=== PATIENT | female | born 1935 | race Caucasian/White ===

== ENCOUNTER → 2016-09-15 | Outpatient (CLI) | payer MEDICARE, MEDICAID ==
[~2016-09-15] MED LIST: ANAS1TAB7 PO; ATOR10TA66 PO; ATRV10T; B2/V1TAB PO; BENZ-13 PO; BENZ200C25; BETA1BEA; BISA5TAB8 PO; BSC10SU; CALC1TAB53 TP; CINA30TA2 PO; DOXY-227 PO; FAMO-119 PO; FAMO20TA3 PO; FENO145T2; GLYB6TAB; HYDR-3816 PO; ICAPS; IRON50VI; LISI20TA; METO-272 PO; METO25TA2; MNTL10T; MTL5T; NF-GLIP2.5 PO; NUT.237L54; ONDA4TAB8 PO; PANT40TA2 PO; POLY119P5 PO; QUET25TA PO; SENSIPAR; SEVE800T7 PO; TR5C15; TRIM100T7 PO; VALS1TAB4; WARF-48 PO; WARF1TAB6 PO; [UNRECOGNIZED DRUG - OTHER]; lipitor PO
--- OUTSIDE RECORDS SUMMARY | 2016-09-15 13:35 | XMS REPORT | Continuity of Care Document ---
Author Author [facility] Organization [facility] Address Unknown Phone Unavailable Care Team Providers Care Bailing Machine Operator Name Role Phone Self, Roque PCP [phone] Source Comments Some departments are not documenting in the electronic medical record. If you do not see the information that you expected, contact Release of Information in the Health Information Management department at [phone] for further assistance in locating additional records.[facility] Active Allergies and Adverse Reactions Allergen Noted Date Severity Reactions Comments Actos 03/01/2012 UNKNOWN Ambien 03/01/2012 UNKNOWN Benzonatate 03/01/2012 UNKNOWN Bextra 03/01/2012 UNKNOWN Codeine 03/01/2012 UNKNOWN Detrol 03/01/2012 UNKNOWN Hiprex 03/01/2012 UNKNOWN Levaquin 03/01/2012 UNKNOWN Macrobid 03/01/2012 UNKNOWN Macrodantin 03/01/2012 UNKNOWN Metolazone 03/01/2012 UNKNOWN Naprosyn 03/01/2012 UNKNOWN Neurontin 03/01/2012 UNKNOWN Pcn 03/01/2012 UNKNOWN Phenergan 03/01/2012 UNKNOWN Prednisone 03/01/2012 UNKNOWN Prevacid 03/01/2012 UNKNOWN Sulfamethoxazole-Trimetho 03/01/2012 UNKNOWN prim Tylenol 03/01/2012 UNKNOWN Current Medications Prescription Sig. Disp. Refills Start End Date Status Date FENOFIBRATE PO Take by mouth. Active VALSARTAN (DIOVAN PO) Take by mouth. Active QUETIAPINE FUMARATE Take by mouth. Active (SEROQUEL PO) ROSUVASTATIN CALCIUM Take by mouth. Active (CRESTOR PO) BETA-CAROTENE(A) W-C & Take by mouth. Active E/MIN (ICAPS PO) SEVELAMER CARBONATE Take by mouth. Active (RENVELA PO) WARFARIN SODIUM (WARFARIN Take by mouth. Active PO) GLIPIZIDE PO Take by mouth. Active CINACALCET HCL (SENSIPAR Take by mouth. Active PO) Active Problems Problem Noted Date Entropion 04/25/2013 Exudative age-related macular degeneration of left eye 08/09/2012 Overview: Had Eylea x 1-2 doses in summer Lucentis last two doses, appears to be responding now L ast Assessment & Plan: OCT shows no re-accumulation of fluid Recommend Lucentis OS today and extend interval to 5 wks R/b/a discussed. Informed consent obtained. No complications. RTC 5 wks Mild nonproliferative diabetic retinopathy OU 04/24/2012 Last Assessment & Plan: Doesn't know HgbA1c Reports AM FSBS ~104-106 typically center involving [facility] OU - Diabetic macular edema 04/24/2012 PC IOL OU - Lens replaced by other means 04/24/2012 Last Assessment & Plan: Stable. Continue to monitor. Social History Tobacco Use Types Packs/Day Years Used Date Former Smoker Cigarettes 0.5 Quit: 10/23/1967 Comments: Quit 1967 Alcohol Use Drinks/Week oz/Week Comments Yes rare alcohol consumption Last Filed Vital Signs Vital Sign Reading Time Taken Blood Pressure 107/46 08/13/2013 1:57 PM LINSEED OIL ORDER FILLER Pulse 76 08/13/2013 1:57 PM [employer] ORDER FILLER Temperature 36.6 C (97.9 F) 04/10/2013 1:15 PM CDT Respiratory Rate - - Height 1.524 m (5') 06/06/2013 12:50 PM CDT Weight 90.357 kg (199 lb 3.2 oz) 08/13/2013 1:57 PM [employer] ORDER FILLER Body Mass Index 38.9 08/13/2013 1:57 PM LINSE[employer] O[employer] ORDER FILLER Oxygen Saturation 98% 04/10/2013 1:15 PM CDT Plan of Care Health Maintenance Due Date Last Done Comments Physical (Comprehensive) 1944 Exam Pertussis Vaccine 1948 Tetanus Vaccine 1954 Foot Exam 1955 Hba1c 1955 Microalbumin 1955 Shingles Vaccine 1997 Osteoporosis Screening 2002 Prevnar/Pneumovax (#1) 2002 Dilated Eye Exam 05/02/2014 05/02/2013, 04/02/2013, 02/28/2013 Additional history exists Influenza Vaccine 04/14/2015 Results from Last 3 Months Not on file
--- NOTE | 2016-09-15 15:10 | Diagnostic Imaging Report ---
PROCEDURE: MRI left upper extremity without contrast. TECHNIQUE: Multiplanar, multisequence non contrast-enhanced MRI of the left upper extremity was accomplished. INDICATION: Left shoulder pain. FINDINGS: There is no os acromiale or Hill-Sachs deformity. There is acromioclavicular osteoarthritis with inferior osteophytes more prominent at the clavicular side of the joint. This is associated with mild impression upon the underlying supraspinatus myotendinous junction. The supraspinatus and infraspinatus tendons demonstrate thickening with increased signal compatible with tendinosis. There is a focal bursal-side tear along the tendon insertion site in the supraspinatus. No full-thickness or retracted tear. The subscapularis tendon is associated with distal intrasubstance partial tear. The long head of biceps tendon is within its groove. There is a small glenohumeral joint effusion. There is increased signal through the superior segment of the labrum may relate to a SLAP tear. This can be better evaluated with an MR arthrogram, however. There is slight atrophy of the subscapularis and deltoid muscles. The bone marrow signal demonstrates tiny cystic changes deep to the bicipital groove and along the insertion site of the supraspinatus and infraspinatus tendons. IMPRESSION: 1. 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 2. Rotator cuff tendinosis with bursal side partial tear at the tendon insertion of the supraspinatus. 3. Intrasubstance partial tear of the subscapularis tendon. 4. Suggestion of a SLAP tear. This can be better evaluated with MR arthrogram if needed. Dictated by: Dictated on workstation # [id number]
== END ==
LOC: RAD 13:30
PROVIDERS: ATTEND Orthopaedic Surgery
DX: M25.512 Pain in left shoulder (principal)
CPT/HCPCS: 73221

== ENCOUNTER 2016-10-24 13:45 | Emergency (ER) | payer MEDICARE, MEDICAID ==
[~2016-10-24] VITALS: Ht 165.1 cm; Wt 77.6 kg
[~2016-10-24 13:45] MED LIST changes: -ANAS1TAB7 PO; -ATOR10TA66 PO; -B2/V1TAB PO; -BENZ-13 PO; -BISA5TAB8 PO; -DOXY-227 PO; -FAMO-119 PO; -FAMO20TA3 PO; -HYDR-3816 PO; -METO-272 PO; -ONDA4TAB8 PO; -POLY119P5 PO; -WARF-48 PO
--- OUTSIDE RECORDS SUMMARY | 2016-10-24 13:50 | XMS REPORT | Continuity of Care Document ---
Author Author [facility] Organization [facility] Address Unknown Phone Unavailable Care Team Providers Care Consumer Recruiter Name Role Phone Self, Roque PCP [phone] Source Comments Some departments are not documenting in the electronic medical record. If you do not see the information that you expected, contact Release of Information in the Health Information Management department at [phone] for further assistance in locating additional records.[facility] Active Allergies and Adverse Reactions Allergen [...] Taken Blood Pressure 107/46 08/13/2013 1:57 PM FILM READER Pulse 76 08/13/2013 1:57 PM FILM READER Temperature 36.6 C (97.9 F) 04/10/2013 1:15 PM CDT Respiratory Rate - - Height 1.524 m (5') 06/06/2013 12:50 PM CDT Weight 90.357 kg (199 lb 3.2 oz) 08/13/2013 1:57 PM FILM READER Body Mass Index 38.9 08/13/2013 1:57 PM FILM READER Oxygen Saturation 98% 04/10/2013 1:15 PM CDT [...]
--- NOTE | 2016-10-24 14:02 | Diagnostic Imaging Report ---
EXAM: CT head. TECHNIQUE: Noncontrast axial images of the brain were obtained. INDICATION: Syncope. The left side facial droop and left arm weakness. FINDINGS: There is no intracranial hemorrhage, edema or mass effect. The brain parenchyma demonstrate the mild periventricular and deep white hypodensities compatible with chronic microvascular ischemic changes. No hydrocephalus. The visualized portions of the orbits and paranasal sinuses appear unremarkable. IMPRESSION: No acute process. Dictated by: Dictated on workstation # [id number]
--- NOTE | 2016-10-24 14:09 | Diagnostic Imaging Report ---
EXAMINATION: Portable upright radiograph of the chest. INDICATION: Syncope. Left-sided facial droop and left arm weakness. COMPARISON: 11/01/2015. FINDINGS: There is mild interstitial thickening which may relate to vascular congestion. There is minimal right basilar infiltrates or atelectasis. The heart size is slightly enlarged. No significant effusion or pneumothorax. The mediastinum and dee appear unremarkable. Surgical clips in the left axilla/upper left chest region seen. IMPRESSION: There is cardiomegaly with mild vascular congestion. Minimal right basilar infiltrates or atelectasis also present. Dictated by: Dictated on workstation # [id number]
--- NOTE | 2016-10-24 14:31 | ED Neurological Problem ---
General Chief Complaint: Neuro-Stroke Like Symptoms Stated Complaint: POSS STROKE Nursing Triage Note: Was receiving dialysis and had syncopal episode. Was reported to be unresponsive but improved. EMS reported left sided drooping. On arrival- no drooping, lethargic but responsive confused to place. Movement noted to arms and legs, able to squeeze arms and pull with feet. Refuses to hold arms or legs up. States she was been very weak for several days Nursing Sepsis Screen: No Definite Risk Source: patient, EMS, RN notes reviewed, caregiver Exam Limitations: clinical condition History of Present Illness Time seen by provider: 13:46 Initial Comments As above and below. Patient believes incident is related to her neck problem. Apparently going to have surgery on neck by Dr. Hand once she is cleared by Cardiology c/ who she is scheduled to see 11/19/16, which is the soonest Dr. Glover could get her in. Denies any chest pain. Associated Symptoms: confusion loss of consciousness weakness Allergies and Home Medications Allergies Coded Allergies: Nitrofurantoin Macrocrystal (Unverified Allergy, Unknown, 10/24/16) benzonatate (Unverified Allergy, Unknown, 10/24/16) gabapentin (Unverified Allergy, Unknown, 10/24/16) lansoprazole (Unverified Allergy, Unknown, 10/24/16) methenamine (Unverified Allergy, Unknown, 10/24/16) naproxen (Unverified Allergy, Unknown, 10/24/16) nitrofurantoin (Unverified Allergy, Unknown, 10/24/16) pioglitazone HCl (Unverified Allergy, Unknown, 10/24/16) prednisone (Unverified Allergy, Unknown, 10/24/16) promethazine (Unverified Allergy, Unknown, 10/24/16) valdecoxib (Unverified Allergy, Unknown, 10/24/16) zolpidem tartrate (Unverified Allergy, Unknown, 10/24/16) levofloxacin (Unverified Adverse Reaction, Unknown, 10/24/16) tolterodine tartrate (Unverified Adverse Reaction, Unknown, 10/24/16) Uncoded Allergies: MELOLAZONE (Allergy, Unknown, 06/23/14) NITROFURATOIN (Allergy, Unknown, 06/23/14) SUFAMETHOXAZOLE (Allergy, Unknown, 06/23/14) APAP/CODEINE (Adverse Reaction, Unknown, 06/23/14) Home Medications 1 CAP BID (Reported) #1 5 MG PO UD (Reported) Calcium Acetate/Al Sulfate 1 Tab.eff Tablet.eff 2 TAB.EFF TP TID (Reported) Cinacalcet HCl 30 Mg Tablet 30 MG PO (Reported) Famotidine 20 Mg Tablet #30 20 MG PO HS Prescribed by: AMY DICKEY on 10/24/16 1637 Fenofibrate,Micronized 145 Mg Tablet (Reported) Glipizide 2.5 Mg Tab 2.5 MG PO (Reported) Hctz/Valsartan 1 Each Tablet (Reported) Pantoprazole Sodium 40 Mg Tablet.dr 40 MG PO DAILY (Reported) Quetiapine Fumarate 25 Mg Tablet 12.5 MG PO HS (Reported) Sevelamer Carbonate 800 Mg Tablet (Reported) Trimethoprim 100 Mg Tablet 100 MG PO DAILY (Reported) Constitutional: see HPI weakness Cardiovascular: see HPI syncope : No Musculoskeletal: neck pain Psychiatric/Neurological: See HPI Weakness All Other Systems Reviewed Negative Unless Noted: Yes Past Slsfrti-Hspmbn-Mwsgto Hx Patient Social History Alcohol Use: Denies Use Recreational Drug Use: No Smoking Status: Former Smoker 2nd Hand Smoke Exposure: No Recent Foreign Travel: No Contact w/Someone Who Travel: No Recent Infectious Disease Expo: No Recent Hopitalizations: No Immunizations Up To Date Tetanus Booster (TDap): Unknown Date of Influenza Vaccine: May 14, 2014 Seasonal Allergies Seasonal Allergies: Yes Surgeries HX Surgeries: Yes (CYSTOCELE, RECTOCELE, SPLEEN) Surgeries: Hysterectomy Respiratory Hx Respiratory Disorders: No Cardiovascular Hx Cardiac Disorders: Yes Cardiac Disorders: Atrial Fibrillation, High Cholesterol, Hypertension Neurological Hx Neurological Disorders: No 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 System 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 Genitourinary Hx Genitourinary Disorders: Yes Genitourinary Disorders: Dialysis, UTI-Chronic Gastrointestinal Hx Gastrointestinal Disorders: No Musculoskeletal Hx Musculoskeletal Disorders: No Endocrine Hx Endocrine Disorders: Yes (HYPERPARATHYROIDISM) Endocrine Disorders: Diabetes, Non-Insulin dep HEENT HX ENT Disorders: No Cancer Hx Cancer: No Psychosocial Hx Psychiatric Problems: Yes Behavioral Health Disorders: Bipolar Integumentary HX Skin/Integumentary Disorder: No Blood Transfusions Hx Blood Disorders: No Adverse Reaction to a Blood Tr: No Physical Exam Vital Signs Vital Sign - Last 12Hours 10/24/16 13:45 Temp 98.6 Pulse 78 Resp 15 B/P 153/59 Pulse Ox 97 Capillary Refill : Less Than 3 Seconds General Appearance: WD/WN no apparent distress HEENT: PERRL/EOMI normal ENT inspection Neck: supple Respiratory: no respiratory distress Cardiovascular: regular rate, rhythm Neurologic/Psychiatric: no motor/sensory deficits alert depressed affect Crainal Nerves: normal hearing normal speech PERRL Coordination/Gait: normal finger to nose Motor/Sensory: no motor deficit no sensory deficit no pronator drift Skin: warm/dry Stroke NIH Stroke Scale Assessment Level of Consciousness: 0=Alert Level of Consciousness-Questio: 0=Answers both month/age LOC Commands: 0=Performs both tasks Gaze: 0=Normal Visual Hernandez: 0=No visual loss Facial Movement (Facial Paresi: 0=Normal symmetrical mnt Motor Function-Arms Right: 3=No effort/gravity Motor Function-Arms Left: 3=No effort/gravity Motor Function-Legs Right: 3=No effort/gravity Motor Function-Legs Left: 3=No effort/gravity Limb Ataxia: 0=Absent Sensory: 1=Mild to Moderate loss Best Language: 0=No aphasia Dysarthria: 0=Normal Extinction & Inattention: 0=No abnormality Focused Exam Lactic Acid Level Laboratory Tests Test 10/24/16 14:29 10/24/16 14:37 Glucometer 125MG/DL (70-110) H Alanine Aminotransferase (ALT/SGPT) 19U/L (0-55) Albumin 3.4G/DL (3.2-4.5) Alkaline Phosphatase 76U/L (40-136) Anion Gap 13MMOL/L (5-14) Aspartate Amino Transf (AST/SGOT) 18U/L (5-34) BUN/Creatinine Ratio 6 Blood Urea Nitrogen 27MG/DL (7-18) H Calcium Level 9.9MG/DL (8.5-10.1) Carbon Dioxide Level 32MMOL/L (21-32) Chloride Level 95MMOL/L (98-107) L Creatinine 4.25MG/DL (0.60-1.30) H Estimat Glomerular Filtration Rate 10 Glucose Level 121MG/DL (70-105) H Potassium Level 3.9MMOL/L (3.6-5.0) Sodium Level 140MMOL/L (135-145) Total Bilirubin 0.3MG/DL (0.1-1.0) Total Protein 6.9G/DL (6.4-8.2) Troponin I < 0.30NG/ML (<0.30) Progress/Results/Core Measures Results/Orders Lab Results Laboratory Tests Test 10/24/16 14:29 10/24/16 14:37 Range/Units Glucometer 125 H 70-110 MG/DL Activated Partial Thromboplast Time 28 24-35 SEC Alanine Aminotransferase (ALT/SGPT) 19 0-55 U/L Albumin 3.4 3.2-4.5 G/DL Alkaline Phosphatase 76 40-136 U/L Anion Gap 13 5-14 MMOL/L Aspartate Amino Transf (AST/SGOT) 18 5-34 U/L BUN/Creatinine Ratio 6 Band Neutrophils 0 % Basophils # (Auto) 0.1 0.0-0.1 10^3/uL Basophils % (Manual) 1 % Basophils (%) (Auto) 1 0-10 % Blood Morphology Comment NORMAL Blood Urea Nitrogen 27 H 7-18 MG/DL Calcium Level 9.9 8.5-10.1 MG/DL Carbon Dioxide Level 32 21-32 MMOL/L Chloride Level 95 L 98-107 MMOL/L Creatinine 4.25 H 0.60-1.30 MG/DL D-Dimer 0.43 0.00-0.49 UG/ML Eosinophils # (Auto) 0.2 0.0-0.3 10^3/uL Eosinophils % (Manual) 2 % Eosinophils (%) (Auto) 1 0-10 % Estimat Glomerular Filtration Rate 10 Glucose Level 121 H 70-105 MG/DL Hematocrit 34 L 35-52 % Hemoglobin 11.1 L 11.5-16.0 G/DL INR Comment 1.3 0.8-1.4 Lymphocytes # (Auto) 3.3 1.0-4.0 X 10^3 Lymphocytes % (Manual) 25 % Lymphocytes (%) (Auto) 21 12-44 % Mean Corpuscular Hemoglobin 31 25-34 PG Mean Corpuscular Hemoglobin Concent 33 32-36 G/DL Mean Corpuscular Volume 93 80-99 FL Mean Platelet Volume 11.6 H 7.4-10.4 FL Monocytes # (Auto) 1.8 H 0.0-1.0 X 10^3 Monocytes % (Manual) 10 % Monocytes (%) (Auto) 11 0-12 % Neutrophils # (Auto) 10.4 H 1.8-7.8 X 10^3 Neutrophils % (Manual) 62 % Neutrophils (%) (Auto) 66 42-75 % Platelet Count 402 H 130-400 10^3/uL Potassium Level 3.9 3.6-5.0 MMOL/L Prothrombin Time 16.3 H 12.2-14.7 SEC Red Blood Count 3.60 L 4.35-5.85 10^6/uL Red Cell Distribution Width 16.0 H 10.0-14.5 % Sodium Level 140 135-145 MMOL/L Total Bilirubin 0.3 0.1-1.0 MG/DL Total Protein 6.9 6.4-8.2 G/DL Troponin I < 0.30 <0.30 NG/ML White Blood Count 15.7 H 4.3-11.0 10^3/uL My Orders Orders-AMY DICKEY DO Cbc With Automated Diff (10/24/16 13:46) Protime With Inr (10/24/16 13:46) Partial Thromboplastin Time (10/24/16 13:46) Comprehensive Metabolic Panel (10/24/16 13:46) Fibrin Degradation Products (10/24/16 13:46) Troponin I (10/24/16 13:46) Chest 1 View, Ap/Pa Only (10/24/16 13:46) Catheter(Urinary) Insert & Ass 03,15 (10/24/16 13:46) Ekg Tracing (10/24/16 13:46) Nothing By Mouth (10/24/16 Dinner) Accucheck Stat ONCE (10/24/16 13:46) Saline Lock/Iv-Start (10/24/16 13:46) Saline Lock/Iv-Start (10/24/16 13:46) Vital Signs-Stroke Q1H (10/24/16 13:46) Ct Head Wo-R/O Stroke (10/24/16 13:46) O2 (10/24/16 13:46) Intake & Output 06,14,22 (10/24/16 13:46) Monitor-Rhythm Ecg Trace Only (10/24/16 13:46) Dysphagia Screening Tool (10/24/16 13:46) Manual Differential (10/24/16 14:37) Vital Signs/I&O Vital Sign - Last 12Hours 3/13/17 13:45 Temp 98.6 Pulse 78 Resp 15 B/P 153/59 Pulse Ox 97 Blood Pressure Mean: 90 ECG Initial ECG Impression Date: Oct 24, 2016 Initial ECG Impression Time: 14:25 Initial ECG Rate: 77 Initial ECG Rhythm: Normal Sinus Comment consider anterior infarct Diagnostic Imaging Diagonstic Imaging: Xray, CT Plain Films/CT/US/NM/MRI: chest, head (nothing really acute per CT head or CXR chest per radiologist) Departure Impression Impression: Primary Impression: Syncope Additional Impression: ESRD (end stage renal disease) on dialysis Disposition: HOME, SELF-CARE Condition: Stable Departure-Patient Inst. Decision time for Depature: 16:35 Referrals: Kian AGUILAR MD Patient Instructions: Syncope (Fainting) (DC) Scripts Famotidine (Pepcid)20 Mg [id number] Mg PO HS #30 TAB Ref 0 Prov:AMY DICKEY DO 10/24/16 AMY DICKEY DO Oct 24, 2016 14:31
[2016-10-24 15:37] LABS: BASOPHILS # (AUTO) 0.1 10^3/uL (0.0-0.1); BASOPHILS % (AUTO) 1 % (0-10); EOSINOPHILS # (AUTO) 0.2 10^3/uL (0.0-0.3); EOSINOPHILS % (AUTO) 1 % (0-10); LYMPHOCYTES # (AUTO) 3.3 X 10^3 (1.0-4.0); LYMPHOCYTES % (AUTO) 21 % (12-44); MEAN CORPUSCULAR HEMOGLOBIN 31 PG (25-34); MEAN CORPUSCULAR HGB CONC 33 G/DL (32-36); MEAN CORPUSCULAR VOLUME 93 FL (80-99); MEAN PLATELET VOLUME 11.6 FL (7.4-10.4); MONOCYTES # (AUTO) 1.8 X 10^3 (0.0-1.0); MONOCYTES % (AUTO) 11 % (0-12); NEUTROPHILS # (AUTO) 10.4 X 10^3 (1.8-7.8); NEUTROPHILS % (AUTO) 66 % (42-75); PLATELET COUNT 402 10^3/uL (130-400); WHITE BLOOD COUNT 15.7 10^3/uL (4.3-11.0)
[2016-10-24 15:48] LABS: INR 1.3 (0.8-1.4); PROTHROMBIN TIME PATIENT 16.3 SEC (12.2-14.7)
[2016-10-24 15:58] LABS: ALANINE AMINOTRANSFERASE 19 U/L (0-55); ALBUMIN 3.4 G/DL (3.2-4.5); ANION GAP 13 MMOL/L (5-14); ASPARTATE AMINO TRANSFERASE 18 U/L (5-34); BILIRUBIN,TOTAL 0.3 MG/DL (0.1-1.0); BLOOD UREA NITROGEN 27 MG/DL (7-18); BUN/CREATININE RATIO 6; CALCIUM 9.9 MG/DL (8.5-10.1); CARBON DIOXIDE 32 MMOL/L (21-32); CHLORIDE 95 MMOL/L (98-107); CREATININE SERUM 4.25 MG/DL (0.60-1.30); GFR ESTIMATED 10; GLUCOSE 121 MG/DL (70-105); POTASSIUM 3.9 MMOL/L (3.6-5.0); SODIUM 140 MMOL/L (135-145); TOTAL PROTEIN 6.9 G/DL (6.4-8.2)
[2016-10-24 16:04] LABS: TROPONIN I < 0.30 NG/ML (<0.30)
[2016-10-24 16:11] LABS: BAND NEUTROPHILS 0 %; BASOPHILS % (MANUAL) 1 %; EOSINOPHILS % (MANUAL) 2 %; LYMPHOCYTES % (MANUAL) 25 %; NEUTROPHILS % (MANUAL) 62 %
[2016-10-24] MEDS ORDERED: FAMO-119 PO (16:37)
[2016-10-24 16:56] VITALS: BP 165/78
[2016-12-09] MEDS ORDERED: BISA5TAB8 PO (10:44)
[2016-12-09] MEDS ORDERED: HYDR-3816 PO (10:44)
== END 2016-10-24 16:59 | disposition home or self-care (01) ==
LOC: EDUNIT# 13:45 → ER 13:46
DX: R55 Syncope and collapse (principal); I51.7 Cardiomegaly; I12.0 Hypertensive chronic kidney disease with stage 5 chronic kidney disease or end stage renal disease; N18.6 End stage renal disease; Z99.2 Dependence on renal dialysis; E11.9 Type 2 diabetes mellitus without complications; Z79.84 Long term (current) use of oral hypoglycemic drugs; Z79.899 Other long term (current) drug therapy
CPT/HCPCS: 36415; 70450; 71010; 80053; 82962; 84484; 85007; 85027; 85379; 85610; 85730; 93005; 93041

== ENCOUNTER → 2016-10-27 | Outpatient (CLI) | payer MEDICARE, MEDICAID ==
[~2016-10-27] MED LIST changes: +ANAS1TAB7 PO; +ATOR10TA66 PO; +B2/V1TAB PO; +BENZ-13 PO; +BISA5TAB8 PO; +DOXY-227 PO; +FAMO-119 PO; +FAMO20TA3 PO; +HYDR-3816 PO; +METO-272 PO; +ONDA4TAB8 PO; +POLY119P5 PO; +WARF-48 PO
--- OUTSIDE RECORDS SUMMARY | 2016-10-27 13:19 | XMS REPORT | Continuity of Care Document ---
Author Author [facility] Organization [facility] Address Unknown Phone Unavailable Care Team Providers Care Lock Tender Chief Operator Name Role Phone Self, Roque PCP [phone] Source Comments Some departments are not documenting in the electronic medical record. If you do not see the information that you expected, contact Release of Information in the Health Information Management department at [phone] for further assistance in locating additional records.[facility] Active Allergies and Adverse Reactions Allergen [...] Taken Blood Pressure 107/46 08/13/2013 1:57 PM [employer]ICERS [employer] GU[employer] Pulse 76 08/13/2013 1:57 PM [employer] Temperature 36.6 C (97.9 F) 04/10/2013 1:15 PM CDT Respiratory Rate - - Height 1.524 m (5') 06/06/2013 12:50 PM CDT Weight 90.357 kg (199 lb 3.2 oz) 08/13/2013 1:57 PM [employer] Body Mass Index 38.9 08/13/2013 1:57 PM [employer] Oxygen Saturation 98% 04/10/2013 1:15 PM CDT [...]
--- NOTE | 2016-10-31 00:13 | ECHOCARDIOGRAPHY REPORT ---
PROCEDURE PHYSICIAN: ANDREW LOVE DATE OF PROCEDURE: 10/27/2016 TWO DIMENSIONAL ECHOCARDIOGRAM REPORT PRIMARY PHYSICIAN: OTHER PHYSICIAN: REFERRING PHYSICIAN: Dr. Ledezma ORDERING PHYSICIAN: INDICATION FOR THE PROCEDURE: Atrial fibrillation. MEASUREMENTS DERIVED VALUES LV DIAMETER (LAX) NORMALS NORMALS Diastolic 4.7 (3.6-5.2) Eject. Fract. 60% (60%+/-6%) Systolic (2.3-3.9) Diastolic Vol. % Shortening (0.22-0.42) Systolic Vol. Aortic Root IVS THICKNESS Diastolic 1 (0.6-1.1) LVPW THICKNESS Diastolic 1 (0.6-1.1) LA DIAMETER Systolic 4 (2.1-3.7) FINDINGS: 1. Technical quality is good. 2. The left ventricle is normal in size with normal contractility. Systolic function appeared to be normal. Estimated ejection fraction 60%. Diastolic dysfunction is suggested by Doppler. 3. The left atrium is in the upper normal limit in size. No clot or thrombus were seen within the left atrium. 4. The right atrium and right ventricle are normal in size. No clot or thrombus were seen within the right side. 5. Mitral valve is calcified with mild mitral regurgitation noted by color Doppler flow. No mitral valve prolapse. No mitral valve stenosis. 6. Aortic valve is calcified, trileaflet with normal opening and closing pattern. No significant aortic stenosis or regurgitation was seen. 7. Tricuspid valve is normal in morphology with mild tricuspid regurgitation noted by color Doppler flow. Doppler across tricuspid valve estimated pulmonary artery pressure of 16+ right atrial pressure. 8. Pulmonic valve is functioning normally. 9. No pericardial effusion. IN CONCLUSION: 1. Normal left ventricular size and systolic function. Estimated ejection fraction 60%. Diastolic dysfunction is suggested by Doppler. 2. Left atrium is in the upper normal limit in size. 3. Mild mitral and tricuspid regurgitation. 4. Estimated pulmonary artery pressure of 25 mmHg. 5. Aortic valve stenosis. No aortic stenosis. Job ID: [id number] Dictated Date: 10/30/2016 10:55:49 Radiology Manager Date: 10/31/2016 00:10:34 / shirley
== END ==
LOC: CARD 13:16
PROVIDERS: ATTEND Internal Medicine Cardiovascular Disease
DX: I48.91 Unspecified atrial fibrillation (principal); I10 Essential (primary) hypertension; E78.5 Hyperlipidemia, unspecified; E21.3 Hyperparathyroidism, unspecified; N39.0 Urinary tract infection, site not specified; Z72.0 Tobacco use
CPT/HCPCS: 93306

== ENCOUNTER 2016-10-31 09:54 | Emergency (ER) | payer MEDICARE, MEDICAID ==
[~2016-10-31] VITALS: Ht 165.1 cm; Wt 77.6 kg
[~2016-10-31 09:54] MED LIST changes: -ANAS1TAB7 PO; -ATOR10TA66 PO; -B2/V1TAB PO; -BENZ-13 PO; -BISA5TAB8 PO; -DOXY-227 PO; -FAMO20TA3 PO; -HYDR-3816 PO; -METO-272 PO; -ONDA4TAB8 PO; -POLY119P5 PO; -WARF-48 PO
--- OUTSIDE RECORDS SUMMARY | 2016-10-31 10:01 | XMS REPORT | Continuity of Care Document ---
Author Author [facility] Organization [facility] Address Unknown Phone Unavailable Care Team Providers Care Women'S Soccer Coach Name Role Phone Self, Roque PCP [phone] Source Comments Some departments are not documenting in the electronic medical record. If you do not see the information that you expected, contact Release of Information in the Health Information Management department at [phone] for further assistance in locating additional records.[facility] Active Allergies and Adverse Reactions Allergen [...] Taken Blood Pressure 107/46 08/13/2013 1:57 PM DIRECTOR EMPLOYMENT Pulse 76 08/13/2013 1:57 PM [employer]OR [employer]PL[employer]MENT Temperature 36.6 C (97.9 F) 04/10/2013 1:15 PM CDT Respiratory Rate - - Height 1.524 m (5') 06/06/2013 12:50 PM CDT Weight 90.357 kg (199 lb 3.2 oz) 08/13/2013 1:57 PM [employer] Body Mass Index 38.9 08/13/2013 1:57 PM [employer]OR [employer]PL[employer]MENT Oxygen Saturation 98% 04/10/2013 1:15 PM CDT [...]
--- NOTE | 2016-10-31 10:57 | Diagnostic Imaging Report ---
EXAMINATION: Two views of the right hip. INDICATION: Fall. FINDINGS: There is no fracture, dislocation, or radiopaque foreign body seen. Mild marginal osteophytes are noted. IMPRESSION: Mild right hip degenerative changes. Dictated by: Dictated on workstation # [id number]
--- NOTE | 2016-10-31 10:58 | Diagnostic Imaging Report ---
INDICATION: Status post fall with right-sided facial pain and neck pain. TECHNIQUE: A frontal chest was obtained at 1055 hours. COMPARISON: 10/24/2016. FINDINGS: There is cardiomegaly. There is mild central vascular prominence. There are chronic appearing increased interstitial markings. There is some linear atelectatic change in the right midlung. There is no pneumothorax, pleural fluid, or consolidation. There are surgical clips in the left upper chest. IMPRESSION: Cardiomegaly with chronic changes as above. No acute appearing abnormality. Dictated by: Dictated on workstation # [id number]
--- NOTE | 2016-10-31 10:59 | Diagnostic Imaging Report ---
EXAMINATION: AP view of the pelvis. INDICATION: Fall. FINDINGS: There is no fracture, dislocation, or radiopaque foreign body. There are mild degenerative changes in the hip joints and moderate degenerative sclerotic changes in the SI joints. There are also degenerative changes at the symphysis pubis and deformity along the inferior left pubic ramus, probably related to old injury. There is also posterior fusion hardware in the lower lumbar spine. IMPRESSION: No acute process. Dictated by: Dictated on workstation # [id number]
--- NOTE | 2016-10-31 11:12 | Diagnostic Imaging Report ---
PROCEDURE: CT head, face, and cervical spine without contrast. TECHNIQUE: Multiple contiguous axial images were obtained through the head, neck, and facial bones without the use of intravenous contrast. Sagittal and coronal reformations through the cervical spine and facial bones were also performed. INDICATION: Fall. FINDINGS: CT HEAD: There is no intracranial hemorrhage, edema or mass effect. The brain parenchyma demonstrate periventricular and deep white matter hypodensities compatible with chronic microvascular ischemic changes. There is no hydrocephalus. No extra-axial fluid collection or hemorrhage is seen. The calvarium appears unremarkable. MAXILLOFACIAL CT: The zygomatic arches are intact. The orbital campbell appear intact. No fracture seen. The paranasal sinuses demonstrate no hemorrhage with intact osseous campbell. Minimal mucosal thickening in the maxillary sinuses and anterior ethmoid air cells seen. The rest of the paranasal sinuses and mastoid air cells are clear. CT CERVICAL SPINE: The alignment of the posterior spinal line is satisfactory. The vertebral body heights are preserved. There is a moderate disc height loss at C7/T1 and mild disc height loss at the C3/4 level. There are posterior osteophytes prominent at C3/4 and C4/5. The predental space is not widened. There is normal alignment of the lateral masses of C1 and C2 and at the atlantooccipital joints. IMPRESSION: CT HEAD: No intracranial hemorrhage. CT MAXILLOFACIAL: No fracture seen. CT CERVICAL SPINE: Degenerative disc disease. No fracture seen. Dictated by: Dictated on workstation # [id number]
--- NOTE | 2016-10-31 11:16 | ED Fall/Injury ---
General Chief Complaint: Trauma-Non Activation Stated Complaint: FALL IN BATHTUB Nursing Triage Note: SEE TRIAGE Source: patient (DIFFICULT HISTORIAN AND VERY HOSTILE AND UNCOOPERATIVE) History of Present Illness Time seen by provider: 10:17 Initial Comments PT ARRIVES VIA POV FROM [facility] STATES SHE WAS TRYING TO GET TO THE BATHROOM AND HAD A BM ON THE FLOOR AND SLIPPED IN IT AND FELL SHE WAS TRYING TO SIT ON THE TOILET, HITTING HER FOREHEAD ON THE FLOOR C/O NECK PAIN ----PT HAS CHRONIC NECK PAIN AND IS TO HAVE SURGERY IN THE VERY NEAR FUTURE, WAS JUST CLEARED ON Monday10/27/16 BY CARDIOLOGY TO HAVE SURGERY. HAS A NECK BRACE AT HOME, BUT HAS NOT BEEN WEARING IT--STATES IS SUPPOSED TO WEAR IT AFTER SURGERY. CERVICAL COLLAR IMMEDIATELY PLACED ON ARRIVAL NO LOSS OF CONSCIOUSNESS NO PARESTHESIAS OR MOTOR DEFICITS NO FACIAL PAIN NO VISION CHANGES NO NAUSEA/VOMITING C/O RIGHT HIP PAIN Location Injury Occurred: HIP HEAD PCP: FT. OZZY BERKOWITZ Allergies and Home Medications Allergies Coded Allergies: Nitrofurantoin Macrocrystal (Unverified Allergy, Unknown, 10/24/16) benzonatate (Unverified Allergy, Unknown, 10/24/16) gabapentin (Unverified Allergy, Unknown, 10/24/16) lansoprazole (Unverified Allergy, Unknown, 10/24/16) methenamine (Unverified Allergy, Unknown, 10/24/16) naproxen (Unverified Allergy, Unknown, 10/24/16) nitrofurantoin (Unverified Allergy, Unknown, 10/24/16) pioglitazone HCl (Unverified Allergy, Unknown, 10/24/16) prednisone (Unverified Allergy, Unknown, 10/24/16) promethazine (Unverified Allergy, Unknown, 10/24/16) valdecoxib (Unverified Allergy, Unknown, 10/24/16) zolpidem tartrate (Unverified Allergy, Unknown, 10/24/16) levofloxacin (Unverified Adverse Reaction, Unknown, 10/24/16) tolterodine tartrate (Unverified Adverse Reaction, Unknown, 10/24/16) Uncoded Allergies: MELOLAZONE (Allergy, Unknown, 06/23/14) NITROFURATOIN (Allergy, Unknown, 06/23/14) SUFAMETHOXAZOLE (Allergy, Unknown, 06/23/14) APAP/CODEINE (Adverse Reaction, Unknown, 06/23/14) Home Medications Calcium Acetate/Al Sulfate 1 Tab.eff Tablet.eff, 2 TAB.EFF TP TID, (Reported) Cinacalcet HCl 30 Mg Tablet, 30 MG PO, (Reported) Famotidine 20 Mg Tablet, 20 MG PO HS, #30 Ref 0 Prescribed by: AMY DICKEY on 10/24/16 1637 Fenofibrate,Micronized 145 Mg Tablet, (Reported) Glipizide 2.5 Mg Tab, 2.5 MG PO, (Reported) Hctz/Valsartan 1 Each Tablet, (Reported) Pantoprazole Sodium 40 Mg Tablet.dr, 40 MG PO DAILY, (Reported) Quetiapine Fumarate 25 Mg Tablet, 12.5 MG PO HS, (Reported) Sevelamer Carbonate 800 Mg Tablet, (Reported) Trimethoprim 100 Mg Tablet, 100 MG PO DAILY, (Reported) [Icaps] , 1 CAP BID, (Reported) [lipitor] , 5 MG PO UD, #1 (Reported) Constitutional: no symptoms reported Eyes: No Symptoms Reported Ears, Nose, Mouth, Throat: no symptoms reported Respiratory: no symptoms reported Cardiovascular: no symptoms reported Gastrointestinal: no symptoms reported Genitourinary: no symptoms reported Musculoskeletal: see HPI Skin: no symptoms reported Psychiatric/Neurological: No Symptoms Reported, Denies Headache, Denies Numbness, Denies Paresthesia, Denies Seizure, Denies Tingling, Denies Weakness Past Mujpgvf-Kfyetu-Bvgaoq Hx Patient Social History Alcohol Use: Denies Use Recreational Drug Use: No Smoking Status: Never a Smoker 2nd Hand Smoke Exposure: No Recent Foreign Travel: No Contact w/Someone Who Travel: No Recent Infectious Disease Expo: No Recent Hopitalizations: No Immunizations Up To Date Tetanus Booster (TDap): Unknown Date of Influenza Vaccine: May 14, 2014 Seasonal Allergies Seasonal Allergies: Yes Surgeries HX Surgeries: Yes (CYSTOCELE, RECTOCELE, SPLEEN;LUMBAR SURGERY; RIGHT AV FISTUAL) Surgeries: Dialysis, Hysterectomy, Orthopedic, Vascular Surgery Respiratory Hx Respiratory Disorders: No Cardiovascular Hx Cardiac Disorders: Yes Cardiac Disorders: Atrial Fibrillation, High Cholesterol, Hypertension Neurological Hx Neurological Disorders: No 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 Genitourinary Hx Genitourinary Disorders: Yes Genitourinary Disorders: Renal Failure, Dialysis, UTI-Chronic Gastrointestinal Hx Gastrointestinal Disorders: No Musculoskeletal Hx Musculoskeletal Disorders: Yes (CHRONIC NECK PAIN ) Musculoskeletal Disorders: Chronic Back Pain Endocrine Hx Endocrine Disorders: Yes (HYPERPARATHYROIDISM) Endocrine Disorders: Parathyroid Disease, Diabetes, Non-Insulin dep HEENT HX ENT Disorders: No Cancer Hx Cancer: No Psychosocial Hx Psychiatric Problems: Yes Behavioral Health Disorders: Anxiety, Bipolar, Depression Integumentary HX Skin/Integumentary Disorder: No Blood Transfusions Hx Blood Disorders: No Adverse Reaction to a Blood Tr: No Physical Exam Vital Signs Vital Sign - Last 12Hours 10/31/16 10:15 Temp 98.5 Pulse 85 Resp 18 B/P (MAP) 207/84 Pulse Ox 100 O2 Delivery Room Air Capillary Refill : Less Than 3 Seconds General Appearance: WD/WN, no apparent distress HEENT: PERRL/EOMI, normal ENT inspection, TMs normal, pharynx normal, other ( NO EXTERNAL EVIDENCE OF TRAUMA) Neck: tender lateral, tender midline Cardiovascular: normal peripheral pulses, regular rate, rhythm, no murmur Respiratory: chest non-tender, normal breath sounds, no respiratory distress, no accessory muscle use Peripheral Pulses: 1+ Dorsalis Pedis (R), 1+ Left Dors-Pedis (L), 1+ Radial Pulses (R), 1+ Radial Pulses (L) Gastrointestinal: normal bowel sounds, non tender, soft Back: normal inspection, no CVA tenderness, no vertebral tenderness Extremities: normal range of motion, no pedal edema, no calf tenderness, normal capillary refill, other (NO TENDERNESS TO HIP, BUT C/O PAIN ON WALKING . 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 nml as tested, no motor/sensory deficits, alert, oriented x 3 Skin: normal color, warm/dry, other (NO EXTERNAL EVIDENCE OF TRAUMA ANYWHERE) Trip Coma Score Best Eye Response: (4) Open Spontaneously Best Verbal Response: (5) Oriented Best Motor Response: (6) Obeys Commands Trip Total: 15 Progress/Results/Core Measures Results/Orders My Orders Orders - ALYSA JACOBS DO Ct Head/Face/Cervical Wo (10/31/16 10:24) Chest 1 View, Ap/Pa Only (10/31/16 10:24) Pelvis (10/31/16 10:24) Hip, Right, 2 Views (10/31/16 10:24) Cervical Collar (10/31/16 10:24) Vital Signs/I&O Vital Sign - Last 12Hours 10/31/16 10/31/16 10/31/16 10:15 11:08 11:50 Temp 98.5 98.5 Pulse 85 88 88 Resp 18 18 18 B/P (MAP) 207/84 207/88 (127) Pulse Ox 100 94 94 O2 Delivery Room Air Blood Pressure Mean: [address] HEAD/MAXILLOFACIALS/CERVICAL SPINE--NO ACUTE PROCESS, CHRONIC SMALL VESSEL CHANGES, DEGENERATIVE CHANGES OF CERVICAL SPINE CXR--NO ACUTE PROCESS, CHRONIC CHANGES PELVIS/ RIGHT HIP XRAYS--NO ACUTE PROCESS, DEGENERATIVE CHANGES IN HIP ALL PER RADIOLOGIST REPORTS @ 1116 Reviewed: Reviewed by Me Departure Impression Impression: Primary Impression: Status post fall Additional Impressions: Head contusion Cervical strain EXACERBATION OF CHRONIC NECK PAIN Contusion of right hip Disposition: [address] [facility] Departure-Patient Inst. Referrals: SELF,PAO LOPEZ (PCP/Family) Primary Care Physician Patient Instructions: Chronic Neck Pain (DC), Contusion (DC), Hip Pain (DC), Hip Pain in Older People, Minor Head Injury (DC), Neck Sprain (DC), Preventing Falls in the Older Adult Add. Discharge Instructions: WEAR YOUR CERVICAL COLLAR AT ALL TIMES TAKE YOUR REGULAR MEDICATIONS PRESCRIBED ACTIVITIES TOLERATED FOLLOW UP WITH YOUR DR IN 4-5 DAYS IF NO BETTER All discharge instructions reviewed with patient and/or family. Voiced understanding. ALYSA JACOBS DO Oct 31, 2016 11:16
[2016-10-31 11:50] VITALS: BP 183/71
[2016-12-09] MEDS ORDERED: HYDR-3816 PO (10:44)
[2016-12-09] MEDS ORDERED: BISA5TAB8 PO (10:44)
== END 2016-10-31 11:50 ==
LOC: EDUNIT# 09:54 → ER 09:56
DX: S00.93XA Contusion of unspecified part of head, initial encounter (principal); S70.01XA Contusion of right hip, initial encounter; S16.1XXA Strain of muscle, fascia and tendon at neck level, initial encounter; M47.812 Spondylosis without myelopathy or radiculopathy, cervical region; M16.11 Unilateral primary osteoarthritis, right hip; I10 Essential (primary) hypertension; E11.9 Type 2 diabetes mellitus without complications; Z79.84 Long term (current) use of oral hypoglycemic drugs; Z79.899 Other long term (current) drug therapy; W18.2XXA Fall in (into) shower or empty bathtub, initial encounter; Y93.E1 Activity, personal bathing and showering; Y99.8 Other external cause status
CPT/HCPCS: 70450; 70486; 71010; 72125; 72170; 73502; 99282

== ENCOUNTER 2016-11-13 03:15 | Emergency (ER) | payer MEDICARE, MEDICAID ==
[~2016-11-13] VITALS: Ht 165.1 cm; Wt 77.3 kg
[2016-11-13] MEDS ORDERED: SEVE800T7 PO (03:25)
[2016-11-13] MEDS ORDERED: ATOR10TA66 PO (03:25)
[2016-11-13] MEDS ORDERED: METO-272 PO (03:25)
[2016-11-13] MEDS ORDERED: WARF-48 PO (03:25)
[2016-11-13] MEDS ORDERED: ANAS1TAB7 PO (03:25)
[2016-11-13 03:54] LABS: BASOPHILS # (AUTO) 0.1 10^3/uL (0.0-0.1); BASOPHILS % (AUTO) 1 % (0-10); EOSINOPHILS # (AUTO) 0.3 10^3/uL (0.0-0.3); EOSINOPHILS % (AUTO) 2 % (0-10); LYMPHOCYTES % (AUTO) 29 % (12-44); MEAN CORPUSCULAR HEMOGLOBIN 31 PG (25-34); MEAN CORPUSCULAR HGB CONC 32 G/DL (32-36); MEAN CORPUSCULAR VOLUME 95 FL (80-99); MEAN PLATELET VOLUME 11.4 FL (7.4-10.4); MONOCYTES # (AUTO) 1.6 X 10^3 (0.0-1.0); MONOCYTES % (AUTO) 12 % (0-12); NEUTROPHILS % (AUTO) 57 % (42-75); PLATELET COUNT 404 10^3/uL (130-400); RED BLOOD COUNT 3.53 10^6/uL (4.35-5.85); RED CELL DISTRIBUTION WIDTH 15.6 % (10.0-14.5)
[2016-11-13 03:56] LABS: WHITE BLOOD COUNT 13.9 10^3/uL (4.3-11.0)
[2016-11-13 04:11] LABS: ANION GAP 14 MMOL/L (5-14); BLOOD UREA NITROGEN 33 MG/DL (7-18); BUN/CREATININE RATIO 6; CALCIUM 9.6 MG/DL (8.5-10.1); CARBON DIOXIDE 34 MMOL/L (21-32); CHLORIDE 94 MMOL/L (98-107); CREATININE SERUM 5.41 MG/DL (0.60-1.30); GFR ESTIMATED 8; GLUCOSE 126 MG/DL (70-105); POTASSIUM 3.8 MMOL/L (3.6-5.0); SODIUM 142 MMOL/L (135-145)
[2016-11-13 04:19] LABS: TROPONIN I < 0.30 NG/ML (<0.30)
[2016-11-13 04:46] VITALS: BP 186/73
[2016-11-13] MEDS ORDERED: DOXYCYCLINE 100 MG (VIBRAMYCIN) TABLET PO ONE (05:15)
[2016-11-13] MEDS ORDERED: DOXY-227 PO (05:20)
--- NOTE | 2016-11-13 05:21 | ED General ---
General Chief Complaint: Respiratory Problems Stated Complaint: SOA Nursing Triage Note: C/O FEELING SOA SINCE 0100 Nursing Sepsis Screen: No Definite Risk Source of Information: Patient Exam Limitations: No Limitations History of Present Illness Time Seen by Provider: 03:16 Initial Comments This patient presents to the emergency room with complaints of dyspnea since 01: 00. Oxygen saturation was 97 percent on room air. She is noted to be hypertensive with blood pressure 202/70. She has not taken her blood pressure medications. She is a resident of [facility]. She is a dialysis patient who was last dialyzed on Monday. She denies any fever or cough. She does not appear dyspneic on assessment. She was seen last week for fall and found to have no injuries. She had chest pain yesterday early in the morning but no pain for about 24 hours. She has had some left arm swelling. Allergies and Home Medications Allergies Coded Allergies: Nitrofurantoin Macrocrystal (Unverified Allergy, Unknown, 10/24/16) benzonatate (Unverified Allergy, Unknown, 10/24/16) gabapentin (Unverified Allergy, Unknown, 10/24/16) lansoprazole (Unverified Allergy, Unknown, 10/24/16) methenamine (Unverified Allergy, Unknown, 10/24/16) naproxen (Unverified Allergy, Unknown, 10/24/16) nitrofurantoin (Unverified Allergy, Unknown, 10/24/16) pioglitazone HCl (Unverified Allergy, Unknown, 10/24/16) prednisone (Unverified Allergy, Unknown, 10/24/16) promethazine (Unverified Allergy, Unknown, 10/24/16) valdecoxib (Unverified Allergy, Unknown, 10/24/16) zolpidem tartrate (Unverified Allergy, Unknown, 10/24/16) levofloxacin (Unverified Adverse Reaction, Unknown, 10/24/16) tolterodine tartrate (Unverified Adverse Reaction, Unknown, 10/24/16) Uncoded Allergies: MELOLAZONE (Allergy, Unknown, 06/23/14) NITROFURATOIN (Allergy, Unknown, 06/23/14) SUFAMETHOXAZOLE (Allergy, Unknown, 06/23/14) APAP/CODEINE (Adverse Reaction, Unknown, 06/23/14) Home Medications Anastrozole 1 Mg Tablet, 1 TAB PO DAILY, (Reported) Benzonatate 100 Mg Capsule, 100 MG PO TID PRN for COUGH, (Reported) Cinacalcet HCl 30 Mg Tablet, 30 MG PO HS, (Reported) Doxycycline Hyclate 100 Mg Tablet.dr, 100 MG PO BID, #20 Prescribed by: BRITANY ROBERTSON on 11/13/16 0520 Famotidine 20 Mg Tablet, 20 MG PO HS, (Reported) Hctz/Valsartan 1 Each Tablet, (Reported) Hydrocodone/Acetaminophen 1 Each Tablet, 1 EACH PO Q4H PRN for PAIN, (Reported) Metoprolol Succinate 50 Mg Tab.er.24h, 50 MG PO DAILY, (Reported) Ondansetron 4 Mg Tab.rapdis, 4 MG PO Q6H PRN for NAUSEA/VOMITING, (Reported) Pantoprazole Sodium 40 Mg Tablet.dr, 40 MG PO DAILY, (Reported) Polyethylene Glycol 3350 119 Gm Powder, 17 GM PO DAILY PRN for CONSTIPATION, ( Reported) Sevelamer Carbonate 800 Mg Tablet, 3,200 MG PO TIDWM, (Reported) TAKE 3 (800MG) TABS Sevelamer Carbonate 800 Mg Tablet, 1,600 MG PO BID WITH SNACKS, (Reported) Warfarin Sodium 5 Mg Tablet, 5 MG PO DAILY@1700, (Reported) [Icaps] , 1 CAP BID, (Reported) [lipitor] , 5 MG PO HS, (Reported) Constitutional: no symptoms reported EENTM: no symptoms reported Respiratory: see HPI Cardiovascular: see HPI Gastrointestinal: no symptoms reported Genitourinary: no symptoms reported Musculoskeletal: no symptoms reported Skin: no symptoms reported Psychiatric/Neurological: No Symptoms Reported Hematologic/Lymphatic: No Symptoms Reported Past Djhysxw-Qsoset-Bkdwan Hx Patient Social History Alcohol Use: Denies Use Recreational Drug Use: No Smoking Status: Never a Smoker 2nd Hand Smoke Exposure: No Recent Foreign Travel: No Contact w/Someone Who Travel: No Recent Infectious Disease Expo: No Recent Hopitalizations: No Immunizations Up To Date Tetanus Booster (TDap): Unknown Date of Influenza Vaccine: May 14, 2014 Seasonal Allergies Seasonal Allergies: Yes Surgeries HX Surgeries: Yes (CYSTOCELE, RECTOCELE, SPLEEN;LUMBAR SURGERY; RIGHT AV FISTUAL) Surgeries: Breast (mastectomy), Dialysis, Hysterectomy, Orthopedic, Vascular Surgery Respiratory Hx Respiratory Disorders: No Cardiovascular Hx Cardiac Disorders: Yes Cardiac Disorders: Atrial Fibrillation, High Cholesterol, Hypertension Neurological Hx Neurological Disorders: No 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 System 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 Genitourinary Hx Genitourinary Disorders: Yes (DIALYSIS MWF) Genitourinary Disorders: Renal Failure, Dialysis, UTI-Chronic Gastrointestinal Hx Gastrointestinal Disorders: No Musculoskeletal Hx Musculoskeletal Disorders: Yes (CHRONIC NECK PAIN ) Musculoskeletal Disorders: Chronic Back Pain Endocrine Hx Endocrine Disorders: Yes (HYPERPARATHYROIDISM) Endocrine Disorders: Parathyroid Disease, Diabetes, Non-Insulin dep HEENT HX ENT Disorders: No Cancer Hx Cancer: No Psychosocial Hx Psychiatric Problems: Yes Behavioral Health Disorders: Anxiety, Bipolar, Depression Integumentary HX Skin/Integumentary Disorder: No Blood Transfusions Hx Blood Disorders: No Adverse Reaction to a Blood Tr: No Physical Exam Vital Signs Vital Sign - Last 12Hours 11/13/16 11/13/16 03:25 04:46 Temp 97.7 Pulse 67 Resp 18 B/P (MAP) 207/79 Pulse Ox 93 O2 Delivery Room Air O2 Flow Rate 2.00 Capillary Refill : Less Than 3 Seconds General Appearance: No Apparent Distress, WD/WN HEENT: PERRL/EOMI, Normal ENT Inspection Neck: Normal Inspection Respiratory: Lungs Clear, Normal Breath Sounds, No Accessory Muscle Use, No Respiratory Distress Cardiovascular: Regular Rate, Rhythm, No Murmur Gastrointestinal: Normal Bowel Sounds, Non Tender, Soft Extremity: Non Tender, No Calf Tenderness, Swelling Neurologic/Psychiatric: Alert, Oriented x3, No Motor/Sensory Deficits, Normal 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 Vital signs were stable. Patient remained afebrile. There is no tachycardia. Oxygen saturation remained above 90 percent on room air. A trial of antibiotics at home was felt most appropriate. Patient advised to return if symptoms worsen. Doxycycline was administered in the emergency room. ECG Initial ECG Impression Date: Nov 13, 2016 Initial ECG Impression Time: 03:37 Initial ECG Rate: 62 Initial ECG Rhythm: Normal Sinus Comment Sinus rhythm with no ST elevation or depression. Artifact present. No significant abnormal intervals or axis deviation. Diagnostic Imaging Diagonstic Imaging: Xray Plain Films/CT/US/NM/MRI: chest Comments two-view chest x-ray viewed by me. Report not yet available. There appears to be some subtle infiltrate in the right lower lung suggestive of early pneumonia. Departure Impression Impression: Primary Impression: Right lower lobe pneumonia Qualified Codes: J18.1 - Lobar pneumonia, unspecified organism Additional Impressions: Dyspnea Qualified Codes: R06.00 - Dyspnea, unspecified Chest pain Qualified Codes: R07.9 - Chest pain, unspecified End stage renal failure on dialysis Disposition: HOME, SELF-CARE Condition: Improved Departure-Patient Inst. Decision time for Depature: 05:00 Referrals: SELFPAO MD (PCP/Family) Primary Care Physician Patient Instructions: Pneumonia, Adult (DC) Add. Discharge Instructions: Complete your antibiotics as prescribed. Return to the emergency room or call your doctor if symptoms persist or worsen. Keep your dialysis schedule. Take your morning blood pressure medications when you return home. All discharge instructions reviewed with patient and/or family. Voiced understanding. Scripts Doxycycline Hyclate (Doxycycline Hyclate) 100 Mg Tablet. 100 MG PO BID, #20 TAB Prov: BRITANY BOWLES MD 11/13/16 BRITANY BOWLES MD Nov 13, 2016 05:21
[2016-11-13 05:36] VITALS: BP 189/76
--- NOTE | 2016-11-13 07:30 | Diagnostic Imaging Report ---
INDICATION: Shortness of air COMPARISON: October 31, 2016 TECHNIQUE: Two radiographs of the chest dated November 13, 2016 FINDINGS: Surgical clips are again identified overlying the left upper chest. The cardiac silhouette is within normal limits. No significant pulmonary vascular congestion. The left lung is clear of focal pulmonary opacity. Minimal right basilar opacities are present, slightly increased from the prior examination. The right upper lung appears clear. No significant pleural effusion. No pneumothorax. Multiple chronic right-sided rib fractures again noted. Postsurgical changes within the lumbar spine. Scattered osseous degenerative changes without new acute osseous abnormality. IMPRESSION: Minimal right basilar atelectasis and/or pneumonitis. Otherwise, similar examination, including postsurgical changes as above. Dictated by: Dictated on workstation # [id number]
--- OUTSIDE RECORDS SUMMARY | 2016-12-06 11:40 | XMS REPORT | Continuity of Care Document ---
Author Author [facility] Organization [facility] Address Unknown Phone Unavailable Care Team Providers Care Studio Coordinator Name Role Phone Self, Roque PCP [phone] Source Comments Some departments are not documenting in the electronic medical record. 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) 08/09/2012 Overview: Had Eylea x 1-2 doses [...] Taken Blood Pressure 107/46 08/13/2013 1:57 PM PLATING FOREM[employer] Pulse 76 08/13/2013 1:57 PM [employer]ATING [employer] Temperature 36.6 C (97.9 F) 04/10/2013 1:15 PM CDT Respiratory Rate - - Height 1.524 m (5') 06/06/2013 12:50 PM CDT Weight 90.357 kg (199 lb 3.2 oz) 08/13/2013 1:57 PM [employer]ATING [employer] Body Mass Index 38.9 08/13/2013 1:57 PM [employer]ATING [employer] Oxygen Saturation 98% 04/10/2013 1:15 PM CDT Plan of Care Health Maintenance Due Date Last Done Comments Physical (Comprehensive) 1944 Exam Pertussis Vaccine 1948 Tetanus Vaccine 1954 Foot Exam 1955 Hba1c 1955 Microalbumin 1955 Shingles Vaccine 1997 Osteoporosis Screening 2002 Prevnar/Pneumovax (#1) 2002 Dilated Eye Exam 05/02/2014 05/02/2013, 04/02/2013, 02/28/2013 Additional history exists Influenza Vaccine 04/14/2017 Results from Last 3 Months Not on file
--- OUTSIDE RECORDS SUMMARY | 2016-12-06 11:41 | XMS REPORT | Continuity of Care Document ---
Author Author [facility] Address Unknown Phone Unavailable Allergies Active Description Code Type Severity Reaction Onset Reported/Identified Relationship to Patient Clinical Status Yes APAP/CODEINE APAP/CODEINE Unknown N/A 06/23/2014 Yes MELOLAZONE MELOLAZONE Unknown N/A 06/23/2014 Yes NITROFURATOIN NITROFURATOIN Unknown N/A 06/23/2014 Yes SUFAMETHOXAZOLE SUFAMETHOXAZOLE Unknown N/A 06/23/2014 Yes benzonatate [id number] Drug Allergy Unknown N/A 10/24/2016 Yes gabapentin [id number] Drug Allergy Unknown N/A 10/24/2016 Yes lansoprazole [id number] Drug Allergy Unknown N/A 10/24/2016 Yes levofloxacin [id number] Drug Allergy Unknown N/A 10/24/2016 Yes methenamine [id number] Drug Allergy Unknown N/A 10/24/2016 Yes naproxen [id number] Drug Allergy Unknown N/A 10/24/2016 Yes nitrofurantoin [id number] Drug Allergy Unknown N/A 10/24/2016 Yes Nitrofurantoin Macrocrystal [id number] Drug Allergy Unknown N/A 10/24/2016 Yes pioglitazone HCl [id number] Drug Allergy Unknown N/A 10/24/2016 Yes prednisone [id number] Drug Allergy Unknown N/A 10/24/2016 Yes promethazine [id number] Drug Allergy Unknown N/A 10/24/2016 Yes tolterodine tartrate [id number] Drug Allergy Unknown N/A 10/24/2016 Yes valdecoxib [id number] Drug Allergy Unknown N/A 10/24/2016 Yes zolpidem tartrate [id number] Drug Allergy Unknown N/A 10/24/2016 Medications Problems Date Dx Coded Attending Type Code Diagnosis Diagnosed By 04/22/2014 YOUSUF GARCIA DO V74.1 TB SCREENING 04/22/2014 YOUSUF GARCIA DO V74.1 TB SCREENING 05/29/2014 YOUSUF GARCIA DO K 354.0 CARPAL TUNNEL SYNDROME 05/29/2014 YOUSUF GARCIA DO K 427.31 ATRIAL FIBRILLATION 05/29/2014 YOUSUF GARCIA DO K 585.9 CHRONIC KIDNEY DISEASE UNSPECIFIED 06/23/2014 ALYSA JACOBS DO Ot 562.11 DIVERTICULITIS COLON (W/O MENT OF HEMORR 06/23/2014 ALYSA JACOBS DO Ot 578.1 BLOOD IN STOOL 06/23/2014 ALYSA JACOBS DO Ot 585.6 END STAGE RENAL DISEASE 06/23/2014 ALYSA JACOBS DO Ot V45.11 RENAL DIALYSIS STATUS 11/01/2015 YUNI CARRASCO MD Ot E11.9 TYPE 2 DIABETES MELLITUS WITHOUT COMPLIC 11/01/2015 YUNI CARRASCO MD Ot E78.0 PURE HYPERCHOLESTEROLEMIA 11/01/2015 YUNI CARRASCO MD Ot I12.0 HYP CHR KIDNEY DISEASE W STAGE 5 CHR KID 11/01/2015 YUNI CARRASCO MD Ot J81.1 CHRONIC PULMONARY EDEMA 11/01/2015 YUNI CARRASCO MD Ot L03.113 CELLULITIS OF RIGHT UPPER LIMB 11/01/2015 YUNI CARRASCO MD Ot N18.6 END STAGE RENAL DISEASE 11/01/2015 YUNI CARRASCO MD Ot Z99.2 DEPENDENCE ON RENAL DIALYSIS 11/07/2015 YUNI CARRASCO MD Ot E11.9 11/07/2015 YUNI CARRASCO MD Ot E78.0 11/07/2015 YUNI CARRASCO MD Ot I12.0 11/07/2015 YUNI CARRASCO MD Ot J81.1 11/07/2015 YUNI CARRASCO MD Ot L03.113 11/07/2015 YUNI CARRASCO MD Ot N18.6 11/07/2015 YUNI CARRASCO MD Ot Z99.2 09/15/2016 ANGEL VAZQUEZ MD Ot 553.20 VENTRAL HERNIA NOS 09/15/2016 ANGEL VAZQUEZ MD Ot 562.10 DIVERTICULOSIS COLON (W/O MENT OF HEMORR 09/15/2016 ANGEL VAZQUEZ MD Ot 577.1 CHRONIC PANCREATITIS 09/15/2016 ANGEL VAZQUEZ MD Ot 592.0 CALCULUS OF KIDNEY 10/06/2016 [place] SEE Langston Ot M25.512 PAIN IN LEFT SHOULDER 10/24/2016 [place] DO SEE Langston Ot M25.512 PAIN IN LEFT SHOULDER 10/24/2016 AMY DICKEY DO Ot E11.9 TYPE 2 DIABETES MELLITUS WITHOUT COMPLIC 10/24/2016 AMY DICKEY DO Ot I12.0 HYP CHR KIDNEY DISEASE W STAGE 5 CHR KID 10/24/2016 AMY DICKEY DO Ot I51.7 CARDIOMEGALY 10/24/2016 AMY DICKEY DO Ot N18.6 END STAGE RENAL DISEASE 10/24/2016 AMY DICKEY DO Ot R55 SYNCOPE AND COLLAPSE 10/24/2016 AMY DICKEY DO, Ot Z79.84 [employer] (CURRENT) USE OF ORAL HYPOGLYC 10/24/2016 AMY DICKEY DO Ot Z79.899 OTHER [facility] (CURRENT) DRUG THERAPY 10/24/2016 AMY DICKEY DO Ot Z99.2 DEPENDENCE ON RENAL DIALYSIS 10/25/2016 AMY DICKEY DO Ot E11.9 TYPE 2 DIABETES MELLITUS WITHOUT COMPLIC 10/25/2016 AMY DICKEY DO Ot I12.0 HYP CHR KIDNEY DISEASE W STAGE 5 CHR KID 10/25/2016 AMY DICKEY DO Ot I51.7 CARDIOMEGALY 10/25/2016 AMY DICKEY DO Ot N18.6 END STAGE RENAL DISEASE 10/25/2016 AMY DICKEY DO Ot R55 SYNCOPE AND COLLAPSE 10/25/2016 AMY DICKEY DO Ot Z79.84 [employer] (CURRENT) USE OF ORAL HYPOGLYC 10/25/2016 AMY DICKEY DO Ot Z79.899 OTHER NURSING HOME (CURRENT) DRUG THERAPY 10/25/2016 AMY DICKEY DO Ot Z99.2 DEPENDENCE ON RENAL DIALYSIS 10/28/2016 KATE LOPEZ, ANDREW Robb Ot E21.3 HYPERPARATHYROIDISM, UNSPECIFIED 10/28/2016 ANDREW LOVE MD Ot E78.5 HYPERLIPIDEMIA, UNSPECIFIED 10/28/2016 ANDREW LOVE MD Ot I10 ESSENTIAL (PRIMARY) HYPERTENSION 10/28/2016 ANDREW LOVE MD Ot I48.91 UNSPECIFIED ATRIAL FIBRILLATION 10/28/2016 ANDREW LOVE MD Ot N39.0 URINARY TRACT INFECTION, SITE NOT SPECIF 10/28/2016 ANDREW LOVE MD, Ot Z72.0 TOBACCO USE 10/31/2016 ALYSA JACOBS DO Ot E11.9 TYPE 2 DIABETES MELLITUS WITHOUT COMPLIC 10/31/2016 ALYSA JACOBS DO Ot I10 ESSENTIAL (PRIMARY) HYPERTENSION 10/31/2016 ALYSA JACOBS DO Ot M16.11 UNILATERAL PRIMARY OSTEOARTHRITIS, RIGHT 10/31/2016 ALYSA JACOBS DO Ot M47.812 SPONDYLOSIS W/O MYELOPATHY OR RADICULOPA 10/31/2016 ALYSA JACOBS DO Ot S00.93XA CONTUSION OF UNSPECIFIED PART OF HEAD, I 10/31/2016 ALYSA JACOBS DO Ot S09.90XA UNSPECIFIED INJURY OF HEAD, INITIAL ENCO 10/31/2016 ALYSA JACOBS DO Ot S16.1XXA STRAIN OF MUSCLE, FASCIA AND TENDON AT N 10/31/2016 ALYSA JACOBS DO Ot S70.01XA CONTUSION OF RIGHT HIP, INITIAL ENCOUNTE 10/31/2016 ALYSA JACOBS DO Ot W18.2XXA FALL IN (INTO) SHOWER OR EMPTY BATHTUB, 10/31/2016 ALYSA JACOBS DO Ot Y93.E1 ACTIVITY, PERSONAL BATHING AND SHOWERING 10/31/2016 ALYSA JACOBS DO Ot Y99.8 OTHER EXTERNAL CAUSE STATUS 10/31/2016 ALYSA JACOBS DO Ot Z79.84 [facility] (CURRENT) USE OF ORAL HYPOGLYC 10/31/2016 ALYSA JACOBS DO Ot Z79.899 OTHER NURSING HOME (CURRENT) DRUG THERAPY 10/31/2016 ANDREW LOVE MD Ot E21.3 HYPERPARATHYROIDISM, UNSPECIFIED 10/31/2016 ANDREW LOVE MD Ot E78.5 HYPERLIPIDEMIA, UNSPECIFIED 10/31/2016 ANDREW LOVE MD Ot I10 ESSENTIAL (PRIMARY) HYPERTENSION 10/31/2016 ANDREW LOVE MD Ot I48.91 UNSPECIFIED ATRIAL FIBRILLATION 10/31/2016 ANDREW LOVE MD Ot N39.0 URINARY TRACT INFECTION, SITE NOT SPECIF 10/31/2016 ANDREW LOVE MD Ot Z72.0 TOBACCO USE 10/31/2016 ANDREW LOVE MD Ot E21.3 HYPERPARATHYROIDISM, UNSPECIFIED 10/31/2016 ANDREW LOVE MD Ot E78.5 HYPERLIPIDEMIA, UNSPECIFIED 10/31/2016 ANDREW LOVE MD Ot I10 ESSENTIAL (PRIMARY) HYPERTENSION 10/31/2016 ANDREW LOVE MD Ot I48.91 UNSPECIFIED ATRIAL FIBRILLATION 10/31/2016 ANDREW LOVE MD Ot N39.0 URINARY TRACT INFECTION, SITE NOT SPECIF 10/31/2016 ANDREW LOVE MD Ot Z72.0 TOBACCO USE 11/16/2016 SEE CHRISTINA DO Ot M48.02 SPINAL STENOSIS, CERVICAL REGION 11/16/2016 SEE CHRISTINA DO Ot Z01.818 ENCOUNTER FOR OTHER PREPROCEDURAL EXAMIN 11/16/2016 SEE CHRISTINA DO Ot Z11.2 ENCOUNTER FOR SCREENING FOR OTHER BACTER 11/16/2016 SEE CHRISTINA DO Ot Z22.322 CARRIER OR SUSPECTED CARRIER OF METHICIL 11/17/2016 ANDREW LOVE MD Ot E21.3 HYPERPARATHYROIDISM, UNSPECIFIED 11/17/2016 ANDREW LOVE MD Ot E78.5 HYPERLIPIDEMIA, UNSPECIFIED 11/17/2016 ANDREW LOVE MD Ot I10 ESSENTIAL (PRIMARY) HYPERTENSION 11/17/2016 ANDREW LOVE MD, Ot I48.91 UNSPECIFIED ATRIAL FIBRILLATION 11/17/2016 ANDREW LOVE MD Ot N39.0 URINARY TRACT INFECTION, SITE NOT SPECIF 11/17/2016 ANDREW LOVE MD Ot Z72.0 TOBACCO USE 11/23/2016 CHRIS GARCIA MD Ot E11.9 TYPE 2 DIABETES MELLITUS WITHOUT COMPLIC 11/23/2016 CHRIS GARCIA MD Ot I12.0 HYP CHR KIDNEY DISEASE W STAGE 5 CHR KID 11/23/2016 CHRIS GARCIA MD Ot I48.2 CHRONIC ATRIAL FIBRILLATION 11/23/2016 CHRIS GARCIA MD, Ot K57.30 DVRTCLOS OF LG INT W/O PERFORATION OR AB 11/23/2016 CHRIS GARCIA MD Ot N18.6 END STAGE RENAL DISEASE 11/23/2016 CHRIS GARCIA MD Ot R07.9 CHEST PAIN, UNSPECIFIED 11/23/2016 CHRIS GARCIA MD Ot Z79.01 [facility] (CURRENT) USE OF ANTICOAGULANT 11/23/2016 CHRIS GARCIA MD Ot Z79.899 OTHER NURSING HOME (CURRENT) DRUG THERAPY 11/23/2016 CHRIS GARCIA MD, Ot 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 11/23/2016 CHRIS GARCIA MD, Ot Z87.891 PERSONAL HISTORY OF NICOTINE DEPENDENCE 11/23/2016 CHRIS GARCIA MD, Ot Z90.11 ACQUIRED ABSENCE OF RIGHT BREAST AND NIP 11/23/2016 CHRIS GARCIA MD, Ot Z99.2 DEPENDENCE ON RENAL DIALYSIS Procedures Code [place] [address] TB TEST INTRADERMAL 04/22/2014 Results Test Result Range Capillary blood glucose measurement by glucometer (mass/volume) - 10/24/16 14: 29 Capillary blood glucose measurement by glucometer (mass/volume) 125 mg/dL 70-110 Complete blood count (CBC) with automated white blood cell (WBC) differential - 10/24/16 14:37 Blood leukocytes automated count (number/volume) 15.7 10*3/ uL 4.3-11.0 Blood erythrocytes automated count (number/volume) 3.60 10*6 /uL 4.35-5.85 Venous blood hemoglobin measurement (mass/volume) 11.1 g/dL 11.5-16.0 Blood hematocrit (volume fraction) 34 % 35-52 Automated erythrocyte mean corpuscular volume 93 [foz_us] 80-99 Automated erythrocyte mean corpuscular hemoglobin (mass per erythrocyte) 31 pg 25-34 Automated erythrocyte mean corpuscular hemoglobin concentration measurement ( mass/volume) 33 g/dL 32-36 Automated erythrocyte distribution width ratio 16.0 % 10.0-14.5 Automated blood platelet count (count/volume) 402 10*3/uL 130-400 Automated blood platelet mean volume measurement 11.6 [foz_ us] 7.4-10.4 Automated blood neutrophils/100 leukocytes 66 % 42-75 Automated blood lymphocytes/100 leukocytes 21 % 12-44 Blood monocytes/100 leukocytes 11 % 0-12 Automated blood eosinophils/100 leukocytes 1 % 0-10 Automated blood basophils/100 leukocytes 1 % 0-10 Blood neutrophils automated count (number/volume) 10.4 10*3 1.8-7.8 Blood lymphocytes automated count (number/volume) 3.3 10*3 1.0-4.0 Blood monocytes automated count (number/volume) 1.8 10*3 0.0-1.0 Automated eosinophil count 0.2 10*3/uL 0.0-0.3 Automated blood basophil count (count/volume) 0.1 10*3/uL 0.0-0.1 Comprehensive metabolic panel - 10/24/16 14:37 Serum or plasma sodium measurement (moles/volume) 140 mmol/ L 135-145 Serum or plasma potassium measurement (moles/volume) 3.9 mmol/L 3.6-5.0 Serum or plasma chloride measurement (moles/volume) 95 mmol/ L 98-107 Carbon dioxide 32 mmol/L 21-32 Serum or plasma anion gap determination (moles/volume) 13 mmol/L 5-14 Serum or plasma urea nitrogen measurement (mass/volume) 27 mg/dL 7-18 Serum or plasma creatinine measurement (mass/volume) 4.25 mg /dL 0.60-1.30 Serum or plasma urea nitrogen/creatinine mass ratio 6 NRG Serum or plasma creatinine measurement with calculation of estimated glomerular filtration rate 10 NRG Serum or plasma glucose measurement (mass/volume) 121 mg/dL 70-105 Serum or plasma calcium measurement (mass/volume) 9.9 mg/dL 8.5-10.1 Serum or plasma total bilirubin measurement (mass/volume) 0.3 mg/dL 0.1-1.0 Serum or plasma alkaline phosphatase measurement (enzymatic activity/volume) 76 U/L 40-136 Serum or plasma aspartate aminotransferase measurement (enzymatic activity/ volume) 18 U/L 5-34 Serum or plasma alanine aminotransferase measurement (enzymatic activity/volume ) 19 U/L 0-55 Serum or plasma protein measurement (mass/volume) 6.9 g/dL 6.4-8.2 Serum or plasma albumin measurement (mass/volume) 3.4 g/dL 3.2-4.5 PT panel in platelet poor plasma by coagulation assay - 10/24/16 14:37 Prothrombin time (PT) in platelet poor plasma by coagulation assay 16.3 s 12.2-14.7 INR in platelet poor plasma or blood by coagulation assay 1.3 0.8-1.4 Activated partial thromboplastin time (aPTT) in platelet poor plasma bycoagulation assay - 10/24/16 14:37 Activated partial thromboplastin time (aPTT) in platelet poor plasma bycoagulation assay 28 s 24-35 Fibrin D-dimer FEU measurement in platelet poor plasma (mass/volume) - 14:37 Fibrin D-dimer FEU measurement in platelet poor plasma (mass/volume) 0.43 ug/mL 0.00-0.49 Serum or plasma troponin i.cardiac measurement (mass/volume) - 10/24/16 14:37 Serum or plasma troponin i.cardiac measurement (mass/volume) < ng/mL <0.30 Blood manual differential performed detection - 10/24/16 14:37 Blood monocytes/100 leukocytes 10 % NRG Manual blood segmented neutrophils/100 leukocytes 62 % NRG Blood band neutrophils/100 leukocytes 0 % NRG Manual blood lymphocytes/100 leukocytes 25 % NRG Manual eosinophils/100 leukocytes in nose 2 % NRG Manual blood basophils/100 leukocytes 1 % NRG Blood erythrocyte morphology finding identification NORMAL NRG Complete blood count (CBC) with automated white blood cell (WBC) differential - 11/13/16 03:45 Blood leukocytes automated count (number/volume) 13.9 10*3/ uL 4.3-11.0 Blood erythrocytes automated count (number/volume) 3.53 10*6 /uL 4.35-5.85 Venous blood hemoglobin measurement (mass/volume) 10.8 g/dL 11.5-16.0 Blood hematocrit (volume fraction) 33 % 35-52 Automated erythrocyte mean corpuscular volume 95 [foz_us] 80-99 Automated erythrocyte mean corpuscular hemoglobin (mass per erythrocyte) 31 pg 25-34 Automated erythrocyte mean corpuscular hemoglobin concentration measurement ( mass/volume) 32 g/dL 32-36 Automated erythrocyte distribution width ratio 15.6 % 10.0-14.5 Automated blood platelet count (count/volume) 404 10*3/uL 130-400 Automated blood platelet mean volume measurement 11.4 [foz_ us] 7.4-10.4 Automated blood neutrophils/100 leukocytes 57 % 42-75 Automated blood lymphocytes/100 leukocytes 29 % 12-44 Blood monocytes/100 leukocytes 12 % 0-12 Automated blood eosinophils/100 leukocytes 2 % 0-10 Automated blood basophils/100 leukocytes 1 % 0-10 Blood neutrophils automated count (number/volume) 8.0 10*3 1.8-7.8 Blood lymphocytes automated count (number/volume) 4.0 10*3 1.0-4.0 Blood monocytes automated count (number/volume) 1.6 10*3 0.0-1.0 Automated eosinophil count 0.3 10*3/uL 0.0-0.3 Automated blood basophil count (count/volume) 0.1 10*3/uL 0.0-0.1 Whole blood basic metabolic panel - 11/13/16 03:45 Serum or plasma sodium measurement (moles/volume) 142 mmol/ L 135-145 Serum or plasma potassium measurement (moles/volume) 3.8 mmol/L 3.6-5.0 Serum or plasma chloride measurement (moles/volume) 94 mmol/ L 98-107 Carbon dioxide 34 mmol/L 21-32 Serum or plasma anion gap determination (moles/volume) 14 mmol/L 5-14 Serum or plasma urea nitrogen measurement (mass/volume) 33 mg/dL 7-18 Serum or plasma creatinine measurement (mass/volume) 5.41 mg /dL 0.60-1.30 Serum or plasma urea nitrogen/creatinine mass ratio 6 NRG Serum or plasma creatinine measurement with calculation of estimated glomerular filtration rate 8 NRG Serum or plasma glucose measurement (mass/volume) 126 mg/dL 70-105 Serum or plasma calcium measurement (mass/volume) 9.6 mg/dL 8.5-10.1 Serum or plasma troponin i.cardiac measurement (mass/volume) - 11/13/16 03:45 Serum or plasma troponin i.cardiac measurement (mass/volume) < ng/mL <0.30 Influenza virus A and B antigen detection - 11/13/16 04:36 FLU RESULT NEGATIVE FOR INFLUENZA A AND B ANTIGENS BY IA [facility] Methicillin resistant Staphylococcus aureus (MRSA) screening culture - 10:52 Methicillin resistant Staphylococcus aureus (MRSA) screening culture NEG [facility] Complete blood count (CBC) with automated white blood cell (WBC) differential - 11/21/16 06:15 Blood leukocytes automated count (number/volume) 15.2 10*3/ uL 4.3-11.0 Blood erythrocytes automated count (number/volume) 3.56 10*6 /uL 4.35-5.85 Venous blood hemoglobin measurement (mass/volume) 10.8 g/dL 11.5-16.0 Blood hematocrit (volume fraction) 33 % 35-52 Automated erythrocyte mean corpuscular volume 94 [foz_us] 80-99 Automated erythrocyte mean corpuscular hemoglobin (mass per erythrocyte) 30 pg 25-34 Automated erythrocyte mean corpuscular hemoglobin concentration measurement ( mass/volume) 32 g/dL 32-36 Automated erythrocyte distribution width ratio 15.8 % 10.0-14.5 Automated blood platelet count (count/volume) 416 10*3/uL 130-400 Automated blood platelet mean volume measurement 11.3 [foz_ us] 7.4-10.4 Automated blood neutrophils/100 leukocytes 54 % 42-75 Automated blood lymphocytes/100 leukocytes 34 % 12-44 Blood monocytes/100 leukocytes 10 % 0-12 Automated blood eosinophils/100 leukocytes 2 % 0-10 Automated blood basophils/100 leukocytes 1 % 0-10 Blood neutrophils automated count (number/volume) 8.2 10*3 1.8-7.8 Blood lymphocytes automated count (number/volume) 5.2 10*3 1.0-4.0 Blood monocytes automated count (number/volume) 1.5 10*3 0.0-1.0 Automated eosinophil count 0.3 10*3/uL 0.0-0.3 Automated blood basophil count (count/volume) 0.1 10*3/uL 0.0-0.1 PT panel in platelet poor plasma by coagulation assay - 11/21/16 06:15 Prothrombin time (PT) in platelet poor plasma by coagulation assay 42.1 s 12.2-14.7 INR in platelet poor plasma or blood by coagulation assay 4.4 0.8-1.4 Activated partial thromboplastin time (aPTT) in platelet poor plasma bycoagulation assay - 11/21/16 06:15 Activated partial thromboplastin time (aPTT) in platelet poor plasma bycoagulation assay 43 s 24-35 Comprehensive metabolic panel - 11/21/16 06:15 Serum or plasma sodium measurement (moles/volume) 142 mmol/ L 135-145 Serum or plasma potassium measurement (moles/volume) 4.5 mmol/L 3.6-5.0 Serum or plasma chloride measurement (moles/volume) 95 mmol/ L 98-107 Carbon dioxide 29 mmol/L 21-32 Serum or plasma anion gap determination (moles/volume) 18 mmol/L 5-14 Serum or plasma urea nitrogen measurement (mass/volume) 52 mg/dL 7-18 Serum or plasma creatinine measurement (mass/volume) 7.21 mg /dL 0.60-1.30 Serum or plasma urea nitrogen/creatinine mass ratio 7 NRG Serum or plasma creatinine measurement with calculation of estimated glomerular filtration rate 5 NRG Serum or plasma glucose measurement (mass/volume) 121 mg/dL 70-105 Serum or plasma calcium measurement (mass/volume) 9.5 mg/dL 8.5-10.1 Serum or plasma total bilirubin measurement (mass/volume) 0.7 mg/dL 0.1-1.0 Serum or plasma alkaline phosphatase measurement (enzymatic activity/volume) 260 U/L 40-136 Serum or plasma aspartate aminotransferase measurement (enzymatic activity/ volume) 102 U/L 5-34 Serum or plasma alanine aminotransferase measurement (enzymatic activity/volume ) 98 U/L 0-55 Serum or plasma protein measurement (mass/volume) 7.0 g/dL 6.4-8.2 Serum or plasma albumin measurement (mass/volume) 3.6 g/dL 3.2-4.5 Magnesium - 11/21/16 06:15 Magnesium 2.6 mg/dL 1.8-2.4 Serum or plasma troponin i.cardiac measurement (mass/volume) - 11/21/16 06:15 Serum or plasma troponin i.cardiac measurement (mass/volume) < ng/mL <0.30 Myoglobin, serum - 11/21/16 06:15 Myoglobin, serum 372.5 ng/mL 10.0-92.0 Serum or plasma amylase measurement (enzymatic activity/volume) - 11/21/16 06: 15 Serum or plasma amylase measurement (enzymatic activity/volume) 63 U/L 25-125 Lipase - 11/21/16 06:15 Lipase 52 U/L 8-78 Serum or plasma troponin i.cardiac measurement (mass/volume) - 11/21/16 08:15 Serum or plasma troponin i.cardiac measurement (mass/volume) < ng/mL <0.30 Myoglobin, serum - 11/21/16 08:15 Myoglobin, serum 337.0 ng/mL 10.0-92.0 PT panel in platelet poor plasma by coagulation assay - 11/28/16 11:24 Prothrombin time (PT) in platelet poor plasma by coagulation assay 18.5 s 12.2-14.7 INR in platelet poor plasma or blood by coagulation assay 1.6 0.8-1.4 Comprehensive metabolic panel - 11/28/16 11:24 Serum or plasma sodium measurement (moles/volume) 138 mmol/ L 135-145 Serum or plasma potassium measurement (moles/volume) 3.3 mmol/L 3.6-5.0 Serum or plasma chloride measurement (moles/volume) 94 mmol/ L 98-107 Carbon dioxide 34 mmol/L 21-32 Serum or plasma anion gap determination (moles/volume) 10 mmol/L 5-14 Serum or plasma urea nitrogen measurement (mass/volume) 13 mg/dL 7-18 Serum or plasma creatinine measurement (mass/volume) 2.95 mg /dL 0.60-1.30 Serum or plasma urea nitrogen/creatinine mass ratio 4 NRG Serum or plasma creatinine measurement with calculation of estimated glomerular filtration rate 15 NRG Serum or plasma glucose measurement (mass/volume) 101 mg/dL 70-105 Serum or plasma calcium measurement (mass/volume) 8.7 mg/dL 8.5-10.1 Serum or plasma total bilirubin measurement (mass/volume) 0.5 mg/dL 0.1-1.0 Serum or plasma alkaline phosphatase measurement (enzymatic activity/volume) 180 U/L 40-136 Serum or plasma aspartate aminotransferase measurement (enzymatic activity/ volume) 17 U/L 5-34 Serum or plasma alanine aminotransferase measurement (enzymatic activity/volume ) 27 U/L 0-55 Serum or plasma protein measurement (mass/volume) 6.1 g/dL 6.4-8.2 Serum or plasma albumin measurement (mass/volume) 3.2 g/dL 3.2-4.5 Blood type T Indirect antibody screen panel - 11/28/16 11:24 ABO+Rh group OP [facility] Transfusion band number [id number] [facility] Blood group antibody screen NEGATIVE [facility] Complete blood count (CBC) with automated white blood cell (WBC) differential - 11/29/16 05:05 Blood leukocytes automated count (number/volume) 17.6 10*3/ uL 4.3-11.0 Blood erythrocytes automated count (number/volume) 3.29 10*6 /uL 4.35-5.85 Venous blood hemoglobin measurement (mass/volume) 9.9 g/dL 11.5-16.0 Blood hematocrit (volume fraction) 31 % 35-52 Automated erythrocyte mean corpuscular volume 95 [foz_us] 80-99 Automated erythrocyte mean corpuscular hemoglobin (mass per erythrocyte) 30 pg 25-34 Automated erythrocyte mean corpuscular hemoglobin concentration measurement ( mass/volume) 32 g/dL 32-36 Automated erythrocyte distribution width ratio 16.6 % 10.0-14.5 Automated blood platelet count (count/volume) 310 10*3/uL 130-400 Automated blood platelet mean volume measurement 12.4 [foz_ us] 7.4-10.4 Automated blood neutrophils/100 leukocytes 65 % 42-75 Automated blood lymphocytes/100 leukocytes 21 % 12-44 Blood monocytes/100 leukocytes 11 % 0-12 Automated blood eosinophils/100 leukocytes 3 % 0-10 Automated blood basophils/100 leukocytes 1 % 0-10 Blood neutrophils automated count (number/volume) 11.4 10*3 1.8-7.8 Blood lymphocytes automated count (number/volume) 3.7 10*3 1.0-4.0 Blood monocytes automated count (number/volume) 2.0 10*3 0.0-1.0 Automated eosinophil count 0.4 10*3/uL 0.0-0.3 Automated blood basophil count (count/volume) 0.1 10*3/uL 0.0-0.1 Blood manual differential performed detection - 11/29/16 05:05 Blood monocytes/100 leukocytes 6 % NRG Manual blood segmented neutrophils/100 leukocytes 72 % NRG Blood band neutrophils/100 leukocytes 0 % NRG Manual blood lymphocytes/100 leukocytes 18 % NRG Manual eosinophils/100 leukocytes in nose 2 % NRG Manual blood basophils/100 leukocytes 0 % NRG Manual blood lymphocytes variant/100 leukocytes 2 % NRG Blood anisocytosis detection by light microscopy SLIGHT NRG Blood poikilocytosis detection by light microscopy SLIGHT NRG Blood target cells detection by light microscopy SLIGHT NRG Comprehensive metabolic panel - 11/29/16 05:05 Serum or plasma sodium measurement (moles/volume) 137 mmol/ L 135-145 Serum or plasma potassium measurement (moles/volume) 4.6 mmol/L 3.6-5.0 Serum or plasma chloride measurement (moles/volume) 97 mmol/ L 98-107 Carbon dioxide 24 mmol/L 21-32 Serum or plasma anion gap determination (moles/volume) 16 mmol/L 5-14 Serum or plasma urea nitrogen measurement (mass/volume) 18 mg/dL 7-18 Serum or plasma creatinine measurement (mass/volume) 3.87 mg /dL 0.60-1.30 Serum or plasma urea nitrogen/creatinine mass ratio 5 NRG Serum or plasma creatinine measurement with calculation of estimated glomerular filtration rate 11 NRG Serum or plasma glucose measurement (mass/volume) 98 mg/dL 70-105 Serum or plasma calcium measurement (mass/volume) 8.7 mg/dL 8.5-10.1 Serum or plasma total bilirubin measurement (mass/volume) 1.0 mg/dL 0.1-1.0 Serum or plasma alkaline phosphatase measurement (enzymatic activity/volume) 475 U/L 40-136 Serum or plasma aspartate aminotransferase measurement (enzymatic activity/ volume) 298 U/L 5-34 Serum or plasma alanine aminotransferase measurement (enzymatic activity/volume ) 133 U/L 0-55 Serum or plasma protein measurement (mass/volume) 6.0 g/dL 6.4-8.2 Serum or plasma albumin measurement (mass/volume) 3.0 g/dL 3.2-4.5 PT panel in platelet poor plasma by coagulation assay - 11/30/16 09:15 Prothrombin time (PT) in platelet poor plasma by coagulation assay 19.5 s 12.2-14.7 INR in platelet poor plasma or blood by coagulation assay 1.7 0.8-1.4 Complete blood count (CBC) with automated white blood cell (WBC) differential - 12/01/16 08:50 Blood leukocytes automated count (number/volume) 17.3 10*3/ uL 4.3-11.0 Blood erythrocytes automated count (number/volume) 3.30 10*6 /uL 4.35-5.85 Venous blood hemoglobin measurement (mass/volume) 9.8 g/dL 11.5-16.0 Blood hematocrit (volume fraction) 31 % 35-52 Automated erythrocyte mean corpuscular volume 95 [foz_us] 80-99 Automated erythrocyte mean corpuscular hemoglobin (mass per erythrocyte) 30 pg 25-34 Automated erythrocyte mean corpuscular hemoglobin concentration measurement ( mass/volume) 31 g/dL 32-36 Automated erythrocyte distribution width ratio 16.7 % 10.0-14.5 Automated blood platelet count (count/volume) 392 10*3/uL 130-400 Automated blood platelet mean volume measurement 11.9 [foz_ us] 7.4-10.4 Automated blood neutrophils/100 leukocytes 61 % 42-75 Automated blood lymphocytes/100 leukocytes 22 % 12-44 Blood monocytes/100 leukocytes 15 % 0-12 Automated blood eosinophils/100 leukocytes 2 % 0-10 Automated blood basophils/100 leukocytes 0 % 0-10 Blood neutrophils automated count (number/volume) 10.6 10*3 1.8-7.8 Blood lymphocytes automated count (number/volume) 3.9 10*3 1.0-4.0 Blood monocytes automated count (number/volume) 2.5 10*3 0.0-1.0 Automated eosinophil count 0.3 10*3/uL 0.0-0.3 Automated blood basophil count (count/volume) 0.0 10*3/uL 0.0-0.1 PT panel in platelet poor plasma by coagulation assay - 12/01/16 08:50 Prothrombin time (PT) in platelet poor plasma by coagulation assay 20.0 s 12.2-14.7 INR in platelet poor plasma or blood by coagulation assay 1.7 0.8-1.4 Comprehensive metabolic panel - 12/01/16 08:50 Serum or plasma sodium measurement (moles/volume) 137 mmol/ L 135-145 Serum or plasma potassium measurement (moles/volume) 3.4 mmol/L 3.6-5.0 Serum or plasma chloride measurement (moles/volume) 92 mmol/ L 98-107 Carbon dioxide 33 mmol/L 21-32 Serum or plasma anion gap determination (moles/volume) 12 mmol/L 5-14 Serum or plasma urea nitrogen measurement (mass/volume) 26 mg/dL 7-18 Serum or plasma creatinine measurement (mass/volume) 3.65 mg /dL 0.60-1.30 Serum or plasma urea nitrogen/creatinine mass ratio 7 NRG Serum or plasma creatinine measurement with calculation of estimated glomerular filtration rate 12 NRG Serum or plasma glucose measurement (mass/volume) 133 mg/dL 70-105 Serum or plasma calcium measurement (mass/volume) 9.3 mg/dL 8.5-10.1 Serum or plasma total bilirubin measurement (mass/volume) 0.5 mg/dL 0.1-1.0 Serum or plasma alkaline phosphatase measurement (enzymatic activity/volume) 453 U/L 40-136 Serum or plasma aspartate aminotransferase measurement (enzymatic activity/ volume) 67 U/L 5-34 Serum or plasma alanine aminotransferase measurement (enzymatic activity/volume ) < U/L 0-55 Serum or plasma protein measurement (mass/volume) 6.5 g/dL 6.4-8.2 Serum or plasma albumin measurement (mass/volume) 3.4 g/dL 3.2-4.5 Magnesium - 12/01/16 08:50 Magnesium 2.0 mg/dL 1.8-2.4 Automated blood complete blood count (hemogram) panel - 12/02/16 08:40 Blood leukocytes automated count (number/volume) 17.0 10*3/ uL 4.3-11.0 Blood erythrocytes automated count (number/volume) 3.29 10*6 /uL 4.35-5.85 Venous blood hemoglobin measurement (mass/volume) 10.0 g/dL 11.5-16.0 Blood hematocrit (volume fraction) 32 % 35-52 Automated erythrocyte mean corpuscular volume 96 [foz_us] 80-99 Automated erythrocyte mean corpuscular hemoglobin (mass per erythrocyte) 30 pg 25-34 Automated erythrocyte mean corpuscular hemoglobin concentration measurement ( mass/volume) 32 g/dL 32-36 Automated erythrocyte distribution width ratio 16.5 % 10.0-14.5 Automated blood platelet count (count/volume) 414 10*3/uL 130-400 Automated blood platelet mean volume measurement 11.4 [foz_ us] 7.4-10.4 PT panel in platelet poor plasma by coagulation assay - 12/02/16 08:40 Prothrombin time (PT) in platelet poor plasma by coagulation assay 26.4 s 12.2-14.7 INR in platelet poor plasma or blood by coagulation assay 2.5 0.8-1.4 Comprehensive metabolic panel - 12/02/16 08:40 Serum or plasma sodium measurement (moles/volume) 136 mmol/ L 135-145 Serum or plasma potassium measurement (moles/volume) 3.7 mmol/L 3.6-5.0 Serum or plasma chloride measurement (moles/volume) 92 mmol/ L 98-107 Carbon dioxide 29 mmol/L 21-32 Serum or plasma anion gap determination (moles/volume) 15 mmol/L 5-14 Serum or plasma urea nitrogen measurement (mass/volume) 33 mg/dL 7-18 Serum or plasma creatinine measurement (mass/volume) 4.85 mg /dL 0.60-1.30 Serum or plasma urea nitrogen/creatinine mass ratio 7 NRG Serum or plasma creatinine measurement with calculation of estimated glomerular filtration rate 9 NRG Serum or plasma glucose measurement (mass/volume) 139 mg/dL 70-105 Serum or plasma calcium measurement (mass/volume) 9.2 mg/dL 8.5-10.1 Serum or plasma total bilirubin measurement (mass/volume) 0.4 mg/dL 0.1-1.0 Serum or plasma alkaline phosphatase measurement (enzymatic activity/volume) 413 U/L 40-136 Serum or plasma aspartate aminotransferase measurement (enzymatic activity/ volume) 27 U/L 5-34 Serum or plasma alanine aminotransferase measurement (enzymatic activity/volume ) < U/L 0-55 Serum or plasma protein measurement (mass/volume) 6.5 g/dL 6.4-8.2 Serum or plasma albumin measurement (mass/volume) 3.3 g/dL 3.2-4.5 Automated blood complete blood count (hemogram) panel - 12/03/16 05:30 Blood leukocytes automated count (number/volume) 11.2 10*3/ uL 4.3-11.0 Blood erythrocytes automated count (number/volume) 2.97 10*6 /uL 4.35-5.85 Venous blood hemoglobin measurement (mass/volume) 9.0 g/dL 11.5-16.0 Blood hematocrit (volume fraction) 29 % 35-52 Automated erythrocyte mean corpuscular volume 97 [foz_us] 80-99 Automated erythrocyte mean corpuscular hemoglobin (mass per erythrocyte) 30 pg 25-34 Automated erythrocyte mean corpuscular hemoglobin concentration measurement ( mass/volume) 31 g/dL 32-36 Automated erythrocyte distribution width ratio 16.4 % 10.0-14.5 Automated blood platelet count (count/volume) 373 10*3/uL 130-400 Automated blood platelet mean volume measurement 11.6 [foz_ us] 7.4-10.4 Whole blood basic metabolic panel - 12/03/16 05:30 Serum or plasma sodium measurement (moles/volume) 140 mmol/ L 135-145 Serum or plasma potassium measurement (moles/volume) 3.4 mmol/L 3.6-5.0 Serum or plasma chloride measurement (moles/volume) 96 mmol/ L 98-107 Carbon dioxide 31 mmol/L 21-32 Serum or plasma anion gap determination (moles/volume) 13 mmol/L 5-14 Serum or plasma urea nitrogen measurement (mass/volume) 15 mg/dL 7-18 Serum or plasma creatinine measurement (mass/volume) 3.14 mg /dL 0.60-1.30 Serum or plasma urea nitrogen/creatinine mass ratio 5 NRG Serum or plasma creatinine measurement with calculation of estimated glomerular filtration rate 14 NRG Serum or plasma glucose measurement (mass/volume) 105 mg/dL 70-105 Serum or plasma calcium measurement (mass/volume) 8.3 mg/dL 8.5-10.1 PT panel in platelet poor plasma by coagulation assay - 12/05/16 05:27 Prothrombin time (PT) in platelet poor plasma by coagulation assay 45.0 s 12.2-14.7 INR in platelet poor plasma or blood by coagulation assay 4.8 0.8-1.4 Automated blood complete blood count (hemogram) panel - 12/06/16 06:00 Blood leukocytes automated count (number/volume) 14.5 10*3/ uL 4.3-11.0 Blood erythrocytes automated count (number/volume) 3.23 10*6 /uL 4.35-5.85 Venous blood hemoglobin measurement (mass/volume) 9.7 g/dL 11.5-16.0 Blood hematocrit (volume fraction) 31 % 35-52 Automated erythrocyte mean corpuscular volume 96 [foz_us] 80-99 Automated erythrocyte mean corpuscular hemoglobin (mass per erythrocyte) 30 pg 25-34 Automated erythrocyte mean corpuscular hemoglobin concentration measurement ( mass/volume) 31 g/dL 32-36 Automated erythrocyte distribution width ratio 16.6 % 10.0-14.5 Automated blood platelet count (count/volume) 424 10*3/uL 130-400 Automated blood platelet mean volume measurement 10.8 [foz_ us] 7.4-10.4 PT panel in platelet poor plasma by coagulation assay - 12/06/16 06:00 Prothrombin time (PT) in platelet poor plasma by coagulation assay 35.1 s 12.2-14.7 INR in platelet poor plasma or blood by coagulation assay 3.5 0.8-1.4 Whole blood basic metabolic panel - 12/06/16 06:00 Serum or plasma sodium measurement (moles/volume) 137 mmol/ L 135-145 Serum or plasma potassium measurement (moles/volume) 3.3 mmol/L 3.6-5.0 Serum or plasma chloride measurement (moles/volume) 95 mmol/ L 98-107 Carbon dioxide 30 mmol/L 21-32 Serum or plasma anion gap determination (moles/volume) 12 mmol/L 5-14 Serum or plasma urea nitrogen measurement (mass/volume) 13 mg/dL 7-18 Serum or plasma creatinine measurement (mass/volume) 3.53 mg /dL 0.60-1.30 Serum or plasma urea nitrogen/creatinine mass ratio 4 NRG Serum or plasma creatinine measurement with calculation of estimated glomerular filtration rate 12 NRG Serum or plasma glucose measurement (mass/volume) 103 mg/dL 70-105 Serum or plasma calcium measurement (mass/volume) 8.7 mg/dL 8.5-10.1 Encounters ACCT No. Visit Date/Time Discharge Status Pt. Type Provider Facility Loc./Unit Complaint [id number] 05/29/2014 15:19:00 05/29/2014 23: 59:59 [facility] Outpatient YOUSUF GARCIA DO [id number] 04/22/2014 09:55:00 04/22/2014 23: 59:59 [facility] Outpatient YOUSUF GARCIA DO
--- OUTSIDE RECORDS SUMMARY | 2016-12-06 11:41 | XMS REPORT ---
Author Author AMARI JIANG [facility] e[employer] Address Unknown Phone Unavailable Care Team Providers Care Hydraulic Elevator Constructor Name Role Phone AMARI JIANG CP Unavailable Allergies No Known Allergies Problems Problem Type Condition Code Onset Dates Condition Status Problem Carpal tunnel syndrome 354.0 Active Problem Atrial fibrillation 427.31 Active Problem Screening examination for pulmonary tuberculosis V74.1 Active Problem Chronic kidney disease, unspecified 585.9 Active Medications Medication Code System Code Instructions Start Date End Date Status Dosage GlipiZIDE XL [facility] [address]-53 2.5 MG Orally Once a day 1 tablet Results No Known Results Summary Purpose eClinicalWorks Submission
[2016-12-09] MEDS ORDERED: HYDR-3816 PO (10:44)
[2016-12-09] MEDS ORDERED: BISA5TAB8 PO (10:44)
== END 2016-11-13 05:37 | disposition home or self-care (01) ==
LOC: EDUNIT# 03:15 → ER 03:16
DX: J18.9 Pneumonia, unspecified organism (principal); R07.9 Chest pain, unspecified; E11.9 Type 2 diabetes mellitus without complications; I12.0 Hypertensive chronic kidney disease with stage 5 chronic kidney disease or end stage renal disease; N18.6 End stage renal disease; Z99.2 Dependence on renal dialysis; I48.2 Chronic atrial fibrillation; Z79.01 Long term (current) use of anticoagulants; Z79.84 Long term (current) use of oral hypoglycemic drugs; Z79.4 Long term (current) use of insulin; Z79.899 Other long term (current) drug therapy
CPT/HCPCS: 36415; 71020; 80048; 84484; 85025; 87804; 93005

== ENCOUNTER 2016-11-15 09:54 | Outpatient (CLI) | payer MEDICARE, MEDICAID ==
[~2016-11-15] VITALS: Ht 165.1 cm; Wt 78.0 kg
[~2016-11-15 09:54] MED LIST changes: +ANAS1TAB7 PO; +ATOR10TA66 PO; +DOXY-227 PO; +METO-272 PO; +WARF-48 PO
[2016-11-15 10:24] VITALS: BP 176/77
[2016-11-15] MEDS ORDERED: BENZ-13 PO (11:23)
[2016-11-15] MEDS ORDERED: POLY119P5 PO (11:23)
[2016-11-15] MEDS ORDERED: ONDA4TAB8 PO (11:23)
[2016-11-15] MEDS ORDERED: HYDR-3816 PO (13:31)
[2016-11-15] MEDS ORDERED: FAMO20TA3 PO (13:31)
[2016-12-09] MEDS ORDERED: HYDR-3816 PO (10:44)
[2016-12-09] MEDS ORDERED: BISA5TAB8 PO (10:44)
== END 2016-11-15 10:55 | disposition home or self-care (01) ==
LOC: PREOP 09:54
PROVIDERS: ATTEND Orthopaedic Surgery
DX: Z01.818 Encounter for other preprocedural examination (principal); Z11.2 Encounter for screening for other bacterial diseases; M48.02 Spinal stenosis, cervical region; Z22.322 Carrier or suspected carrier of Methicillin resistant Staphylococcus aureus
CPT/HCPCS: 87081

== ENCOUNTER 2016-11-21 06:07 | Emergency (ER) | payer MEDICARE, MEDICAID ==
[~2016-11-21] VITALS: Ht 162.6 cm; Wt 77.1 kg
[~2016-11-21 06:07] MED LIST changes: +BENZ-13 PO; +FAMO20TA3 PO; +HYDR-3816 PO; +ONDA4TAB8 PO; +POLY119P5 PO
[2016-11-21] MEDS ORDERED: ASPIRIN 81 MG CHEW (CHILDREN'S ASA) ONE (06:20)
[2016-11-21] MEDS ORDERED: hydrALAZINE (APESOLINE) 20 MG/ML VIAL ONE (06:20)
[2016-11-21 06:27] LABS: BASOPHILS # (AUTO) 0.1 10^3/uL (0.0-0.1); BASOPHILS % (AUTO) 1 % (0-10); EOSINOPHILS # (AUTO) 0.3 10^3/uL (0.0-0.3); EOSINOPHILS % (AUTO) 2 % (0-10); LYMPHOCYTES # (AUTO) 5.2 X 10^3 (1.0-4.0); LYMPHOCYTES % (AUTO) 34 % (12-44); MEAN CORPUSCULAR HEMOGLOBIN 30 PG (25-34); MEAN CORPUSCULAR HGB CONC 32 G/DL (32-36); MEAN CORPUSCULAR VOLUME 94 FL (80-99); MEAN PLATELET VOLUME 11.3 FL (7.4-10.4); MONOCYTES # (AUTO) 1.5 X 10^3 (0.0-1.0); MONOCYTES % (AUTO) 10 % (0-12); NEUTROPHILS # (AUTO) 8.2 X 10^3 (1.8-7.8); NEUTROPHILS % (AUTO) 54 % (42-75); PLATELET COUNT 416 10^3/uL (130-400); RED BLOOD COUNT 3.56 10^6/uL (4.35-5.85); RED CELL DISTRIBUTION WIDTH 15.8 % (10.0-14.5); WHITE BLOOD COUNT 15.2 10^3/uL (4.3-11.0)
[2016-11-21] MEDS ORDERED: hydrALAZINE (APESOLINE) 20 MG/ML VIAL IV ONE (06:30)
[2016-11-21] MEDS ORDERED: ASPIRIN 81 MG CHEW (CHILDREN'S ASA) PO ONE (06:30)
--- NOTE | 2016-11-21 06:32 | ED Chest Pain ---
General Chief Complaint: Chest Pain Stated Complaint: ANXIETY Nursing Triage Note: intermittant chest pain since afternoon 11/20/16 Nursing Sepsis Screen: No Definite Risk Source: patient Exam Limitations: no limitations History of Present Illness Time seen by provider: 06:09 Initial Comments Here with report of right-sided chest pain that radiated to the right side and centrally and then down into the abdomen. This is been going on since yesterday afternoon and started after she found out about the of her ex- . Denies nausea, vomiting or diarrhea. Denies breathing problems or sweating. She is on renal dialysis and has end-stage renal disease and receives dialysis on Monday, Monday and Monday. Timing/Duration: 12-24 hours Severity/Quality: moderate, aching Location: central Radiation: epigastric Activities at Onset: emotional stress Prior CP/Workup: cardiac cath, echocardiography, stress test Modifying Factors: improves with rest ASA po CIVIL DESIGN SPECIALIST: No NTG SL CIVIL DESIGN SPECIALIST: No Associated Symptoms: No back pain, No diaphoresis, edema, No fever/chills, No nausea/vomiting, No shortness of breath, No weakness Allergies and Home Medications Allergies Coded Allergies: Nitrofurantoin Macrocrystal (Unverified Allergy, Unknown, 10/24/16) benzonatate (Unverified Allergy, Unknown, 10/24/16) gabapentin (Unverified Allergy, Unknown, 10/24/16) lansoprazole (Unverified Allergy, Unknown, 10/24/16) methenamine (Unverified Allergy, Unknown, 10/24/16) naproxen (Unverified Allergy, Unknown, 10/24/16) nitrofurantoin (Unverified Allergy, Unknown, 10/24/16) pioglitazone HCl (Unverified Allergy, Unknown, 10/24/16) prednisone (Unverified Allergy, Unknown, 10/24/16) promethazine (Unverified Allergy, Unknown, 10/24/16) valdecoxib (Unverified Allergy, Unknown, 10/24/16) zolpidem tartrate (Unverified Allergy, Unknown, 10/24/16) levofloxacin (Unverified Adverse Reaction, Unknown, 10/24/16) tolterodine tartrate (Unverified Adverse Reaction, Unknown, 10/24/16) Uncoded Allergies: MELOLAZONE (Allergy, Unknown, 06/23/14) NITROFURATOIN (Allergy, Unknown, 06/23/14) SUFAMETHOXAZOLE (Allergy, Unknown, 06/23/14) APAP/CODEINE (Adverse Reaction, Unknown, 06/23/14) Home Medications Anastrozole 1 Mg Tablet, 1 TAB PO DAILY, (Reported) Benzonatate 100 Mg Capsule, 100 MG PO TID PRN for COUGH, (Reported) Cinacalcet HCl 30 Mg Tablet, 30 MG PO HS, (Reported) Doxycycline Hyclate 100 Mg Tablet.dr, 100 MG PO BID, #20 Prescribed by: BRITANY ROBERTSON on 11/13/16 0520 Famotidine 20 Mg Tablet, 20 MG PO HS, (Reported) Hctz/Valsartan 1 Each Tablet, (Reported) Hydrocodone/Acetaminophen 1 Each Tablet, 1 EACH PO Q4H PRN for PAIN, (Reported) Metoprolol Succinate 50 Mg Tab.er.24h, 50 MG PO DAILY, (Reported) Ondansetron 4 Mg Tab.rapdis, 4 MG PO Q6H PRN for NAUSEA/VOMITING, (Reported) Pantoprazole Sodium 40 Mg Tablet.dr, 40 MG PO DAILY, (Reported) Polyethylene Glycol 3350 119 Gm Powder, 17 GM PO DAILY PRN for CONSTIPATION, ( Reported) Sevelamer Carbonate 800 Mg Tablet, 3,200 MG PO TIDWM, (Reported) TAKE 3 (800MG) TABS Sevelamer Carbonate 800 Mg Tablet, 1,600 MG PO BID WITH SNACKS, (Reported) Warfarin Sodium 5 Mg Tablet, 5 MG PO DAILY@1700, (Reported) [Icaps] , 1 CAP BID, (Reported) [lipitor] , 5 MG PO HS, (Reported) Review of Systems Constitutional: see HPI, No chills, No fever, No weakness EENTM: No Symptoms Reported Respiratory: Denies Cough, Denies Shortness of Air Cardiovascular: Chest Pain, Edema, Denies Lightheadedness Gastrointestinal: Abdominal Pain, Denies Nausea, Denies Vomiting Genitourinary: No Symptoms Reported Musculoskeletal: no symptoms reported Skin: no symptoms reported Psychiatric/Neurological: See HPI, Anxiety, Denies Weakness Endocrine: No Symptoms Reported All Other Systems Reviewed Negative Unless Noted: Yes Past Fqfqbxf-Mnfmux-Ogfhbk Hx Patient Social History Alcohol Use: Denies Use Recreational Drug Use: No Smoking Status: Former Smoker Type Used: Cigarettes 2nd Hand Smoke Exposure: No Recent Foreign Travel: No Contact w/Someone Who Travel: No Recent Infectious Disease Expo: No Recent Hopitalizations: Yes Immunizations Up To Date Tetanus Booster (TDap): Unknown Date of Influenza Vaccine: May 14, 2014 Seasonal Allergies Seasonal Allergies: Yes Surgeries HX Surgeries: Yes (A&P repair, R mastectomy, SPLEEN;LUMBAR SURGERY; RIGHT AV FISTULA, ) Surgeries: Breast, Dialysis, Hysterectomy, Orthopedic, Vascular Surgery Respiratory Hx Respiratory Disorders: Yes (currently taking abx for possible pneumonia, ) Cardiovascular Hx Cardiac Disorders: Yes Cardiac Disorders: Atrial Fibrillation, High Cholesterol, Hypertension Neurological Hx Neurological Disorders: No 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 System Hx 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 Disorders: No 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 HAND 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: Hysterectomy Genitourinary Hx Genitourinary Disorders: Yes (DIALYSIS MWF) Genitourinary Disorders: Renal Failure, Dialysis, UTI-Chronic Gastrointestinal Hx Gastrointestinal Disorders: Yes (hx of colon resections) Gastrointestinal Disorders: Diverticulosis Musculoskeletal Hx Musculoskeletal Disorders: Yes (CHRONIC NECK PAIN, not able to left arms up , hx right side rib fx) Musculoskeletal Disorders: Chronic Back Pain Endocrine Hx Endocrine Disorders: Yes (HYPERPARATHYROIDISM) Endocrine Disorders: Parathyroid Disease, Diabetes, Non-Insulin dep HEENT HX ENT Disorders: No HEENT Disorders: Cataract, Macular Degeneration Cancer Hx Cancer: Yes Cancer: Breast Psychosocial Hx Psychiatric Problems: Yes Behavioral Health Disorders: Anxiety, Bipolar, Depression Integumentary HX Skin/Integumentary Disorder: No Blood Transfusions Hx Blood Disorders: No Adverse Reaction to a Blood Tr: No Reviewed Nursing Assessment Reviewed/Agree w Nursing PMH: Yes Family Medical History Significant Family History: No Pertinent Family Hx Physical Exam Vital Signs Vital Sign - Last 12Hours Capillary Refill : Less Than 3 Seconds General Appearance: No Apparent Distress, WD/WN HEENT: PERRL/EOMI, Pharynx Normal Neck: Non Tender, Supple Respiratory: Lungs Clear, Normal Breath Sounds Cardiovascular: Regular Rate, Rhythm, No Murmur Gastrointestinal: Non Tender, Soft Extremity: Non Tender, No Calf Tenderness Neurologic/Psychiatric: Alert, Oriented x3 Skin: Normal Color, Warm/Dry Progress/Results/Core Measures Results/Orders Lab Results Laboratory Tests Test 11/21/16 06:15 11/21/16 08:15 Range/Units White Blood Count 15.2 H 4.3-11.0 10^3/uL Red Blood Count 3.56 L 4.35-5.85 10^6/uL Hemoglobin 10.8 L 11.5-16.0 G/DL Hematocrit 33 L 35-52 % Mean Corpuscular Volume 94 80-99 FL Mean Corpuscular Hemoglobin 30 25-34 PG Mean Corpuscular Hemoglobin Concent 32 32-36 G/DL Red Cell Distribution Width 15.8 H 10.0-14.5 % Platelet Count 416 H 130-400 10^3/uL Mean Platelet Volume 11.3 H 7.4-10.4 FL Neutrophils (%) (Auto) 54 42-75 % Lymphocytes (%) (Auto) 34 12-44 % Monocytes (%) (Auto) 10 0-12 % Eosinophils (%) (Auto) 2 0-10 % Basophils (%) (Auto) 1 0-10 % Neutrophils # (Auto) 8.2 H 1.8-7.8 X 10^3 Lymphocytes # (Auto) 5.2 H 1.0-4.0 X 10^3 Monocytes # (Auto) 1.5 H 0.0-1.0 X 10^3 Eosinophils # (Auto) 0.3 0.0-0.3 10^3/uL Basophils # (Auto) 0.1 0.0-0.1 10^3/uL Prothrombin Time 42.1 H 12.2-14.7 SEC INR Comment 4.4 H 0.8-1.4 Activated Partial Thromboplast Time 43 H 24-35 SEC Sodium Level 142 135-145 MMOL/L Potassium Level 4.5 3.6-5.0 MMOL/L Chloride Level 95 L 98-107 MMOL/L Carbon Dioxide Level 29 21-32 MMOL/L Anion Gap 18 H 5-14 MMOL/L Blood Urea Nitrogen 52 H 7-18 MG/DL Creatinine 7.21 H 0.60-1.30 MG/DL Estimat Glomerular Filtration Rate 5 BUN/Creatinine Ratio 7 Glucose Level 121 H 70-105 MG/DL Calcium Level 9.5 8.5-10.1 MG/DL Magnesium Level 2.6 H 1.8-2.4 MG/DL Total Bilirubin 0.7 0.1-1.0 MG/DL Aspartate Amino Transf (AST/SGOT) 102 H 5-34 U/L Alanine Aminotransferase (ALT/SGPT) 98 H 0-55 U/L Alkaline Phosphatase 260 H 40-136 U/L Myoglobin 372.5 H 337.0 H 10.0-92.0 NG/ML Troponin I < 0.30 < 0.30 <0.30 NG/ML Total Protein 7.0 6.4-8.2 G/DL Albumin 3.6 3.2-4.5 G/DL Amylase Level 63 25-125 U/L Lipase 52 8-78 U/L My Orders Orders - CHRIS GARCIA MD Cbc With Automated Diff (11/21/16 06:20) Magnesium (11/21/16 06:20) Chest 1 View, Ap/Pa Only (11/21/16 06:20) Ekg Tracing (11/21/16 06:20) Cardiac Profile 1 (11/21/16 06:20) Comprehensive Metabolic Panel (11/21/16 06:20) Myoglobin Serum (11/21/16 06:20) Protime With Inr (11/21/16 06:20) Partial Thromboplastin Time (11/21/16 06:20) O2 (11/21/16 06:20) Monitor-Rhythm Ecg Trace Only (11/21/16 06:20) Lipid Panel (11/22/16 06:00) Aspirin Chewable Tablet (Baby Aspirin Ch (11/21/16 06:30) Saline Lock/Iv-Start (11/21/16 06:20) Lipase (11/21/16 06:20) Amylase (11/21/16 06:20) Hydralazine Injection (Apresoline Inject (11/21/16 06:30) Metoprolol Succinate (Xl) Tab (Toprol Xl (11/21/16 06:30) Aspirin Chewable Tablet (Baby Aspirin Ch (11/21/16 06:20) Hydralazine Injection (Apresoline Inject (11/21/16 06:20) Morphine Injection (Morphine Injection (11/21/16 06:56) Hydrocodone/Apap 7.5/325 Tab (Lortab 7. (11/21/16 07:26) Troponin I (11/21/16 07:57) Ekg Tracing (11/21/16 07:57) Myoglobin Serum (11/21/16 08:07) Medications Given in ED Current Medications Medications Dose Ordered Sig/Layo Route Start Time Stop Time Status Last Admin Dose Admin Aspirin 324 mg ONCE ONCE PO 11/21/16 06:30 11/21/16 06:32 DC 11/21/16 06:25 324 MG Hydralazine HCl 20 mg ONCE ONCE IV 11/21/16 06:30 11/21/16 06:32 DC 11/21/16 06:25 20 MG Metoprolol Succinate 50 mg ONCE ONCE PO 11/21/16 06:30 11/21/16 06:32 DC 11/21/16 06:27 50 MG Vital Signs/I&O Vital Sign - Last 12Hours 11/21/16 11/21/16 11/21/16 11/21/16 06:08 06:08 06:12 06:53 Temp 98.2 Pulse 62 64 Resp 13 12 B/P (MAP) 201/76 145/54 Pulse Ox 95 97 98 O2 Delivery Nasal Cannula Nasal Cannula Nasal Cannula Nasal Cannula O2 Flow Rate 2.00 2.0 2.00 2.00 Blood Pressure Mean: 117 Progress Note : Progress Note Seen and evaluated. IV, labs, EKG and chest x-ray ordered. ASA 324 mg by mouth. Metoprolol 50 mg by mouth and hydralazine 20 mg IV ordered. Monitor patient. Blood pressure improved. Repeat troponin and myoglobin as well as EKG at 2 are marked. 0850: Blood pressure ranges around depending on her agitation but she is without chest pain. Patient does need dialysis. She is scheduled for that today. Troponin and myoglobin are negative and EKG is unchanged. Discharged home with return precautions. Patient verbalize understanding instructions and agreement with plan. ECG Initial ECG Impression Date: Nov 21, 2016 Initial ECG Impression Time: 06:12 Initial ECG Rate: 59 Initial ECG Rhythm: Normal Sinus Comment Sinus rhythm with normal axis. No evidence of ST elevation [place]. Similar to previous of 10/24/16. Interpreted by me. EKG : EKG Time: 08:05 Rate: 60 Rhythm: Normal Sinus Comment Sinus rhythm with normal axis. No evidence of ST elevation [place]. Similar to previous done earlier today. Interpreted by me. Diagnostic Imaging Diagonstic Imaging: Xray Plain Films/CT/US/NM/MRI: chest Comments VIA [facility]. [place], [place] NAME: MAYNOR HACKETT [facility] REC#: [id number] PT STATUS: REG ER : 1935 PHYSICIAN: CHRIS GARCIA MD ADMIT DATE: 11/21/16/ER Draft Date of Exam:11/21/16 CHEST 1 VIEW, AP/PA ONLY INDICATION: Chest pain Compared with study of 11/13/2016. FINDINGS: Heart size stable. Postoperative changes to the left chest stable. Small right pleural effusion noted unchanged with some basilar atelectasis or infiltrate improved. No adverse development. IMPRESSION: Improvements in right basilar pleural parenchymal opacity with no adverse development. Dictated on workstation # [id number] Dict: 11/21/16 0643 Trans: 11/21/16 0648 [facility] [id number] Interpreted by: ELISA ELKINS Electronically signed by: Departure Impression Impression: Primary Impression: Chest pain Qualified Codes: R07.9 - Chest pain, unspecified Additional Impression: End stage renal disease on dialysis Disposition: HOME, SELF-CARE Condition: Stable Departure-Patient Inst. Decision time for Depature: 08:55 Referrals: PAO PERKINS MD (PCP/Family) Primary Care Physician Patient Instructions: Chest Pain (DC) Add. Discharge Instructions: All discharge instructions reviewed with patient and/or family. Voiced understanding. You need to have your dialysis today. Follow-up with your Dr. in one to 2 days for recheck. Return for worse pain, fever, vomiting, weakness, breathing problems or other concerns as needed. CHRIS GARCIA MD Nov 21, 2016 06:32
[2016-11-21 06:37] LABS: INR 4.4 (0.8-1.4); PROTHROMBIN TIME PATIENT 42.1 SEC (12.2-14.7)
[2016-11-21 06:49] LABS: ALANINE AMINOTRANSFERASE 98 U/L (0-55); ALBUMIN 3.6 G/DL (3.2-4.5); AMYLASE 63 U/L (25-125); ANION GAP 18 MMOL/L (5-14); ASPARTATE AMINO TRANSFERASE 102 U/L (5-34); BILIRUBIN,TOTAL 0.7 MG/DL (0.1-1.0); BLOOD UREA NITROGEN 52 MG/DL (7-18); BUN/CREATININE RATIO 7; CALCIUM 9.5 MG/DL (8.5-10.1); CARBON DIOXIDE 29 MMOL/L (21-32); CHLORIDE 95 MMOL/L (98-107); CREATININE SERUM 7.21 MG/DL (0.60-1.30); GFR ESTIMATED 5; GLUCOSE 121 MG/DL (70-105); LIPASE 52 U/L (8-78); MAGNESIUM 2.6 MG/DL (1.8-2.4); POTASSIUM 4.5 MMOL/L (3.6-5.0); SODIUM 142 MMOL/L (135-145)
--- NOTE | 2016-11-21 06:49 | Diagnostic Imaging Report ---
INDICATION: Chest pain Compared with study of 11/13/2016. FINDINGS: Heart size stable. Postoperative changes to the left chest stable. Small right pleural effusion noted unchanged with some basilar atelectasis or infiltrate improved. No adverse development. IMPRESSION: Improvements in right basilar pleural parenchymal opacity with no adverse development. Dictated by: Dictated on workstation # [id number]
[2016-11-21 06:53] VITALS: BP 145/54
[2016-11-21] MEDS ORDERED: morphine INJ 10 MG/ML 1ML (SYR OR VIAL) IVP STA (06:56)
[2016-11-21 06:57] LABS: MYOGLOBIN SERUM 372.5 NG/ML (10.0-92.0)
[2016-11-21] MEDS ORDERED: HYDROcodone/APAP 7.5 MG/325 MG (LORTAB, LORCET PLUS) TABLET PO STA (07:26)
[2016-11-21 08:43] LABS: TROPONIN I < 0.30 NG/ML (<0.30)
[2016-11-21 09:04] VITALS: BP 177/69
[2016-12-09] MEDS ORDERED: HYDR-3816 PO (10:44)
[2016-12-09] MEDS ORDERED: BISA5TAB8 PO (10:44)
== END 2016-11-21 09:17 | disposition home or self-care (01) ==
LOC: EDUNIT# 06:07 → ER 06:08
DX: R07.9 Chest pain, unspecified (principal); I12.0 Hypertensive chronic kidney disease with stage 5 chronic kidney disease or end stage renal disease; N18.6 End stage renal disease; Z99.2 Dependence on renal dialysis; I48.2 Chronic atrial fibrillation; E11.9 Type 2 diabetes mellitus without complications; K57.30 Diverticulosis of large intestine without perforation or abscess without bleeding; Z79.01 Long term (current) use of anticoagulants; Z79.899 Other long term (current) drug therapy; Z87.891 Personal history of nicotine dependence; Z90.11 Acquired absence of right breast and nipple; Z85.3 Personal history of malignant neoplasm of breast
CPT/HCPCS: 36415; 71010; 80053; 82150; 83690; 83735; 83874; 84484; 85025; 85610; 85730; 93005; 93041; 96374

== ENCOUNTER 2016-11-28 10:15 | Inpatient (IN) | payer MEDICARE, MEDICAID ==
[~2016-11-28] VITALS: Ht 162.6 cm; Wt 78.0 kg
[2016-11-28] MEDS ORDERED: LIDOCAINE 1% 10 MG/ML 0.2 ML SYR (FOR IV START) ONE (10:42)
[2016-11-28] MEDS ORDERED: ceFAZolin 2 GM/NS 50 ML IV ONE (10:45)
[2016-11-28 11:00] VITALS: BP 149/59
[2016-11-28] MEDS ORDERED: ONDANSETRON 4 MG/2 ML (SDV) Z0FRAN ONE ×3 (11:10→15:13)
[2016-11-28] MEDS ORDERED: FAMOTIDINE 20MG/2ML IV (PEPCID) ONE (11:10)
[2016-11-28] MEDS ORDERED: LACTATED RINGERS 1,000 ML IV PRN (11:18)
[2016-11-28 11:48] LABS: INR 1.6 (0.8-1.4); PROTHROMBIN TIME PATIENT 18.5 SEC (12.2-14.7)
[2016-11-28 11:55] LABS: ALBUMIN 3.2 G/DL (3.2-4.5); BILIRUBIN,TOTAL 0.5 MG/DL (0.1-1.0); CALCIUM 8.7 MG/DL (8.5-10.1); CREATININE SERUM 2.95 MG/DL (0.60-1.30); POTASSIUM 3.3 MMOL/L (3.6-5.0); TOTAL PROTEIN 6.1 G/DL (6.4-8.2)
[2016-11-28] MEDS ORDERED: fentaNYL INJECTION 250 MCG/5 ML AMP ONE (13:00)
[2016-11-28] MEDS ORDERED: DEXMEDETOMIDINE PRE-MIX (OR) 50 ML IV ONE (13:04)
[2016-11-28] MEDS ORDERED: MEPERIDINE (DEMEROL) INJ 50 MG/ML ONE (15:02)
[2016-11-28] MEDS ORDERED: fentaNYL INJECTION 100 MCG/2 ML AMP ONE (15:07)
[2016-11-28] MEDS ORDERED: HYDROmorphone (DILAUDID) 2 MG/ML VIAL ONE (15:07)
[2016-11-28] MEDS ORDERED: morphine INJ 10 MG/ML 1ML (SYR OR VIAL) ONE (15:07)
[2016-11-28] MEDS ORDERED: LACTATED RINGERS 1,000 ML IV ONE (15:13)
[2016-11-28] MEDS ORDERED: LIDOCAINE PF 2% 10 ML (XYLOCAINE) AMP ONE (15:13)
[2016-11-28] MEDS ORDERED: SEVOFLURANE (ULTANE) 15 ML INHAL SOLN ONE (15:13)
[2016-11-28] MEDS ORDERED: proPOfol 200 MG/20 ML (DIPRIVAN) VIAL IV ONE (15:13)
[2016-11-28] MEDS ORDERED: ROCURONIUM 50 MG/5 ML (ZEMURON) VIAL IV ONE (15:13)
[2016-11-28] MEDS ORDERED: BISACODYL 5 MG (DULCOLAX) TABLET PO PRN (15:30)
[2016-11-28] MEDS ORDERED: BISACODYL 10 MG SUPP (DULCOLAX) PR PRN (15:30)
[2016-11-28] MEDS ORDERED: ONDANSETRON 4 MG/2 ML (SDV) Z0FRAN IV PRN (15:30)
--- NOTE | 2016-11-28 15:31 | Diagnostic Imaging Report ---
Indication: Neck pain followup. Discussion: Fluoroscopic support was provided during intraoperative anterior cervical discectomy and fusion. Please see the operative report for full detail. Fluoroscopy time: 13 seconds. Impression: 1. Intraoperative cervical spine fusion. Dictated by: Dictated on workstation # [id number]
[2016-11-28] MEDS ORDERED: ONDANSETRON 4 MG/2 ML (SDV) Z0FRAN IVP PRN (16:00)
[2016-11-28] MEDS ORDERED: morphine INJ 10 MG/ML 1ML (SYR OR VIAL) IVP PRN (16:00)
[2016-11-28 17:00] VITALS: BP 173/63
[2016-11-28] MEDS: fentaNYL INJECTION 100 MCG/2 ML AMP IVP PRN ×2 (18:49→21:59)
[2016-11-28] MEDS: ceFAZolin INJECTION 1,000 MG in NS (IVPB) 50 ML IV SCH (19:47)
[2016-11-28] MEDS: CATHETER FLUSH 10 ML SYR IV PRN (19:47)
[2016-11-28 20:00] VITALS: BP 163/67
[2016-11-29] VITALS (7 sets, daily range): BP systolic 130–193; BP diastolic 62–72
[2016-11-29] MEDS: fentaNYL INJECTION 100 MCG/2 ML AMP IVP PRN ×2 (01:54→11:45)
[2016-11-29] MEDS: CATHETER FLUSH 10 ML SYR IV PRN ×2 (01:54→02:56)
[2016-11-29] MEDS: ceFAZolin INJECTION 1,000 MG in NS (IVPB) 50 ML IV SCH ×2 (02:56→11:50)
[2016-11-29 05:55] LABS: BASOPHILS # (AUTO) 0.1 10^3/uL (0.0-0.1); BASOPHILS % (AUTO) 1 % (0-10); EOSINOPHILS # (AUTO) 0.4 10^3/uL (0.0-0.3); EOSINOPHILS % (AUTO) 3 % (0-10); LYMPHOCYTES # (AUTO) 3.7 X 10^3 (1.0-4.0); LYMPHOCYTES % (AUTO) 21 % (12-44); MEAN CORPUSCULAR HEMOGLOBIN 30 PG (25-34); MEAN CORPUSCULAR HGB CONC 32 G/DL (32-36); MEAN CORPUSCULAR VOLUME 95 FL (80-99); MEAN PLATELET VOLUME 12.4 FL (7.4-10.4); MONOCYTES % (AUTO) 11 % (0-12); NEUTROPHILS # (AUTO) 11.4 X 10^3 (1.8-7.8); NEUTROPHILS % (AUTO) 65 % (42-75); PLATELET COUNT 310 10^3/uL (130-400); RED BLOOD COUNT 3.29 10^6/uL (4.35-5.85); RED CELL DISTRIBUTION WIDTH 16.6 % (10.0-14.5); WHITE BLOOD COUNT 17.6 10^3/uL (4.3-11.0)
[2016-11-29 06:19] LABS: CALCIUM 8.7 MG/DL (8.5-10.1); CREATININE SERUM 3.87 MG/DL (0.60-1.30); POTASSIUM 4.6 MMOL/L (3.6-5.0)
[2016-11-29 06:20] LABS: BAND NEUTROPHILS 0 %; NEUTROPHILS % (MANUAL) 72 %
[2016-11-29 06:21] LABS: ANISOCYTOSIS SLIGHT; ATYPICAL LYMPHOCYTES 2 %; BASOPHILS % (MANUAL) 0 %; EOSINOPHILS % (MANUAL) 2 %; LYMPHOCYTES % (MANUAL) 18 %; POIKILOCYTOSIS SLIGHT; TARGET CELLS SLIGHT
[2016-11-29] MEDS ORDERED: ATOR10TA66 PO (09:37)
[2016-11-29] MEDS ORDERED: B2/V1TAB PO (09:37)
[2016-11-29] MEDS ORDERED: CINA30TA2 PO (09:37)
--- NOTE | 2016-11-29 09:43 | Physical Therapy Evaluation ---
PT Evaluation-General Medical Diagnosis Admission Date Nov 28, 2016 at 10:15 Medical Diagnosis: Cervical surgery Onset Date: Nov 28, 2016 Therapy Diagnosis Therapy Diagnosis: weakness; abn gait Height/Weight Height (Feet): 5 Height (Inches): 4.00 Weight (Pounds): 172 Weight (Ounces): 0.0 Precautions Precautions/Isolations: Fall Prevention, Standard Precautions Weight Bear Status Comments hard collar when up Referral Reason for Referral: Evaluation/Treatment Medical History Additional Medical History ESRD--dialysis 3x/wk, GI bleed, cervial strain, contusion right hip, fall, lumbar stensosis Current History Admitted for C3-6 anterior cervical decompression and fusion. Reviewed History: Yes Social History Home: Assisted Living Entry Into Home: Level Entry Prior/Core FIM Prior Level of Function Functional [place] Measure 0=Not Assessed/NA 4=Minimal Assistance 1=Total Assistance 5=Supervision or Setup 2=Maximal Assistance 6=Modified [place] 3=Moderate Assistance 7=Complete [place] Pt reports she was able to perform self care without assist; reports she uses a 4WW for mobility. Goes to dialysis 3x/wk PT Evaluation-Current Subjective Agreeable to PT. Pain Numeric Pain Scale: 5-Moderate Pain Location: Posterior Location Body Site: Neck Pain Description: Ache (sore) Comment: nursing notified Objective Patient Orientation: Person, Place, Time, Situation Problem Solving: Good Attachments: Oxygen (insitu post treatment), IV ROM/Strength ROM Lower Extremities wFL Strenght Lower Extremities WFL Integumentary/Posture Integumentary refer to nursing notes Bowel Incontinence: No Bladder Incontinence: No Posture normal and symmetrical Neuromuscular (Tone, Coordination, Reflexes) intact Sensory Vision: Functional Hearing: Functional Hand Dominance: Right Sensation Right Lower Extremit: Intact Sensation Left Lower Extremity: Intact Transfers Functional [place] Measure 0=Not Assessed/NA 4=Minimal Assistance 1=Total Assistance 5=Supervision or Setup 2=Maximal Assistance 6=Modified [place] 3=Moderate Assistance 7=Complete [place] Sit to stand with sBA and skilled cues for hand placement and sequencing. Pt up in chair so did not assess bed mobility. Gait Mode of Locomotion: Walk Anticipated Mode of Locomotion: Walk Gait (FIM): 2 Distance (FIM): 1=up to 49 ft Distance: 40 ft Gait Level of Assist: 5 Gait Assistive Device: FWW Comments/Gait Description SBA with gait with FWW; normal gait pattern with no noted LOB and ability to make turns without difficulty. Treatment Gait and transfers. Assessment/Needs Post cervical surgery with need for supervision with functional mobility. Pt would benefit from skilled PT intervention to work on functional safety and mobility to allow her to return to her PLOF. Rehab Potential: Good PT Shipwright Apprentice Goals Shelter Goals PT Shipwright Apprentice Goals Time Frame: Dec 02, 2016 Transfers (B,C,W/C) (FIM): 6 Gait (FIM): 6 Gait Assistive Device: FWW PT Plan Problem List Problem List: Activity Tolerance, Functional Strength, Safety, Balance, Gait, Transfer, Bed Mobility Treatment/Plan Treatment Plan: Continue Plan of Care Treatment Plan: Bed Mobility, Education, Functional Activity Franco, Functional Strength, Gait, Safety, Therapeutic Exercise, Transfers Treatment Duration: Dec 02, 2016 # of days/week 5-6 Visits Per Week: 10-11 Pt/Family Agrees w/Plan: Yes Safety Risks/Education Patient Education: Transfer Techniques Teaching Recipient: Patient Teaching Methods: Demonstration, Discussion Response to Teaching: Return Demonstration, Reinforcement Needed Time/GCodes Time In: 900 Time Out: 926 Total Billed Treatment Time: 26 Total Billed Treatment visit EVM 12 FA 14 JAVI LEONG PT Nov 29, 2016 09:43
--- NOTE | 2016-11-29 11:05 | Occupational Therapy Eval ---
OT Evaluation-General/PLF Medical Diagnosis Admission Date Nov 28, 2016 at 10:15 Medical Diagnosis: Cervical surgery Onset Date: Nov 28, 2016 Therapy Diagnosis Therapy Diagnosis: decreased self care Height/Weight Height (Feet): 5 Height (Inches): 4.00 Weight (Pounds): 172 Weight (Ounces): 0.0 Precautions Precautions/Isolations: Fall Prevention, Standard Precautions Safety Interventions: None Medical History Additional Medical History ESRD--dialysis 3x/wk, GI bleed, cervical strain, contusion right hip, fall, lumbar stenosis Current History Pt s/p C3-C6 anterior cervical decompression and fusion. Social History Home: Assisted Living Entry Into Home: Level Entry ADL-Prior Level of Function ADL PLOF Comments Pt states she has been mostly independent with basic self care, but receives assist as needed. Reports increased difficulty in last few days prior to surgery. Uses walker or w/c for mobility. Has dialysis M-W-F DME/Equipment: Grab Bars, Shower, Tall Toilet OT Current Status Subjective Pt sitting up in chair, agrees to therapy. Mental Status/Objective Attachments: Drains, IV, Oxygen Current Glasses/Contacts: Yes (reading glasses) Hand Dominance: Right Upper Extremity ROM Impaired bilateral shoulder ROM, has minimal active shoulder movement against gravity Upper Extremity Coordination Decreased. Pt reports numbness in hands R>L Upper Extremity Strength Impaired bilateral UE ADL-Treatment ADL-Current Pt participated in grooming tasks while seated in chair. Pt able to wash face with minimal assistance and increased time. Pt unable to lift UE adequately to wash forehead, so required assist with this part of task. Pt required maximal assistance to comb hair. Pt states she required assist to eat breakfast this morning. Pt states she just finished walking with PT and would just like to sit in chair and rest. All needs met after session. Functional [place] Measure 0=Not Assessed/NA 4=Minimal Assistance 1=Total Assistance 5=Supervision or Setup 2=Maximal Assistance 6=Modified [place] 3=Moderate Assistance 7=Complete IndependenceIRFPAI Quality Coding Scale 6 Independent with activity with or without an assistive device 5 Patient requires set up or clean up by helper. Patient completes activity by themselves 4 Supervision or touching assist (CGA). [place] provide cues , steadying assist 3 The helper provides less than half the effort to complete the activity 2 The helper provides more than half the effort to complete the activity 1 Dependent. The helper does all the effort to complete an activity 7 Patient refused to complete or attempt activity 9 The patient did not perform the activity before the current illness or injury 88 Not attempted due to Medical conditions or safety concerns Grooming (FIM): 2 Education OT Patient Education: Rehab process Teaching Recipient: Patient Teaching Methods: Discussion Response to Teaching: Verbalize Understanding OT Short Term Goals Short Term Goals 1=Demonstrate adherence to instructed precautions during ADL tasks. 2=Patient will verbalize/demonstrate understanding of assistive devices/ modifications for ADL. 3=Patient will improve strength/tolerance for activity to enable patient to perform ADL's. OT Gullet Slitter Goals Gullet Slitter Goals Time Frame: December 13, 2016 Eating (FIM): 5 Grooming(FIM): 5 Upper Body Dressing(FIM): 4 Toileting(FIM): 5 Toilet/Commode Transfer(FIM): 6 Additional Goals: 1-Demonstrate ADL Tasks, 2-Verbalize Understanding, 3- ImproveStrength/Franco 1=Demonstrate adherence to instructed precautions during ADL tasks. 2=Patient will verbalize/demonstrate understanding of assistive devices/ modifications for ADL. 3=Patient will improve strength/tolerance for activity to enable patient to perform ADL's. OT Education/Plan Problem List/Assessment Assessment: Decreased Activ Tolerance, Decreased UE Strength, Dependent Transfers, Impaired Coordination, Impaired Self-Care Skills Pt s/p cervical surgery. Pt has decreased strength in bilateral UE impacting ability to perform ADL tasks. Pt to benefit from skilled OT intervention for ADL training, transfers, strengthening, and safety education to maximize level of function and allow safe discharge plan. Discharge Recommendations Plan/Recommendations: Continue POC Treatment Plan/Plan of Care Treatment,Training & Education: Yes Patient would benefit from OT for education, treatment and training to promote independence in ADL's, mobility, safety and/or upper extremity function for ADL' s. Plan of Care: ADL Retraining, Functional Mobility, UE Funct Exercise/Act, UE Neuromus Re-Ed/Coord Treatment Duration: December 13, 2016 # of days/week 5 Visits Per Week: 5 Agreement: Yes Rehab Potential: Fair Time/GCodes Start Time: 09:16 Stop Time: 10:03 Total Time Billed (hr/min): 17 Billed Treatment Time 1 visit, BOGDAN(17minutes) ANGELY LONDON OT Nov 29, 2016 11:05
--- NOTE | 2016-11-29 12:35 | Diagnostic Imaging Report ---
EXAMINATION: Two views of the cervical spine. INDICATION: Post cervical fusion. FINDINGS: There is anterior cervical fusion hardware and disc spacers seen at the C3 through C6 levels. There is satisfactory alignment. The vertebral body heights are preserved. The prevertebral soft tissues appear unremarkable. IMPRESSION: Post anterior fusion and discectomy changes involving the C3 through C6 levels. Dictated by: Dictated on workstation # [id number]
--- NOTE | 2016-11-29 13:12 | Physical Therapy Daily Note ---
PT Daily Note-Current Subjective Patient does c/o nausea, however, agrees to therapy. Pain Numeric Pain Scale: 5-Moderate Pain Location: Anterior Location Body Site: Neck Pain Description: Acute Mental Status Patient Orientation: Normal For Age Attachments: Oxygen, IV Transfers Functional [place] Measure 0=Not Assessed/NA 4=Minimal Assistance 1=Total Assistance 5=Supervision or Setup 2=Maximal Assistance 6=Modified [place] 3=Moderate Assistance 7=Complete IndependenceIRFPAI Quality Coding Scale 6 Independent with activity with or without an assistive device 5 Patient requires set up or clean up by helper. Patient completes activity by themselves 4 Supervision or touching assist (CGA). [place] provide cues , steadying assist 3 The helper provides less than half the effort to complete the activity 2 The helper provides more than half the effort to complete the activity 1 Dependent. The helper does all the effort to complete an activity 7 Patient refused to complete or attempt activity 9 The patient did not perform the activity before the current illness or injury 88 Not attempted due to Medical conditions or safety concerns Transfers (B, C, W/C) (FIM): 4 Scootin Rollin Supine to/from Sit: 4 Sit to/from Stand: 5 Bed to/from Chair: 5 assist for 1 LE with supine<>sit transfers Assessment Patient is very independent and is determined to perform all activity as independently as possible. Patient requires time to complete all functional tasks. PT to increase activity as tolerated by patient. PT Usp Goals Usp Goals PT Tower Equipment Installer Goals Time Frame: Dec 02, 2016 Transfers (B,C,W/C) (FIM): 6 Gait (FIM): 6 Gait Assistive Device: FWW PT Plan Treatment/Plan Treatment Plan: Continue Plan of Care Treatment Plan: Bed Mobility, Education, Functional Activity Franco, Functional Strength, Gait, Safety, Therapeutic Exercise, Transfers Treatment Duration: Dec 02, 2016 Visits Per Week: 10-11 Time/GCodes Time In: 1225 Time Out: 1248 Total Billed Treatment Time: 23 Total Billed Treatment 1 visit FA x 2 23 min HASMUKH CASTILLO PT Nov 29, 2016 13:12
--- NOTE | 2016-11-29 13:17 | Consultation-Hospitalist ---
HPI History of Present Illness: HPI/Chief Complaint Mrs. Kelly is a frail 81-year-old white female who is one day out from C3 through C6 anterior cervical fusion per Dr. Hand. She has a history of stage V chronic renal disease on dialysis Monday and Monday with reported a hyperparathyroidism. It appears this may be primary although clearly she she may have a component of secondary hyperparathyroidism considering her renal disease. Her alkaline phosphatase was elevated to 180 yesterday but her other liver function tests were normal. This morning there is moderate elevation of all of her liver function studies. While she is chronically ill in appearance and fatigue she is alert and reports that while she is still quite sore she does feel better today than she did yesterday. In review of her vital signs there does not appear to be in the operative record of hypotension nor is there any evidence for hypotension on the floor. O2 saturations appear to be normal as well. There are no reports of oversedation and the patient was alert during the interview and quite demanding of staff and myself making multiple requests for position change, bed sheet adjustment, water, pain medication etc. during her interview. she is not aware of any past history of liver problems. She has a past history of cholecystectomy. She has a very long list of reported allergies most of which sound more like intolerances. She is not aware that any medications of been associated with hepatitis or liver injury in the past. She has received several doses of tramadol and several doses of fentanyl most of her other home medicines have been held. Date Seen 11/29/16 Attending Physician Jaylen Hand Maxwell MD Referring Physician Date of Admission Nov 28, 2016 at 10:15 Home Medications & Allergies Home Medications Reviewed patient Home Medication Reconciliation Form Allergies Allergies Coded Allergies Nitrofurantoin Macrocrystal (Unverified Allergy, Unknown, 10/24/16) Sulfa (Sulfonamide Antibiotics) (Unverified Allergy, Unknown, 11/28/16) acetaminophen (Unverified Allergy, Unknown, 11/28/16) benzonatate (Unverified Allergy, Unknown, 10/24/16) codeine (Unverified Allergy, Unknown, 11/28/16) gabapentin (Unverified Allergy, Unknown, 10/24/16) lansoprazole (Unverified Allergy, Unknown, 10/24/16) methenamine (Unverified Allergy, Unknown, 10/24/16) naproxen (Unverified Allergy, Unknown, 10/24/16) nitrofurantoin (Unverified Allergy, Unknown, 10/24/16) pioglitazone HCl (Unverified Allergy, Unknown, 10/24/16) prednisone (Unverified Allergy, Unknown, 10/24/16) promethazine (Unverified Allergy, Unknown, 10/24/16) valdecoxib (Unverified Allergy, Unknown, 10/24/16) zolpidem tartrate (Unverified Allergy, Unknown, 10/24/16) levofloxacin (Unverified Adverse Reaction, Unknown, 10/24/16) tolterodine tartrate (Unverified Adverse Reaction, Unknown, 10/24/16) Uncoded Allergies MELOLAZONE ( Allergy, Unknown, 06/23/14) Past Krpcjqi-Opixcb-Elhbwm Hx Patient Social History Alcohol Use: Denies Use Recreational Drug Use: No Smoking Status: Former Smoker Type Used: Cigarettes 2nd Hand Smoke Exposure: No Physical Abuse Screen: No Sexual Abuse: No Recent Foreign Travel: No Contact w/other who traveled: No Recent Hopitalizations: Yes Recent Infectious Disease Expo: No Immunizations Up To Date Tetanus Booster (TDap): Unknown Date of Pneumonia Vaccine: Oct 12, 2016 Date of Influenza Vaccine: May 14, 2014 Seasonal Allergies Seasonal Allergies: Yes Surgeries HX Surgeries: Yes (A&P repair, R mastectomy, SPLEEN;LUMBAR SURGERY; RIGHT AV FISTULA, ) Surgeries: Breast, Dialysis, Hysterectomy, Orthopedic, Vascular Surgery Respiratory Hx Respiratory Disorders: Yes (currently taking abx for possible pneumonia, ) Cardiovascular Hx Cardiovascular Disorders: Yes Cardiac Disorders: Atrial Fibrillation, High Cholesterol, Hypertension Neurological Hx Neurological Disorders: No 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 System Hx 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 Disorders: No Genitourinary Hx Genitourinary Disorders: Yes (DIALYSIS MWF) Genitourinary Disorders: Renal Failure, Dialysis, UTI-Chronic Gastrointestinal Hx Gastrointestinal Disorders: Yes (hx of colon resections) Gastrointestinal Disorders: Diverticulosis Musculoskeletal Hx Musculoskeletal Disorders: Yes (CHRONIC NECK PAIN, not able to left arms up , hx right side rib fx) Musculoskeletal Disorders: Chronic Back Pain Endocrine Hx Endocrine Disorders: Yes (HYPERPARATHYROIDISM) Endocrine Disorders: Parathyroid Disease, Diabetes, Non-Insulin dep HEENT HX ENT Disorders: No HEENT Disorders: Cataract, Macular Degeneration Cancer Hx Cancer: Yes Cancer: Breast Psychosocial Hx Psychiatric Problems: Yes Behavioral Health Disorders: Anxiety, Bipolar, Depression Integumentary HX Skin/Integumentary Disorder: No Blood Transfusions Hx Blood Disorders: No Adverse Reaction to a Blood Tr: No Family Medical History Significant Family History: No Pertinent Family Hx Review of Systems Constitutional: No chills, No diaphoresis, No dizziness, No fever, No malaise, weakness, No weight gain, No weight loss Respiratory: No cough, No dyspnea on exertion, No hemoptysis, No orthopnea, No phlegm, No short of breath Cardiovascular: No chest pain, No edema, No Hx of Intervention, No palpitations , No syncope, No vascular heart diseas Gastrointestinal: nausea (mild), other (she is tolerating liquids she reports chronic constipation up until about several days ago when she's had several loose stools. She denies abdominal pain and denies pruritus she has had no indigestion or difficulty swallowing.) Physical Exam Physical Exam Vital Signs Vital Sign - Last 12Hours 11/28/16 11/28/16 11:00 17:00 Temp 97.9 Pulse 63 Resp 16 B/P (MAP) 149/59 Pulse Ox 98 O2 Delivery Room Air O2 Flow Rate 2.00 Capillary Refill : General Appearance: Chronically ill, Mild Distress Neck: Other (and the Hira left neck with drain usual amount of swelling. The patient's voice is not hoarse no JVD is noted.) Respiratory: Chest Non Tender, No Accessory Muscle Use, No Respiratory Distress , Other (some diminished breath sounds in the bases otherwise chest is clear) Cardiovascular: Regular Rate, Rhythm, No Edema, No Gallop, No JVD, Normal Peripheral Pulses, Other (soft 1 to 2/6 systolic ejection murmur heard best left lower sternal border.) Gastrointestinal: Other (all sounds are hyperactive there is some mild tenderness the right upper quadrant liver is not palpable no mass or organomegaly is noted. The abdomen is soft) Extremity: No Pedal Edema Neurologic/Psychiatric: Alert, Oriented x3 Results Results/Procedures Lab Laboratory Tests 11/28/16 11:24 11/29/16 05:05 Laboratory Tests 11/29/16 05:05: White Blood Count 17.6H, Red Blood Count 3.29L, Hemoglobin 9.9L, Hematocrit 31L , Mean Corpuscular Volume 95, Mean Corpuscular Hemoglobin 30, Mean Corpuscular Hemoglobin Concent 32, Red Cell Distribution Width 16.6H, Platelet Count 310, Mean Platelet Volume 12.4H, Neutrophils (%) (Auto) 65, Lymphocytes (%) (Auto) 21 , Monocytes (%) (Auto) 11, Eosinophils (%) (Auto) 3, Basophils (%) (Auto) 1, Neutrophils # (Auto) 11.4H, Lymphocytes # (Auto) 3.7, Monocytes # (Auto) 2.0H, Eosinophils # (Auto) 0.4H, Basophils # (Auto) 0.1, Neutrophils % (Manual) 72, Lymphocytes % (Manual) 18, Monocytes % (Manual) 6, Eosinophils % (Manual) 2, Basophils % (Manual) 0, Band Neutrophils 0, Atypical Lymphocytes 2, Poikilocytosis SLIGHT, Anisocytosis SLIGHT, Target Cells SLIGHT, Sodium Level 137, Potassium Level 4.6, Chloride Level 97L, Carbon Dioxide Level 24, Anion Gap 16H, Blood Urea Nitrogen 18, Creatinine 3.87H, Estimat Glomerular Filtration Rate 11, BUN/Creatinine Ratio 5, Glucose Level 98, Calcium Level 8.7 , Total Bilirubin 1.0, Aspartate Amino Transf (AST/SGOT) 298H, Alanine Aminotransferase (ALT/SGPT) 133H, Alkaline Phosphatase 475H, Total Protein 6.0L , Albumin 3.0L Assessment/Plan Admission Diagnosis 1. Acute liver function test elevation anoxic hepatopathy is a concern drug- related cause would be the differential diagnosis as well. We'll have to hold her atorvastatin. She's been on this for some time and this is not a likely etiology but we'll have to hold until liver function tests normalize. We will have to hold her tramadol as well continuing fentanyl on a when necessary basis for pain. We will repeat liver function studies in the morning. We may have to hold discharge. She has been making some urine and is not in heart failure. At this point she would likely be able to skip dialysis day and return on Monday if need be. We will reevaluate in the morning. We'll repeat chemistry panel in the morning. 2. Stage V chronic renal disease dialysis dependent reportedly due to hypertension. 3. Hypertension currently under good control on minimal medication will resume beta meliza therapy. 4. Considering number 1 and the need for intermittent narcotic therapy will set up O2 sat monitoring Clinical Quality Measures DVT/VTE Risk/Contraindication: Risk Factor Score Per Nursin RFS Level Per Nursing on Admit: 4+=Very High TRAVIS ROSADO MD Nov 29, 2016 13:16
--- NOTE | 2016-11-29 15:13 | Anesthesia-General Post-Op ---
General Patient Condition Mental Status/LOC: Same as Preop Cardiovascular: Satisfactory Nausea/Vomiting: Absent Respiratory: Satisfactory Pain: Controlled Complications: Absent Post Op Complications Complications None Follow Up Care/Instructions Patient Instructions None needed. Anesthesia/Patient Condition Patient Condition Patient is doing well, no complaints, stable vital signs, no apparent adverse anesthesia problems. No complications reported per nursing. D/C home per [facility] Criteria: No TIESHA CORREIA CRNA Nov 29, 2016 15:13
--- NOTE | 2016-11-29 15:43 | Progress Note (SOAP) ---
Subjective Subjective/Events-last exam DANIEL. Pain is controlled however, she complains of severe dysphagia and she cannot even swallow her spit. She denies SOB or chest pain or nausea. she has no new UE pain. she has no numbness or tingling. Objective Exam Vital Signs Date Time Temp Pulse Resp B/P (MAP) Pulse Ox O2 Delivery O2 Flow Rate FiO2 11/29/16 12:00 97.2 67 20 172/72 100 Nasal Cannula 4.00 11/29/16 11:55 70 11/29/16 09:00 Nasal Cannula 4.00 11/29/16 08:00 98.3 62 20 130/62 96 Nasal Cannula 2.00 11/29/16 04:39 97.4 67 16 144/68 99 Nasal Cannula 2.00 11/29/16 00:43 97.4 62 16 155/63 100 Nasal Cannula 2.00 11/28/16 20:52 98 Nasal Cannula 2.00 11/28/16 20:00 97.3 61 20 163/67 100 Room Air 11/28/16 18:46 2.00 11/28/16 17:00 98 Nasal Cannula 2.00 11/28/16 17:00 97.1 60 20 173/63 98 Room Air I & O 11/29/16 07:00 Intake Total 350 ml Output Total 50 ml Balance 300 ml Capillary Refill : Less Than 3 Seconds General Appearance: No Apparent Distress Extremity: Other (5/5 motor frank UE, NVSI, dressings CDI, drain in place, 2/4 DP , PT) Results Lab Laboratory Tests 11/29/16 05:05: White Blood Count 17.6H, Red Blood Count 3.29L, Hemoglobin 9.9L, Hematocrit 31L , Mean Corpuscular Volume 95, Mean Corpuscular Hemoglobin 30, Mean Corpuscular Hemoglobin Concent 32, Red Cell Distribution Width 16.6H, Platelet Count 310, Mean Platelet Volume 12.4H, Neutrophils (%) (Auto) 65, Lymphocytes (%) (Auto) 21 , Monocytes (%) (Auto) 11, Eosinophils (%) (Auto) 3, Basophils (%) (Auto) 1, Neutrophils # (Auto) 11.4H, Lymphocytes # (Auto) 3.7, Monocytes # (Auto) 2.0H, Eosinophils # (Auto) 0.4H, Basophils # (Auto) 0.1, Neutrophils % (Manual) 72, Lymphocytes % (Manual) 18, Monocytes % (Manual) 6, Eosinophils % (Manual) 2, Basophils % (Manual) 0, Band Neutrophils 0, Atypical Lymphocytes 2, Poikilocytosis SLIGHT, Anisocytosis SLIGHT, Target Cells SLIGHT, Sodium Level 137, Potassium Level 4.6, Chloride Level 97L, Carbon Dioxide Level 24, Anion Gap 16H, Blood Urea Nitrogen 18, Creatinine 3.87H, Estimat Glomerular Filtration Rate 11, BUN/Creatinine Ratio 5, Glucose Level 98, Calcium Level 8.7 , Total Bilirubin 1.0, Aspartate Amino Transf (AST/SGOT) 298H, Alanine Aminotransferase (ALT/SGPT) 133H, Alkaline Phosphatase 475H, Total Protein 6.0L , Albumin 3.0L Assessment/Plan Assessment/Plan Assess & Plan/Chief Complaint ASSESSMENT: s/p 3 level ACDF complicated by severe dysphagia PLAN: dysphagia: start IV steroids liver studies per medicine agree with O2 sat monitoring monitor for improvement in swallowing function d/c drain when less than 40 cc Final Diagnosis cervical stenosis Clinical Quality Measures DVT/VTE Risk/Contraindication: Risk Factor Score Per Nursin RFS Level Per Nursing on Admit: 4+=Very High SEE CHRISTINA DO Nov 29, 2016 15:43
[2016-11-29] MEDS: DEXAMETHASONE 4 MG/ML SDV (DECADRON) IV SCH (17:38)
[2016-11-29] MEDS ORDERED: FAMOTIDINE 20 MG (PEPCID) TABLET PO SCH (21:00)
[2016-11-29] MEDS ORDERED: meTOproloL SUCCINATE 50 MG (TOPROL XL) TAB PO ONE (22:10)
[2016-11-29] MEDS: meTOproloL SUCCINATE 50 MG (TOPROL XL) TAB PO SCH (22:14)
[2016-11-30] MEDS: DEXAMETHASONE 4 MG/ML SDV (DECADRON) IV SCH ×2 (00:03→05:30)
[2016-11-30] MEDS: CATHETER FLUSH 10 ML SYR IV PRN ×2 (00:03→05:31)
[2016-11-30] MEDS ORDERED: meTOproloL SUCCINATE 50 MG (TOPROL XL) TAB PO ONE (05:17)
[2016-11-30] MEDS: meTOproloL SUCCINATE 50 MG (TOPROL XL) TAB PO SCH (05:31)
--- NOTE | 2016-11-30 06:12 | Discharge Summary ---
Diagnosis/Chief Complaint Date of Admission Nov 28, 2016 at 10:15 Date of Discharge Discharge Date: Nov 30, 2016 Admission Diagnosis Admission Diagnosis cervical stenosis cervical radiculopathy Discharge Diagnosis cervical stenosis cervical radiculopathy s/p C3-6 ACDF debilitation Reason Hospital Visit cervical stenosis Discharge Summary Hospital Course Hospital Course Patient was brought to [facility] for scheduled ACDF. Postoperatively the patient progressed poorly with PT. She did experience dysphagia, but was able to take liquids and her medications orally. She was given decadron, which improved her dysphagia. Due to her progress and and debilitation, a IRF consult was requested. Patient was discharged to IRF on POD #2 Labs Laboratory Tests 11/28/16 11:24: Prothrombin Time 18.5H, INR Comment 1.6H, Potassium Level 3.3L, Chloride Level 94L, Carbon Dioxide Level 34H, Creatinine 2.95H, Alkaline Phosphatase 180H, Total Protein 6.1L 11/29/16 05:05: Chloride Level 97L, Creatinine 3.87H, Alkaline Phosphatase 475H, Total Protein 6.0L, White Blood Count 17.6H, Red Blood Count 3.29L, Hemoglobin 9.9L, Hematocrit 31L, Red Cell Distribution Width 16.6H, Mean Platelet Volume 12.4H, Neutrophils # (Auto) 11.4H, Monocytes # (Auto) 2.0H, Eosinophils # (Auto) 0.4H, Anion Gap 16H, Aspartate Amino Transf (AST/SGOT) 298H, Alanine Aminotransferase (ALT/SGPT) 133H, Albumin 3.0L Procedures C3-6 ACDF Discharge Physical Examination Allergies: Coded Allergies: Nitrofurantoin Macrocrystal (Unverified Allergy, Unknown, 10/24/16) Sulfa (Sulfonamide Antibiotics) (Unverified Allergy, Unknown, 11/28/16) acetaminophen (Unverified Allergy, Unknown, 11/28/16) benzonatate (Unverified Allergy, Unknown, 10/24/16) codeine (Unverified Allergy, Unknown, 11/28/16) gabapentin (Unverified Allergy, Unknown, 10/24/16) lansoprazole (Unverified Allergy, Unknown, 10/24/16) methenamine (Unverified Allergy, Unknown, 10/24/16) naproxen (Unverified Allergy, Unknown, 10/24/16) nitrofurantoin (Unverified Allergy, Unknown, 10/24/16) pioglitazone HCl (Unverified Allergy, Unknown, 10/24/16) prednisone (Unverified Allergy, Unknown, 10/24/16) promethazine (Unverified Allergy, Unknown, 10/24/16) valdecoxib (Unverified Allergy, Unknown, 10/24/16) zolpidem tartrate (Unverified Allergy, Unknown, 10/24/16) levofloxacin (Unverified Adverse Reaction, Unknown, 10/24/16) tolterodine tartrate (Unverified Adverse Reaction, Unknown, 10/24/16) Uncoded Allergies: MELOLAZONE (Allergy, Unknown, 06/23/14) Vitals & I&Os Vital Signs Date Time Temp Pulse Resp B/P (MAP) Pulse Ox O2 Delivery O2 Flow Rate FiO2 11/30/16 02:44 100 3.00 11/29/16 23:38 98.0 70 20 156/64 Nasal Cannula Discharge Home Medications Reviewed and agree with Discharge Medication list on patient's Discharge Instruction sheet Instructions to Patient/Family Please see electonic discharge instructions given to patient. Clinical Quality Measures DVT/VTE Risk/Contraindication: Risk Factor Score Per Nursin RFS Level Per Nursing on Admit: 4+=Very High EVIE ABDUL Nov 30, 2016 06:12
--- NOTE | 2016-11-30 08:31 | OPERATIVE REPORT ---
PROCEDURE PHYSICIAN: SEE CHRISTINA DATE OF PROCEDURE: 11/28/2016 SURGEON: Dr. Yazan D.O. DERRICK CAR OPERATOR: BETHEL Bloom. This is a medically necessary procedure and engineer first assistant is necessary for retraction of vital neurovascular structures. Without an engineer first assistant, the procedure would not be possible. PREOPERATIVE DIAGNOSES: 1. Cervical stenosis (central, foraminal, bony). 2. Cervical radiculopathy. POSTOPERATIVE DIAGNOSIS: 1. Lumbar spinal stenosis. 2. Cervical radiculopathy. PROCEDURE PERFORMED: 1. C3-4, C4-5, C5-6, ACDF. 2. C3-4, C4-5, C5-6 Application of peek cages. 3. Anterior instrumentation, C3-4, C4-5, C5-6. 4. Use of human allograft for spine. 5. Use of local bone autograft. COMPLICATIONS: None. SPECIMENS SENT: None. DRAIN PLACED: Hemovac. ANESTHESIA: General endotracheal tube anesthesia with local anesthetic. HISTORY OF PRESENT ILLNESS: Carina is a very pleasant 81-year-old female patient of mine with long history of severe neck and bilateral upper extremity pain. She failed conservative measures. She has spinal stenosis on MRI. She understood the risks and benefits of surgery. OPERATION: The patient was identified by name on wrist band and brought to the preoperative holding area. Her operative site was signed, consent was signed. SCDs were placed, neural monitoring was hooked up and antibiotics were started. She was taken operating room theater, placed under general endotracheal tube anesthesia and transferred to the operating room table in the supine position. All bony prominences were well padded. She was prepped and draped in the sterile fashion. A formal timeout was conducted. Antibiotics were started. At this point, a left-sided oblique incision was made over the left medial sternocleidomastoid. Standard anterior cervical approach then took place after I verified my C3-4 level on lateral x-ray. I placed a self retaining retractor, and Conklin distractor pins. I performed a discectomy followed by bilateral foraminotomies and did take down the posterior longitudinal ligament. I then sized and chose the appropriate peek interbody cage, packed with human allograft and seated in the midline position. I repeated this process at the C4-5, C5-6 levels. Once all 3 levels had been decompressed and the discs had been excised and cage had been placed, I chose the appropriate length plate and I placed that plate over the midline position. I then secured the plate with screws in the body of C3, 4, 5 and 6. I then obtained final AP and lateral x-rays. The hardware was in good position. I irrigated the wound. I maintained hemostasis, I placed a deep Hemovac drain alongside the plate. I sewed the drain into place. I then maintained hemostasis, obtained final AP and lateral x-rays and then closed the wound with 3-0 Vicryl, followed by running 3-0 subcuticular stitch. I applied dressings and took the patient in supine position to the PACU where she awoke without incident. She tolerated the procedure well. PLAN: At this time is to admit the patient overnight for IV antibiotics, IV pain control and postop, monitoring. We will get her out of bed on postop day one. She knows to keep her wound clean and dry and change dressings daily. Please note instrumentation utilized for this was [employer] for everything. Also note neural monitoring utilized was SSEPs, EMGs train of fours and motor evoked potentials. Job ID: [id number] Dictated Date: 11/28/2016 15:12:56 Traffic Inspector Date: 11/30/2016 08:21:39 / antonio
[2016-11-30] MEDS ORDERED: PANTOPRAZOLE 40 MG (PROTONIX) TAB PO SCH (09:00)
[2016-12-09] MEDS ORDERED: HYDR-3816 PO (10:44)
[2016-12-09] MEDS ORDERED: BISA5TAB8 PO (10:44)
== END 2016-11-30 06:00 | DRG 472 ==
LOC: 4TH 10:15 → SURG 10:16 → 4TH 16:49
PROVIDERS: ADMIT Orthopaedic Surgery; ATTEND Orthopaedic Surgery
PROC: 0RG20A0 Fusion of 2 or more Cervical Vertebral Joints with Interbody Fusion Device, Anterior Approach, Anterior Column, Open Approach (ICD-10-PCS; principal; 2016-11-28 13:32)
DX: M48.02 Spinal stenosis, cervical region (principal); M54.12 Radiculopathy, cervical region; I12.0 Hypertensive chronic kidney disease with stage 5 chronic kidney disease or end stage renal disease; N18.5 Chronic kidney disease, stage 5; R13.10 Dysphagia, unspecified; E21.3 Hyperparathyroidism, unspecified; I48.91 Unspecified atrial fibrillation; E78.00 Pure hypercholesterolemia, unspecified; E11.22 Type 2 diabetes mellitus with diabetic chronic kidney disease; R94.5 Abnormal results of liver function studies; Z99.2 Dependence on renal dialysis
CPT/HCPCS: 36415; 72040; 80053; 85007; 85027; 85610; 86850; 86900; 86901; 94664; 94760

== ENCOUNTER 2016-11-30 06:05 | Inpatient (IN) | payer MEDICARE, MEDICAID ==
[~2016-11-30] VITALS: Ht 154.9 cm; Wt 75.4 kg
[2016-11-30 06:02] VITALS: BP 175/73
[~2016-11-30 06:05] MED LIST changes: +B2/V1TAB PO
[2016-11-30] MEDS ORDERED: SEVELAMER CARBONATE 800 MG TAB (RENVELA) NON-FORMULARY PO SCH (08:45)
--- NOTE | 2016-11-30 09:17 | ST Dysphagia Evaluation ---
Speech Evaluation-General Medical Diagnosis s/p Cervical Spine Procedure Onset Date: Nov 30, 2016 Therapy Diagnosis Therapy Diagnosis: Oropharyngeal Swallow Grossly WFL Precautions Precautions: Aspiration Precautions/Isolations: Fall Prevention, Standard Precautions Referral Referring Physician: Dr. Jd Car Reason for Referral: Evaluation/Treatment Clinical Bedside Swallowing Evaluation Medical History Pertinent Medical History: Atrial Fib, DM, Diverticulitis, HTN, Renal Insufficiency High Cholesterol Reviewed History: Yes Speech PLF/Current-Dysphagia Prior Level of Function The patient denied swallowing challenges prior to her recent procedure. The patient reports consuming a regular diet with thin liquids at home. Subjective The patient was recently admitted to [facility] following a cervical spine procedure via anterior approach. The patient greeted the clinician appropriately and was agreeable to the dysphagia evaluation on this date. Per patient, she was unable to swallow "anything" the day prior due to discomfort. The patient denied coughing or choking on any consistency she has attempted to consume post-operatively. CXR: 11/21/2016: Improvements in right basilar pleural parenchymal opacity with no adverse development. Cognitive Status Patient Orientation: Person, Place, Time, Situation Oral Motor Skills Dentition: Edentalous Denture Type: Full- Upper & Lower Current Food Consistancy: Regular, Thin Liquids Ability to Follow Directions: Excellent Oral Expression Ability: No Impairment Voice Voice Phonatory-Based Quality: Glottal Castellano Voice Pitch: Normal Voice Loudness: Normal Face Facial Symmetry: Symmetrical Oral-Facial Assessment Oral-Facial Dentition: Normal Labial Seal Description: Normal Smile: Normal Puff Cheeks: Normal Lingual Protrusion: Normal Lingual ROM: Normal Lingual Strength: Normal Pharynx Velopharyngeal Move.: Normal Volitional Dry Swallow: Yes Dysphagia Evaluation Consistencies Presented: Regular, Thin Liquid, Mechanical Soft, Pureed - No oral impairments were noted during the swallowing evaluation. The patient adequately cleared all consistencies from the oral cavity. - No pharyngeal impairments were noted throughout the evaluation. The patient reported intermittent odynophagia dependent "on where the food went down." - Thin Liquid (ice chip, teaspoon, cup sip, straw), puree, mechanical soft, solid: No signs/symptoms of aspiration were demonstrated with any consistency tested. The patient's vocal quality remained clear throughout the evaluation. Dietary Recommendations: Regular Liquid Recommendations: Thin Swallowing Precautions: Alternate Liquids/Solids, Decreased Bolus 1/2 Tsp, Small Bites and Sips, Sitting 90 Degrees 30 Post Intake 1. Due to upper extremity weakness, patient may require assistance feeding throughout meals. Dysphagia Evaluation Summary The patient demonstrated an oropharyngeal swallow function grossly within functional limits. Due to the proximity of her cervical spine procedure ( anterior approach) and recent complaints of dysphagia (11/30/2016), the clinician will follow up with the patient regarding diet tolerance. Speech Short Term Goals Short Term Goals Short Term Goals 1. The patient will demonstrate swallowing strategies, independently, with 90% accuracy. Time Frame-STG: Two Days Speech Retirement Goals Retirement Goals 1. The patient will tolerate the least restrictive diet without signs/symptoms of aspiration or laryngeal penetration. Time Frame: Four Days Speech-Plan Treatment Plan Speech Therapy Treatment Plan: Continue Plan of Care Continued skilled speech pathology to target and monitor swallowing safety. Treatment Duration: Dec 05, 2016 # of days/week One to Three Visits Per Week: One to Three Rehab Potential: Guarded Safety Risks/Education Teaching Recipient: Patient Teaching Methods: Discussion Response to Teaching: Verbalize Understanding, Return Demonstration Education Topics Provided: Results, Recommendations, Swallowing Strategies Time Speech Therapy Time In: 08:20 Speech Therapy Time Out: 08:40 Total Billed Time: 20 Billed Treatment Time 1, ANSELMO LINARES Nov 30, 2016 09:17
[2016-11-30] MEDS: meTOproloL SUCCINATE 50 MG (TOPROL XL) TAB PO SCH (09:30)
[2016-11-30 09:33] LABS: INR 1.7 (0.8-1.4); PROTHROMBIN TIME PATIENT 19.5 SEC (12.2-14.7)
--- NOTE | 2016-11-30 10:27 | PM&R Post Admission Assessment ---
Post Admission Physician Asses The preadmission screen agrees with the post admission assessment that the patient is a good candidate for inpatient rehabilitation. The patient will have a comprehensive program of inpatient rehabilitation with a goal of maximizing level of functional dependence prior to discharge home with [family]. The patient will have PT/OT ninety minutes per day, each discipline, five days a week for gait strengthening, conditioning, balance, ADLs , any patient/family/caregiver training necessary. Speech therapy to do cognitive assessment and treat as indicted. Rehabilitation nursing to assist with bowel, bladder, skin, wound care, medication administration, pain management. Welding Production Supervisor to assist with discharge planning, community reentry. SCD's for DVT prophylaxis. She appears to be well motivated to participate in three hours of therapy a day. She should be able to tolerate three hours of therapy a day from a medical standpoint. She should benefit from the three hours of therapy a day. She has a reasonable discharge plan, reasonable discharge rehabilitation goals and a supportive family. She has various comorbidities that need to be closely monitored with medications and treatments adjusted on a daily basis as needed. These include: ESRD on dialysis TIW A FIB controlled with meds Chronic anticoagulation POST-op resp insufficiency Barriers to discharge for this patient who had been independent prior to this and for her to be modified independent to supervision for ADLs and mobility skills prior to discharge back to [facility], so as to lessen the burden of the caregivers. Risks for this patient include: 1. Fall 2. Fracture 3. DVT 4. Pulmonary embolism 5. Wound infection 6. Skin breakdown 7. Contractures 8. Poorly controlled pain 9. Urinary retention 10. UTI 11. Respiratory infection 12. Aspiration 13. Poorly controlled A FIB 14. SUB or Supratherapeutic INR 15. Worsening 02 dependence Estimated Length of Stay: 2 weeks Prognosis: Rehab prognosis appears good for goal of discharge back to [facility] modified independent to supervision for ADLs and mobility skills. THANG TONG MD Nov 30, 2016 10:27
--- NOTE | 2016-11-30 12:11 | Physical Therapy Evaluation ---
PT Evaluation-General Medical Diagnosis Admission Date Nov 30, 2016 at 06:05 Medical Diagnosis: s/p Cervical Spine Procedure Onset Date: Nov 30, 2016 Therapy Diagnosis Therapy Diagnosis: weakness; abn gait Height/Weight Height (Feet): 5 Height (Inches): 1.00 Weight (Pounds): 171 Weight (Ounces): 7.0 Precautions Precautions/Isolations: Fall Prevention, Standard Precautions, Pressure Ulcer Referral Physician: Josep Reason for Referral: Evaluation/Treatment Medical History Pertinent Medical History: Atrial Fib, DM, Diverticulitis, HTN, Renal Insufficiency Additional Medical History ESRD--dialysis 3x/wk, GI bleed, cervial strain, contusion right hip, fall, lumbar stensosis Current History Current History Admitted for C3-6 anterior cervical decompression and fusion. Reviewed History: Yes Social History Home: Assisted Living Entry Into Home: Level Entry Prior/Core FIM Prior Level of Function Functional [place] Measure 0=Not Assessed/NA 4=Minimal Assistance 1=Total Assistance 5=Supervision or Setup 2=Maximal Assistance 6=Modified [place] 3=Moderate Assistance 7=Complete [place] Bed Mobility: 6 Transfers (B,C,W/C) (FIM): 6 Gait: 6 PT Evaluation-Current Subjective Pt agreeable. Pt verbalizes understanding of plan to coordinate therapy services with dialysis and the importance of starting early each day. Pt does report that she fatigues quickly after dialysis and would prefer to do as much before as possible. Objective Patient Orientation: Person, Place, Time, Situation Problem Solving: Fair Attachments: Oxygen ROM/Strength ROM Upper Extremities limited; refer to OT eval ROM Lower Extremities WFL Strenght Lower Extremities grossly 4/5 throughout. Integumentary/Posture Integumentary refer to nursing notes. Bowel Incontinence: No Bladder Incontinence: No Posture slight forward head. Neuromuscular (Tone, Coordination, Reflexes) intact Sensory Vision: Functional Hearing: Functional Hand Dominance: Right Sensation Right Lower Extremit: Intact Sensation Left Lower Extremity: Intact Transfers Functional [place] Measure 0=Not Assessed/NA 4=Minimal Assistance 1=Total Assistance 5=Supervision or Setup 2=Maximal Assistance 6=Modified [place] 3=Moderate Assistance 7=Complete IndependenceIRFPAI Quality Coding Scale 6 Independent with activity with or without an assistive device 5 Patient requires set up or clean up by helper. Patient completes activity by themselves 4 Supervision or touching assist (CGA). [place] provide cues , steadying assist 3 The helper provides less than half the effort to complete the activity 2 The helper provides more than half the effort to complete the activity 1 Dependent. The helper does all the effort to complete an activity 7 Patient refused to complete or attempt activity 9 The patient did not perform the activity before the current illness or injury 88 Not attempted due to Medical conditions or safety concerns Transfers (B, C, W/C) (FIM): 3 Roll Left to Right (QC): 4 Supine to/from Sit: 3 (asssit with both legs and trunk; HOB elevated) Sit to/from Stand: 4 (CGA for safety) Sit to Lying (QC): 4 Lying to Sitting/Side of Bed(Q: 4 Sit to Stand (QC): 4 Chair/Epa-sf-[facility]olmc Xfer(QC): 4 Car Transfer (QC): 4 Pt needs light assist with all functional transfers at this time. Cervical collar makes bed mobility difficult Gait Does the Patient Walk?: Yes Mode of Locomotion: Walk Anticipated Mode of Locomotion: Walk Gait (FIM): 2 Distance (FIM): 1=up to 49 ft Walk 10 feet (QC): 4 Walk 50 ft with 2 Turns(QC): 88 Walk 150 ft (QC): 88 Walking 10ft/uneven surface-QC: 88 Distance: 40 ft and 30 ft Gait Level of Assist: 4 Gait Assistive Device: FWW Comments/Gait Description slow gait and tends to keep head down. Wheelchair Training Does the Pt Use a Wheelchair?: No Stairs Stairs (FIM): 0 (unsafe to attempt due to functional weakness post dialysis) 1 Step (curb) (QC): 88 4 Steps (QC): 88 12 Steps (QC): 88 Balance Sitting Static: Good Sitting Dynamic: Fair Standing Static: Fair Standing Dynamic: Fair Picking up an Object (QC): 88 (restriced due to cervical surgery) Treatment Transfer training with sit to from stand with skilled cues for sequencing and safety; worked on bed mobility as well. Co treat with OT [id number]: Co treat indicated due to need for skilled cues for functional transfers and mobility whilst OT addressed self care and ADL's; sit to from stand several times from the toilet with CGa and cues for hand placement and safety. Gait with FWW as well with OT addressing safety and cognitive interaction and PT addressing safe gait in montes and in room. Pt in chair post treatment with needs. met. Assessment/Needs Presents with increased need for functional transfers and gait due to recent surgery and impaired functional strength and functional activity tolerance. She is a good candidate for skilled PT intervention and expect to make good gains. Limitation may be fatigue post dialysis and ability to achieve therapy time due to timing of her dialysis--she will need to leave each day at 930 and wont return until approx 1430. Howver, she will benefit from the aggressive therapy services as she must care for herself to return to an LONG TERM. Rehab Potential: Fair PT Short Term Goals Short Term Goals Time Frame: Dec 07, 2016 Transfers (B,C,W/C) (FIM): 4 Gait (FIM): 4 Distance (FIM): 3=150 ft Gait Assistive Device: FWW PT Senior Living Goals Intensive Care Medicine Specialist Goals PT Intensive Care Medicine Specialist Goals Time Frame: December 16, 2016 Transfers (B,C,W/C) (FIM): 6 Sit to Lying (QC): 6 Lying-Sitting on Side/Bed(QC): 6 Sit to Stand (QC): 6 Roll Left to Right (QC): 6 Chair/Jwn-jr-Uxhjp Xfer(QC): 6 Car Transfer (QC): 5 Does the Patient Walk: Yes Gait (FIM): 6 Gait distance (FIM): 3=150 ft Walk 10 feet (QC): 6 Walk 10ft-Uneven Surface(QC): 6 Walk 50ft with 2 Turns (QC): 6 Walk 150 ft (QC): 6 Gait Assistive Device: FWW Does the Pt use WC or Scooter?: No Stairs (FIM): 2 # of Steps: 4 1 Step (curb) (QC): 5 4 Steps (QC): 5 12 Steps (QC): 88 Picking up an Object (QC): 88 PT Plan Problem List Problem List: Activity Tolerance, Functional Strength, Safety, Balance, Gait, Transfer, Bed Mobility Treatment/Plan Treatment Plan: Continue Plan of Care Treatment Plan: Bed Mobility, Education, Functional Activity Franco, Functional Strength, Group Therapy, Gait, Safety, Therapeutic Exercise, Transfers Treatment Duration: December 16, 2016 # of days/week 5-6 Visits Per Week: 10-15 Minutes/Day (M-F): 60-90 Minutes/Day (Sat/[place]): prn Pt/Family Agrees w/Plan: Yes Safety Risks/Education Patient Education: Transfer Techniques, Safety Issues Teaching Recipient: Patient Teaching Methods: Demonstration, Discussion Response to Teaching: Reinforcement Needed Discharge Recommendations Therapy D/C Recommendations: Physical Therapy Home Care Time/GCodes Time In: 745 Time Out: 820 Total Billed Treatment 745-820 visit EVM 15 and FA 10 [phone] visit; FA [id number] co treat with OT visit FA 35 JAVI LEONG PT Nov 30, 2016 12:11
--- NOTE | 2016-11-30 12:38 | HISTORY AND PHYSICAL ---
DATE OF SERVICE: CHIEF COMPLAINT: Difficulty with walking. HISTORY OF PRESENT ILLNESS: The patient is a 81-year-old female who had been modified independent for ambulation with a walker in an assisted living facility but developed increasing weakness in her arms and legs felt to be due to cervical spine stenosis. She underwent decompression and fusion with Dr. Hand orthospdonnell, at [facility] on 11/28 and therapy was begun. The patient was felt to be appropriate for inpatient rehabilitation unit and she is thus transferred. Currently she requires assistance for ADLs, mobility skills. She has been seen by speech therapy already to check on her swallowing, and they felt that with extra time she could remain on her regular consistency thin liquid diet. She is on a modified diet due to her end-stage renal disease. She has been on dialysis 3 times a week for the past 10 years. She is also chronically anticoagulated for atrial fibrillation. Her INR today is 1.7. She is reported to be continent of bowel. She is to wear a cervical collar when up. She is being followed by hospitalist service in lieu of Dr. Ledezma, PCP at [facility]. PAST MEDICAL HISTORY: Atrial fibrillation, end-stage renal disease. PAST SURGICAL HISTORY: As per above. ALLERGIES: NITROFURANTOIN, SULFA, CODEINE, GABAPENTIN, LEVAQUIN, NAPROXEN, PREDNISONE, MULTIPLE ALLERGIES AND INTOLERANCES. PLEASE SEE MEDICAL RECORDS. FAMILY HISTORY: Noncontributory. SOCIAL HISTORY: Has lived at assisted living facility in [place] for several years. She is . She has a friend living in the area. REVIEW OF SYSTEMS: A 10-point review of systems is significant for weakness, incisional pain, irregular heartbeat. MEDICATIONS: 1. Pepcid 20 mg p.o. each day at bedtime. 2. Lipitor 5 mg p.o. each day at bedtime. 3. Sensipar 30 mg p.o. each day at bedtime. 4. Coumadin 5 mg p.o. each day at bedtime. 5. Renvela 3200 mg p.o. t.i.d. with meals and 1600 mg p.o. b.i.d. with snacks. 6. Toprol-XL 50 mg p.o. daily. 7. Protonix 40 mg p.o. daily. 8. Dulcolax suppository 10 mg p.r.n. constipation. 9. Dulcolax tablets 5 mg 1-2 tablets p.o. b.i.d. p.r.n. constipation. 10. Lortab 7.5 1 tablet p.o. q. 4 hours p.r.n. pain. PHYSICAL EXAMINATION: Significant for a pleasant female appearing her stated age, alert and oriented, in no acute distress. VITAL SIGNS: She is afebrile, pulse is 71 regular, respirations 18, blood pressure 175/73, O2 sat 100% on 3 liters O2 by nasal cannula. HEENT: Vision, speech, hearing grossly intact. No oral lesion is noted. NECK: Supple, nontender, anterior left incision site covered with island dressing. No drainage noted. HEART: Regular rhythm. LUNGS: Clear. ABDOMEN: Soft, nontender, bowel sounds present. EXTREMITIES: No leg edema, no calf tenderness. MUSCULOSKELETAL: The patient has functional active range of motion of all 4 extremities. NEUROLOGIC: She has generalized weakness. Sensation is grossly intact to touch. Cognition intact. Swallow intact. She has a mild gait imbalance and she is min to mod assist for transfers, bed mobility and ambulation short distances with a walker. IMPRESSION: 1. Ambulatory dysfunction secondary to cervical spine stenosis with associated radiculopathy, weakness, status post decompression C3-6, anterior cervical discectomy and fusion, Dr. Hand, [facility]. 2. End-stage renal disease on dialysis for many years 3 times a week, to have dialysis this afternoon. 3. Atrial fibrillation controlled with medication. 4. Chronic anticoagulation. PLAN: 1. The patient will have a comprehensive program of in-patient rehabilitation with goal of maximizing level of function independence. Plan is to discharge her back to assisted living facility at prior level of function or better. The patient will have PT and OT, 90 minutes per day, each discipline 5 days a week for gait, strengthening, conditioning, balance, ADLs and energy conservation, and any patient, family, caregiver training necessary, any adaptive equipment and training necessary. 2. Speech therapy has already done assessment and signed off. 3. Rehabilitation nursing to assist with bowel, bladder, skin and wound care, medication administration, pain management. 4. director of services to assist with discharge planning, community reentry. 5. RT to assist with O2 administration and wean as able. 6. Followup with hospitalist service and Dr. Hand, orthospine as per their schedule. Daily INR and adjust Coumadin as necessary. 7. Therapy with cardiac, spine and fall precautions. 8. Continue with cervical collar when up. ESTIMATED LENGTH OF STAY: Two weeks. PROGNOSIS: Rehab prognosis appears good for a goal of discharging back to assisted living facility at prior level of function or better, hopefully modified independent for mobility and modified independent to standby assist for basic ADLs. DIET: Heart healthy. CODE STATUS: Full code. Job ID: [id number] DocumentID: [id number] Dictated Date: 11/30/2016 10:22:25 Custom Applicator Date: 11/30/2016 11:16:37 Dictated By: THANG TONG MD MTDD
--- NOTE | 2016-11-30 12:48 | Occupational Therapy Eval ---
OT Evaluation-General/PLF Medical Diagnosis Admission Date Nov 30, 2016 at 06:05 Medical Diagnosis: s/p Cervical Spine Procedure Onset Date: Nov 30, 2016 Therapy Diagnosis Therapy Diagnosis: impaired self care skills Height/Weight Height (Feet): 5 Height (Inches): 1.00 Weight (Pounds): 171 Weight (Ounces): 7.0 Precautions Precautions/Isolations: Fall Prevention, Standard Precautions, Pressure Ulcer Safety Interventions: None Referral Physician: Josep Medical History Pertinent Medical History: Atrial Fib, DM, Diverticulitis, HTN, Renal Insufficiency Additional Medical History ESRD, GI bleed, cervical strain, contusion right hip, lumbar stenosis. Current History C3-C6 Anterior cervical decompression and fusion Reviewed History: Yes Social History Home: Assisted Living Entry Into Home: Level Entry ADL-Prior Level of Function ADL PLOF Comments Pt reports she was mostly independent, but received assist as needed. Pt had increased difficulty and requires increased assistance in days leading up to surgery. Used walker for mobility. DME/Equipment: Bath Chair, Grab Bars, Shower OT Current Status Subjective Pt sitting EOB with PT present, agrees to therapy. Mental Status/Objective Patient Orientation: Person, Place Current Glasses/Contacts: Yes Hearing Aids: Yes Hand Dominance: Right Upper Extremity ROM Pt has very minimal active shoulder ROM. Able to tolerate PROM. Right elbow flexion WFL, but left mildly decreased. Upper Extremity Coordination Decreased Upper Extremity Strength Impaired bilateral UE ADL-Treatment ADL-Current Pt eating while seated EOB. Pt able to hold spoon, but unable to adequately bring to mouth secondary to decreased ROM and strength. Pt requires maximal assistance for feeding. Pt able to hold cup and drink from straw with minimal assistance. Pt washed face with moderate assistance. Unable to bring washcloth to forehead to complete task. Pt requires max assist to comb hair. Pt sit to stand with CGA assist. Transfer to chair with CGA and cues for safety using FWW. Pt requires total assist to doff/don footwear. Nursing reports pt ready to leave for dialysis. Pt transferred to car with minimal assistance to get left foot into car. Functional [place] Measure 0=Not Assessed/NA 4=Minimal Assistance 1=Total Assistance 5=Supervision or Setup 2=Maximal Assistance 6=Modified [place] 3=Moderate Assistance 7=Complete IndependenceIRFPAI Quality Coding Scale 6 Independent with activity with or without an assistive device 5 Patient requires set up or clean up by helper. Patient completes activity by themselves 4 Supervision or touching assist (CGA). [place] provide cues , steadying assist 3 The helper provides less than half the effort to complete the activity 2 The helper provides more than half the effort to complete the activity 1 Dependent. The helper does all the effort to complete an activity 7 Patient refused to complete or attempt activity 9 The patient did not perform the activity before the current illness or injury 88 Not attempted due to Medical conditions or safety concerns Eating (FIM): 2 Eating (QC): 2 Grooming (FIM): 2 On/Off Footwear (QC): 1 Education OT Patient Education: Rehab process Teaching Recipient: Patient Teaching Methods: Discussion Response to Teaching: Reinforcement Needed OT Short Term Goals Short Term Goals Time Frame: Dec 07, 2016 Eating(FIM): 3 Grooming(FIM): 3 Upper Body Dressing(FIM): 3 Toileting(FIM): 2 Additional Short Term Goals: 1-Demonstrate ADL Tasks, 2-Verbalize Understanding , 3-ImproveStrength/Franco 1=Demonstrate adherence to instructed precautions during ADL tasks. 2=Patient will verbalize/demonstrate understanding of assistive devices/ modifications for ADL. 3=Patient will improve strength/tolerance for activity to enable patient to perform ADL's. OT Mcfp Goals Return To Service Inspector Goals Time Frame: December 21, 2016 Eating (FIM): 5 Eating (QC): 5 Groomin Oral Hygiene (QC): 5 Bathing(FIM): 4 Shower/Bathe Self (QC): 3 Upper Body Dressing(FIM): 4 Upper Body Dressing (QC): 3 Lower Body Dressing(FIM): 4 Lower Body Dressing (QC): 3 On/Off Footwear (QC): 3 Toileting(FIM): 4 Toileting Hygiene (QC): 3 Toilet/Commode Transfer(FIM): 6 Toilet/Commode Transfer (QC): 6 Shower Transfer(FIM): 5 Additional Goals: 1-Demonstrate ADL Tasks, 2-Verbalize Understanding, 3- ImproveStrength/Franco 1=Demonstrate adherence to instructed precautions during ADL tasks. 2=Patient will verbalize/demonstrate understanding of assistive devices/ modifications for ADL. 3=Patient will improve strength/tolerance for activity to enable patient to perform ADL's. OT Education/Plan Problem List/Assessment Assessment: Decreased Activ Tolerance, Decreased UE Strength, Dependent Transfers, Impaired Coordination, Impaired Self-Care Skills Pt to benefit from skilled OT intervention for ADL training, transfers, strengthening, and safety education to maximize level of function and allow return to assisted living facility. Discharge Recommendations Plan/Recommendations: Continue POC Treatment Plan/Plan of Care Treatment,Training & Education: Yes Patient would benefit from OT for education, treatment and training to promote independence in ADL's, mobility, safety and/or upper extremity function for ADL' s. Plan of Care: ADL Retraining, Functional Mobility, Group Exercise/Act as Ind, UE Funct Exercise/Act, UE Neuromus Re-Ed/Coord Treatment Duration: December 21, 2016 # of days/week 5-6 Visits Per Week: 10-12 Minutes/Day (M-F): 60-90 Minutes/Day (Sat/[place]): PRN Rehab Potential: Fair Time/GCodes Start Time: 08:50 Stop Time: 09:30 Total Time Billed (hr/min): 40 Billed Treatment Time 1 visit, EVM(15minutes), ADLx2(25minutes) ANGELY LONDON OT Nov 30, 2016 12:48
--- NOTE | 2016-11-30 15:21 | Occupational Ther Daily Note ---
OT Current Status-Daily Note Subjective Pt had just gotten back from dialysis. Pt agreed to therapy. Pt c/o fatigue and was ready to get comfortable. Mental Status/Objective Functional [place] Measure 0=Not Assessed/NA 4=Minimal Assistance 1=Total Assistance 5=Supervision or Setup 2=Maximal Assistance 6=Modified [place] 3=Moderate Assistance 7=Complete [place] ADL-Treatment PT/OT cotreated during treatment session. OT focused on toileting and grooming ADLs. PT focused on transfers, ambulation, static/dynamic standing balance during functional skills. Pt tended to ask for a lot of assistance with completing each task. Pt required reminders to keep on neck brace until either she was sitting or lying down. After therapy, pt sitting in recliner with feet elevated and call light/phone in reach. POPPED CORN OVEN ATTENDANT took over care of pt. All needs met in room. Functional [place] Measure 0=Not Assessed/NA 4=Minimal Assistance 1=Total Assistance 5=Supervision or Setup 2=Maximal Assistance 6=Modified [place] 3=Moderate Assistance 7=Complete IndependenceIRFPAI Quality Coding Scale 6 Independent with activity with or without an assistive device 5 Patient requires set up or clean up by helper. Patient completes activity by themselves 4 Supervision or touching assist (CGA). [place] provide cues , steadying assist 3 The helper provides less than half the effort to complete the activity 2 The helper provides more than half the effort to complete the activity 1 Dependent. The helper does all the effort to complete an activity 7 Patient refused to complete or attempt activity 9 The patient did not perform the activity before the current illness or injury 88 Not attempted due to Medical conditions or safety concerns Lower Body Dressing (FIM): 2 (Pt required assistance to don/doff pants, socks and underwear then pulled up legs and front. SZYMANSKI had to hike over hips.) Lower Body Dressing (QC): 2 (Pt required assistance to don/doff pants, socks and underwear then pulled up legs and front. SZYMANSKI had to hike over hips.) Toileting (FIM): 2 (Assist to manipulate clothing and cleanse buttocks.) Toileting Hygiene (QC): 2 (Assist to manipulate clothing and cleanse buttocks.) Toilet/Commode Transfer (FIM): 4 (Using FWW, BSC and grabbars pt required min A and cues to position self and hands for safe transfer.) Toilet Transfer (QC): 3 (Using FWW, BSC and grabbars pt required min A and cues to position self and hands for safe transfer.) OT Short Term Goals Short Term Goals Time Frame: Dec 07, 2016 Eating(FIM): 3 Grooming(FIM): 3 Upper Body Dressing(FIM): 3 Toileting(FIM): 2 Additional Short Term Goals: 1-Demonstrate ADL Tasks, 2-Verbalize Understanding , 3-ImproveStrength/Franco 1=Demonstrate adherence to instructed precautions during ADL tasks. 2=Patient will verbalize/demonstrate understanding of assistive devices/ modifications for ADL. 3=Patient will improve strength/tolerance for activity to enable patient to perform ADL's. OT Fiberglass Finisher Goals Fiberglass Finisher Goals Time Frame: December 21, 2016 Eating (FIM): 5 Eating (QC): 5 Groomin Oral Hygiene (QC): 5 Bathing(FIM): 4 Shower/Bathe Self (QC): 3 Upper Body Dressing(FIM): 4 Upper Body Dressing (QC): 3 Lower Body Dressing(FIM): 4 Lower Body Dressing (QC): 3 On/Off Footwear (QC): 3 Toileting(FIM): 4 Toileting Hygiene (QC): 3 Toilet/Commode Transfer(FIM): 6 Toilet/Commode Transfer (QC): 6 Shower Transfer(FIM): 5 Additional Goals: 1-Demonstrate ADL Tasks, 2-Verbalize Understanding, 3- ImproveStrength/Franco 1=Demonstrate adherence to instructed precautions during ADL tasks. 2=Patient will verbalize/demonstrate understanding of assistive devices/ modifications for ADL. 3=Patient will improve strength/tolerance for activity to enable patient to perform ADL's. OT Education/Plan Problem List/Assessment Pt to benefit from skilled OT intervention for ADL training, transfers, strengthening, and safety education to maximize level of function and allow return to assisted living facility. Discharge Recommendations Plan/Recommendations: Continue POC Treatment Plan/Plan of Care Patient would benefit from OT for education, treatment and training to promote independence in ADL's, mobility, safety and/or upper extremity function for ADL' s. Plan of Care: ADL Retraining, Functional Mobility, Group Exercise/Act as Ind, UE Funct Exercise/Act, UE Neuromus Re-Ed/Coord Treatment Duration: December 21, 2016 Visits Per Week: 10-12 Minutes/Day (M-F): 60-90 Minutes/Day (Sat/[place]): PRN Rehab Potential: Fair Time/GCodes Start Time: 14:30 Stop Time: 13:05 Total Time Billed (hr/min): 35 Billed Treatment Time 1 visit-FA 2 (35 min) co-treat with PT [id number] (35 min) JAVI YOUNG Nov 30, 2016 15:21
--- NOTE | 2016-11-30 15:30 | ST Cognitive Linguistic Eval ---
Speech Evaluation-General Medical Diagnosis s/p Cervical Spine Procedure Onset Date: Nov 30, 2016 Therapy Diagnosis Therapy Diagnosis: Cognitive Linguistic Skills WNL Precautions Precautions: Aspiration Precautions/Isolations: Fall Prevention, Standard Precautions, Pressure Ulcer Referral Referring Physician: Dr. Jd Car Reason for Referral: Evaluation/Treatment Cognitive Screen Medical History Pertinent Medical History: Atrial Fib, DM, Diverticulitis, HTN, Renal Insufficiency Reviewed History: Yes Speech PLF-Current Status Prior Level of Function The patient denied cognitive, speech, or language deficits prior to admission. Subjective The patient was recently admitted to [facility] following an anterior cervical spine procedure. The patient was agreeable to participation in the cognitive screen. Language Eval: Auditory Comprehends Simple Yes/No Ques: Functional Indent/Objects Multiple [place]: Functional Ident/Pics in Multiple Hernandez: Functional Follows 1-Step Commands: Functional Follows Complex Directions: Mild (Repetition required for increased accuracy.) Follows General Conversations: Functional Language Eval: Verbal Language Completes Spontaneous Greeting: Functional Produces Auto, Serial Info: Functional Imitates Simple Words/Phrases: Functional Word Finding: Functional Requests Basic Needs: Functional States Basic Personal Info: Functional Cognitive Patient Orientation The patient was oriented to name, location, month, day of week, date, and year. Objective Cognitive Domain Attention: WNL Memory: WNL Problem Solving: Functional Objective Impression The patient demonstrated cognitive linguistic skills grossly within normal limits and appropriate for completion of ADL's. Communication/Social Cognition Comprehension: 5 Expression: 5 Social Interaction: 5 Problem Solvin Memory: 5 Speech Patient Assess Expression of Ideas/Wants: Expression (4) Understanding [place] Content: Understands (4) Brief Interview-Mental Status: Yes Repetition of Three Words: Three (3) Temporal Orientation: Year: Correct (3) Temporal Orientation: Month: Accurate within 5 days(2) Temporal Orientation: Day: Correct (1) Recall : Wear to say "Sock": Yes, no cue required (2) Recall : Color: Yes, no cue required (2) Recall : Bed: Yes, no cue required (2) Speech Short Term Goals Short Term Goals Short Term Goals 1. The patient will demonstrate swallowing strategies, independently, with 90% accuracy. Time Frame-STG: Two Days Speech Rack Puller Goals Long-Term Goals 1. The patient will tolerate the least restrictive diet without signs/symptoms of aspiration or laryngeal penetration. Time Frame: Four Days Speech-Plan Treatment Plan Speech Therapy Treatment Plan: Discontinue ST Evaluation (cognition), only. Below plan of care is regarding dysphagia. Treatment Duration: Dec 05, 2016 # of days/week One to Three Visits Per Week: One to Three Minutes/Day (M-F): 30 Rehab Potential: Fair Safety Risks/Education Teaching Recipient: Patient Teaching Methods: Discussion Response to Teaching: Verbalize Understanding Education Topics Provided: Plan of Care, Recommendations, Results Time Speech Therapy Time In: 15:05 Speech Therapy Time Out: 15:20 Total Billed Time: 15 Billed Treatment Time 1, ANSELMO ELAINE Nov 30, 2016 15:30
[2016-11-30] MEDS: SEVELAMER CARBONATE 800 MG TAB (RENVELA) NON-FORMULARY PO SCH ×3 (17:34→17:42)
[2016-11-30] MEDS: warFARin 5 MG (COUMADIN) TAB PO SCH (17:41)
[2016-11-30] MEDS: PANTOPRAZOLE 40 MG (PROTONIX) TAB PO SCH (17:41)
[2016-11-30 18:14] VITALS: BP 176/62
[2016-11-30] MEDS: FAMOTIDINE 20 MG (PEPCID) TABLET PO SCH (20:32)
[2016-11-30] MEDS: ATORVASTATIN 10 MG (LIPITOR) TABLET PO SCH (20:33)
[2016-11-30] MEDS: CINACALCET 30 MG PO SCH (20:33)
[2016-12-01 05:27] VITALS: BP 168/63
[2016-12-01] MEDS: PANTOPRAZOLE 40 MG (PROTONIX) TAB PO SCH (06:43)
[2016-12-01] MEDS: SEVELAMER CARBONATE 800 MG TAB (RENVELA) NON-FORMULARY PO SCH ×3 (06:43→17:48)
[2016-12-01] MEDS: HYDROcodone/APAP 7.5 MG/325 MG (LORTAB, LORCET PLUS) TABLET PO PRN (08:09)
[2016-12-01] MEDS: meTOproloL SUCCINATE 50 MG (TOPROL XL) TAB PO SCH (08:09)
--- NOTE | 2016-12-01 08:43 | Therapy Team Discharge Summary ---
Therapy Discharge Summary Discharge Recommendations Date of Discharge Therapy D/C Recommendations: Physical Therapy Home Care Speech-Language Pathology The patient was recently admitted to [facility] following a cervical spine procedure. Upon admission, the patient reported symptoms of dysphagia stating "I just can't swallow." Following evaluation, the patient demonstrated adequate oropharyngeal swallowing, however, the clinician wished to monitor her swallowing function for 24 hours to ensure she continued adequate PO intake with the absence of signs/symptoms of aspiration. Diet analysis and re-assessment was completed on this date. The patient continues PO intake without signs/symptoms of aspiration, all dysphagia goals met. At this time, Speech Pathology will sign off and discharge patient. PT Chcf Goals Chcf Goals PT Manager Intern Goals Time Frame: December 16, 2016 Transfers (B,C,W/C) (FIM): 6 Roll Left to Right (QC): 6 Sit to Lying (QC): 6 Lying-Sitting on Side/Bed(QC): 6 Sit to Stand (QC): 6 Chair/Oni-xm-Bibof Xfer(QC): 6 Car Transfer (QC): 5 Does the Patient Walk: Yes Gait (FIM): 6 Gait distance (FIM): 3=150 ft Walk 10 feet (QC): 6 Walk 10ft-Uneven Surface(QC): 6 Walk 50ft with 2 Turns (QC): 6 Walk 150 ft (QC): 6 Gait Assistive Device: FWW Does the Pt use WC or Scooter?: No Stairs (FIM): 2 # of Steps: 4 1 Step (curb) (QC): 5 4 Steps (QC): 5 12 Steps (QC): 88 Picking up an Object (QC): 88 OT Chcf Goals Manager Intern Goals Time Frame: December 21, 2016 Eating (FIM): 5 Eating (QC): 5 Oral Hygiene (QC): 5 Grooming(FIM): 5 Bathing(FIM): 4 Shower/Bathe Self (QC): 3 Upper Body Dressing(FIM): 4 Upper Body Dressing (QC): 3 Lower Body Dressing(FIM): 4 Lower Body Dressing (QC): 3 On/Off Footwear (QC): 3 Toileting(FIM): 4 Toileting Hygiene (QC): 3 Toilet/Commode Transfer(FIM): 6 Toilet/Commode Transfer (QC): 6 Shower Transfer(FIM): 5 Additional Goals: 1-Demonstrate ADL Tasks, 2-Verbalize Understanding, 3- ImproveStrength/Franco 1=Demonstrate adherence to instructed precautions during ADL tasks. 2=Patient will verbalize/demonstrate understanding of assistive devices/ modifications for ADL. 3=Patient will improve strength/tolerance for activity to enable patient to perform ADL's. Speech Manager Intern Goals Chcf Goals 1. The patient will tolerate the least restrictive diet without signs/symptoms of aspiration or laryngeal penetration. MET 12/01/16 Time Frame: Four Days ANSELMO PHILLIPS Dec 01, 2016 08:43
--- NOTE | 2016-12-01 08:44 | Speech Therapy Daily Note ---
Speech Daily Progress Note Subjective The patient was seated upright on the edge of bed for the treatment session. The patient greeted the clinician and was agreeable to participation in diet consistency re-analysis. Objective The patient was agreeable to participate in trials of thin liquid (water via straw) and puree (pudding). Per patient, she recently completed breakfast therefore is not interested in consuming much PO for the clinician. No signs/ symptoms of aspiration were demonstrated with any consistency tested. The patient's vocal quality remained clear and she denied the presence of odynophagia. Assessment Assessment Current Status: Good Progress Treatment Plan Discontinue ST, Goals Met Communication Comprehension: 4 Expression: 5 Social Cognition Social Interaction: 5 Problem Solvin Memory: 5 Speech Short Term Goals Short Term Goals Short Term Goals 1. The patient will demonstrate swallowing strategies, independently, with 90% accuracy. Time Frame-STG: Two Days Speech Mcc Goals Law Enforcement Director Goals 1. The patient will tolerate the least restrictive diet without signs/symptoms of aspiration or laryngeal penetration. MET 12/01/16 Time Frame: Four Days Speech-Plan Treatment Plan Speech Therapy Treatment Plan: Discontinue ST, Goals Met Discontinue Dysphagia Treatment (goals met) Treatment Duration: Dec 05, 2016 # of days/week One to Three Visits Per Week: One to Three Minutes/Day (M-F): 30 Rehab Potential: Fair Safety Risks/Education Teaching Recipient: Patient Teaching Methods: Discussion Response to Teaching: Verbalize Understanding Education Topics Provided: Plan of Care, Results Time Speech Therapy Time In: 08:15 Speech Therapy Time Out: 08:45 Total Billed Time: 30 Billed Treatment Time 1, ANSELMO SHELTON Dec 01, 2016 08:44
[2016-12-01 09:08] LABS: BASOPHILS % (AUTO) 0 % (0-10); EOSINOPHILS # (AUTO) 0.3 10^3/uL (0.0-0.3); EOSINOPHILS % (AUTO) 2 % (0-10); LYMPHOCYTES # (AUTO) 3.9 X 10^3 (1.0-4.0); LYMPHOCYTES % (AUTO) 22 % (12-44); MEAN CORPUSCULAR HEMOGLOBIN 30 PG (25-34); MEAN CORPUSCULAR HGB CONC 31 G/DL (32-36); MEAN CORPUSCULAR VOLUME 95 FL (80-99); MEAN PLATELET VOLUME 11.9 FL (7.4-10.4); MONOCYTES # (AUTO) 2.5 X 10^3 (0.0-1.0); MONOCYTES % (AUTO) 15 % (0-12); NEUTROPHILS # (AUTO) 10.6 X 10^3 (1.8-7.8); NEUTROPHILS % (AUTO) 61 % (42-75); PLATELET COUNT 392 10^3/uL (130-400); RED CELL DISTRIBUTION WIDTH 16.7 % (10.0-14.5); WHITE BLOOD COUNT 17.3 10^3/uL (4.3-11.0)
[2016-12-01 09:15] LABS: INR 1.7 (0.8-1.4)
[2016-12-01 09:28] LABS: ALANINE AMINOTRANSFERASE < 6 U/L (0-55); ALBUMIN 3.4 G/DL (3.2-4.5); ANION GAP 12 MMOL/L (5-14); ASPARTATE AMINO TRANSFERASE 67 U/L (5-34); BILIRUBIN,TOTAL 0.5 MG/DL (0.1-1.0); BLOOD UREA NITROGEN 26 MG/DL (7-18); BUN/CREATININE RATIO 7; CALCIUM 9.3 MG/DL (8.5-10.1); CARBON DIOXIDE 33 MMOL/L (21-32); CHLORIDE 92 MMOL/L (98-107); CREATININE SERUM 3.65 MG/DL (0.60-1.30); GFR ESTIMATED 12; GLUCOSE 133 MG/DL (70-105); POTASSIUM 3.4 MMOL/L (3.6-5.0); SODIUM 137 MMOL/L (135-145); TOTAL PROTEIN 6.5 G/DL (6.4-8.2)
--- NOTE | 2016-12-01 11:22 | Occupational Ther Daily Note ---
OT Current Status-Daily Note Subjective Pt sitting up in recliner. Pt c/o pain and that her buttocks and back, nrsg already notified. Pt agreed to therapy. Mental Status/Objective Patient Orientation: Person, Place, Time, Situation Functional [place] Measure 0=Not Assessed/NA 4=Minimal Assistance 1=Total Assistance 5=Supervision or Setup 2=Maximal Assistance 6=Modified [place] 3=Moderate Assistance 7=Complete [place] Attachments: Oxygen ADL-Treatment Functional [place] Measure 0=Not Assessed/NA 4=Minimal Assistance 1=Total Assistance 5=Supervision or Setup 2=Maximal Assistance 6=Modified [place] 3=Moderate Assistance 7=Complete IndependenceIRFPAI Quality Coding Scale 6 Independent with activity with or without an assistive device 5 Patient requires set up or clean up by helper. Patient completes activity by themselves 4 Supervision or touching assist (CGA). [place] provide cues , steadying assist 3 The helper provides less than half the effort to complete the activity 2 The helper provides more than half the effort to complete the activity 1 Dependent. The helper does all the effort to complete an activity 7 Patient refused to complete or attempt activity 9 The patient did not perform the activity before the current illness or injury 88 Not attempted due to Medical conditions or safety concerns Eating (FIM): 2 Grooming (FIM): 2 Oral Hygiene (QC): 2 Lower Body Dressing (QC): 2 Other Treatment Pt c/o of pain and not being able to be comfortable in chair then breakfast came. Pt stated that she couldn't eat her breakfast and someone needed to feed her. Then decided that she would feel better on the EOB to eat. Pt transferred to EOB with CGA using FWW. Pt shifting attempting to get comfortable then decided that she had to use the bathroom. SZYMANSKI applied neck brace. Pt ambulated to the bathroom using FWW with CGA. Transferred to toilet with CGA using FWW, grabbars and BSC. Pt unable to have a BM. Unable to cleanse buttocks by self. Pt ambulated to EOB with FWW. Max A to don briefs. Pt able to hold cup up to mouth using straw. Assist to lift L UE to place dentures in mouth. Dependent with feeding at this time. Pt took increased time to complete all tasks. After therapy, nrsg in room with pt to continue feeding pt breakfast. Call light/phone in reach. All needs met in room. OT Short Term Goals Short Term Goals Time Frame: Dec 07, 2016 Eating(FIM): 3 Grooming(FIM): 3 Upper Body Dressing(FIM): 3 Toileting(FIM): 2 Additional Short Term Goals: 1-Demonstrate ADL Tasks, 2-Verbalize Understanding , 3-ImproveStrength/Franco 1=Demonstrate adherence to instructed precautions during ADL tasks. 2=Patient will verbalize/demonstrate understanding of assistive devices/ modifications for ADL. 3=Patient will improve strength/tolerance for activity to enable patient to perform ADL's. OT Residential Goals Residential Goals Time Frame: December 21, 2016 Eating (FIM): 5 Eating (QC): 5 Groomin Oral Hygiene (QC): 5 Bathing(FIM): 4 Shower/Bathe Self (QC): 3 Upper Body Dressing(FIM): 4 Upper Body Dressing (QC): 3 Lower Body Dressing(FIM): 4 Lower Body Dressing (QC): 3 On/Off Footwear (QC): 3 Toileting(FIM): 4 Toileting Hygiene (QC): 3 Toilet/Commode Transfer(FIM): 6 Toilet/Commode Transfer (QC): 6 Shower Transfer(FIM): 5 Additional Goals: 1-Demonstrate ADL Tasks, 2-Verbalize Understanding, 3- ImproveStrength/Franco 1=Demonstrate adherence to instructed precautions during ADL tasks. 2=Patient will verbalize/demonstrate understanding of assistive devices/ modifications for ADL. 3=Patient will improve strength/tolerance for activity to enable patient to perform ADL's. OT Education/Plan Problem List/Assessment Pt to benefit from skilled OT intervention for ADL training, transfers, strengthening, and safety education to maximize level of function and allow return to assisted living facility. Discharge Recommendations Plan/Recommendations: Continue POC Treatment Plan/Plan of Care Patient would benefit from OT for education, treatment and training to promote independence in ADL's, mobility, safety and/or upper extremity function for ADL' s. Plan of Care: ADL Retraining, Functional Mobility, Group Exercise/Act as Ind, UE Funct Exercise/Act, UE Neuromus Re-Ed/Coord Treatment Duration: December 21, 2016 Visits Per Week: 10-12 Minutes/Day (M-F): 60-90 Minutes/Day (Sat/[place]): PRN Rehab Potential: Fair Time/GCodes Start Time: 07:00 Stop Time: 08:00 Total Time Billed (hr/min): 60 Billed Treatment Time 1 visit-FA 4 (60 min) JAVI YOUNG Dec 01, 2016 11:22
--- NOTE | 2016-12-01 12:37 | Physical Therapy Daily Note ---
PT Daily Note-Current Subjective Agrees to PT. Throughout treatment pt asks this therapist to complete multiple tasks for her..."comb my hair back"; "move the trash can"; "move the tray closer , no that's too far, bring it closer now...". Transfers Functional [place] Measure 0=Not Assessed/NA 4=Minimal Assistance 1=Total Assistance 5=Supervision or Setup 2=Maximal Assistance 6=Modified [place] 3=Moderate Assistance 7=Complete IndependenceIRFPAI Quality Coding Scale 6 Independent with activity with or without an assistive device 5 Patient requires set up or clean up by helper. Patient completes activity by themselves 4 Supervision or touching assist (CGA). [place] provide cues , steadying assist 3 The helper provides less than half the effort to complete the activity 2 The helper provides more than half the effort to complete the activity 1 Dependent. The helper does all the effort to complete an activity 7 Patient refused to complete or attempt activity 9 The patient did not perform the activity before the current illness or injury 88 Not attempted due to Medical conditions or safety concerns Transfers (B, C, W/C) (FIM): 3 Supine to/from Sit: 3 (assist with both legs) Sit to/from Stand: 4 (CGA for safety) Cervical collar in place with upright activity. Gait Training Does the Patient Walk?: Yes Gait (FIM): 4 Distance (FIM): 3=150 ft Distance: 150 ft x 4 Walk 10 feet (QC): 4 Walk 50 ft with 2 Turns(QC): 4 Walk 150 ft (QC): 4 Walking 10ft/uneven surface-QC: 4 Gait Assistive Device: FWW Gait in gym across uneven surface x 10 ft x 2 and over a curb step x 4 with FWW with CGA and skilled cues for safety. Stair Training Stairs (FIM): 1 1 Step (curb) (QC): 4 Balance Picking up an Object (QC): 88 Exercises Seated Therapy Exercises: Ankle pumps, Long arc quads, Hip flexion, Hamstring Curls, Hip abd/add Seated Reps: 15 (LE strength to promote transfers and bed mobility) Standing: Hip Abduction, Hamstring curls, Heel/toe raises, Marching, Mini squats Standing Reps: 15 (to promote functional strength for gait) Assessment Current Status: Fair Progress Pt desires therapist to complete multiple tasks for her during treatment, encourage her to do for herself as much as possible. Tolerancted increased functional gait this visit. PT Short Term Goals Short Term Goals Time Frame: Dec 07, 2016 Gait (FIM): 4 Distance (FIM): 3=150 ft Gait Assistive Device: FWW PT Longterm Goals Longterm Goals PT Back End Architect Goals Time Frame: December 16, 2016 Transfers (B,C,W/C) (FIM): 6 Sit to Lying (QC): 6 Lying-Sitting on Side/Bed(QC): 6 Sit to Stand (QC): 6 Roll Left to Right (QC): 6 Chair/Pxe-xr-Vdsal Xfer(QC): 6 Car Transfer (QC): 5 Does the Patient Walk: Yes Gait (FIM): 6 Gait distance (FIM): 3=150 ft Walk 10 feet (QC): 6 Walk 10ft-Uneven Surface(QC): 6 Walk 50ft with 2 Turns (QC): 6 Walk 150 ft (QC): 6 Gait Assistive Device: FWW Does the Pt use WC or Scooter?: No Stairs (FIM): 2 # of Steps: 4 1 Step (curb) (QC): 5 4 Steps (QC): 5 12 Steps (QC): 88 Picking up an Object (QC): 88 PT Plan Problem List Problem List: Activity Tolerance, Functional Strength, Safety, Balance, Gait, Transfer, Bed Mobility Treatment/Plan Treatment Plan: Bed Mobility, Education, Functional Activity Franco, Functional Strength, Group Therapy, Gait, Safety, Therapeutic Exercise, Transfers Treatment Duration: December 16, 2016 Visits Per Week: 10-15 Minutes/Day (M-F): 60-90 Minutes/Day (Sat/[place]): prn Safety Risks/Education Patient Education: Transfer Techniques, Safety Issues Teaching Recipient: Patient Teaching Methods: Demonstration, Discussion Response to Teaching: Reinforcement Needed Time/GCodes Time In: 900 Time Out: 1000 Total Billed Treatment Time: 60 Total Billed Treatment visit EX 25 GT^ 35 JAVI LEONG PT Dec 01, 2016 12:36
--- NOTE | 2016-12-01 14:22 | Occupational Ther Daily Note ---
OT Current Status-Daily Note Subjective Pt alert, lying in bed. Pt agreed to therapy. Pt c/o fatigue and pain in knee. Mental Status/Objective Patient Orientation: Person, Place, Time, Situation Functional [place] Measure 0=Not Assessed/NA 4=Minimal Assistance 1=Total Assistance 5=Supervision or Setup 2=Maximal Assistance 6=Modified [place] 3=Moderate Assistance 7=Complete [place] ADL-Treatment Functional [place] Measure 0=Not Assessed/NA 4=Minimal Assistance 1=Total Assistance 5=Supervision or Setup 2=Maximal Assistance 6=Modified [place] 3=Moderate Assistance 7=Complete IndependenceIRFPAI Quality Coding Scale 6 Independent with activity with or without an assistive device 5 Patient requires set up or clean up by helper. Patient completes activity by themselves 4 Supervision or touching assist (CGA). [place] provide cues , steadying assist 3 The helper provides less than half the effort to complete the activity 2 The helper provides more than half the effort to complete the activity 1 Dependent. The helper does all the effort to complete an activity 7 Patient refused to complete or attempt activity 9 The patient did not perform the activity before the current illness or injury 88 Not attempted due to Medical conditions or safety concerns Eating (FIM): 3 (Pt is able to grasp, scoop and hold onto utensil. Pt then required assistance to bring to mouth. Pt takes increased time to complete task.) Other Treatment Pt alert, lying in bed. Worked on AAROM of UE's due to pt's decrease in AROM for independence in daily functional tasks. After therapy, pt lying in bed with visitor present. Call light/phone in reach. All needs met in room. OT Short Term Goals Short Term Goals Time Frame: Dec 07, 2016 Eating(FIM): 3 Grooming(FIM): 3 Upper Body Dressing(FIM): 3 Toileting(FIM): 2 Additional Short Term Goals: 1-Demonstrate ADL Tasks, 2-Verbalize Understanding , 3-ImproveStrength/Franco 1=Demonstrate adherence to instructed precautions during ADL tasks. 2=Patient will verbalize/demonstrate understanding of assistive devices/ modifications for ADL. 3=Patient will improve strength/tolerance for activity to enable patient to perform ADL's. OT Fdc Goals Fdc Goals Time Frame: December 21, 2016 Eating (FIM): 5 Eating (QC): 5 Groomin Oral Hygiene (QC): 5 Bathing(FIM): 4 Shower/Bathe Self (QC): 3 Upper Body Dressing(FIM): 4 Upper Body Dressing (QC): 3 Lower Body Dressing(FIM): 4 Lower Body Dressing (QC): 3 On/Off Footwear (QC): 3 Toileting(FIM): 4 Toileting Hygiene (QC): 3 Toilet/Commode Transfer(FIM): 6 Toilet/Commode Transfer (QC): 6 Shower Transfer(FIM): 5 Additional Goals: 1-Demonstrate ADL Tasks, 2-Verbalize Understanding, 3- ImproveStrength/Franco 1=Demonstrate adherence to instructed precautions during ADL tasks. 2=Patient will verbalize/demonstrate understanding of assistive devices/ modifications for ADL. 3=Patient will improve strength/tolerance for activity to enable patient to perform ADL's. OT Education/Plan Problem List/Assessment Pt to benefit from skilled OT intervention for ADL training, transfers, strengthening, and safety education to maximize level of function and allow return to assisted living facility. Discharge Recommendations Plan/Recommendations: Continue POC Treatment Plan/Plan of Care Patient would benefit from OT for education, treatment and training to promote independence in ADL's, mobility, safety and/or upper extremity function for ADL' s. Plan of Care: ADL Retraining, Functional Mobility, Group Exercise/Act as Ind, UE Funct Exercise/Act, UE Neuromus Re-Ed/Coord Treatment Duration: December 21, 2016 Visits Per Week: 10-12 Minutes/Day (M-F): 60-90 Minutes/Day (Sat/[place]): PRN Rehab Potential: Fair Time/GCodes Start Time: 13:00 Stop Time: 14:00 Total Time Billed (hr/min): 60 Billed Treatment Time 1 visit-EX 2 (30 min) FA 2 (30 min) JAVI YOUNG Dec 01, 2016 14:22
--- NOTE | 2016-12-01 15:39 | Physical Therapy Daily Note ---
PT Daily Note-Current Subjective Pt reports she is worn out from her therapy this morning. Agrees to bed exercises. Transfers Functional [place] Measure 0=Not Assessed/NA 4=Minimal Assistance 1=Total Assistance 5=Supervision or Setup 2=Maximal Assistance 6=Modified [place] 3=Moderate Assistance 7=Complete IndependenceIRFPAI Quality Coding Scale 6 Independent with activity with or without an assistive device 5 Patient requires set up or clean up by helper. Patient completes activity by themselves 4 Supervision or touching assist (CGA). [place] provide cues , steadying assist 3 The helper provides less than half the effort to complete the activity 2 The helper provides more than half the effort to complete the activity 1 Dependent. The helper does all the effort to complete an activity 7 Patient refused to complete or attempt activity 9 The patient did not perform the activity before the current illness or injury 88 Not attempted due to Medical conditions or safety concerns Exercises Supine Ex: Ankle pumps, Quad Set, Glut sets, Heel Slides, Short Arc Quads, Hip abd/add Supine Reps: 15 (to promote LE strength to facilitate functional transfers and gait. ) Assessment Pt tired this afternoon; agreeable to bed exercises. PT Short Term Goals Short Term Goals Time Frame: Dec 07, 2016 Gait (FIM): 4 Distance (FIM): 3=150 ft Gait Assistive Device: FWW PT Chair Finisher Goals Half-Way Goals PT Chair Finisher Goals Time Frame: December 16, 2016 Transfers (B,C,W/C) (FIM): 6 Sit to Lying (QC): 6 Lying-Sitting on Side/Bed(QC): 6 Sit to Stand (QC): 6 Roll Left to Right (QC): 6 Chair/Sjl-ko-Ftpyu Xfer(QC): 6 Car Transfer (QC): 5 Does the Patient Walk: Yes Gait (FIM): 6 Gait distance (FIM): 3=150 ft Walk 10 feet (QC): 6 Walk 10ft-Uneven Surface(QC): 6 Walk 50ft with 2 Turns (QC): 6 Walk 150 ft (QC): 6 Gait Assistive Device: FWW Does the Pt use WC or Scooter?: No Stairs (FIM): 2 # of Steps: 4 1 Step (curb) (QC): 5 4 Steps (QC): 5 12 Steps (QC): 88 Picking up an Object (QC): 88 PT Plan Problem List Problem List: Activity Tolerance, Functional Strength, Safety, Balance, Gait, Transfer, Bed Mobility Treatment/Plan Treatment Plan: Continue Plan of Care Treatment Plan: Bed Mobility, Education, Functional Activity Franco, Functional Strength, Group Therapy, Gait, Safety, Therapeutic Exercise, Transfers Treatment Duration: December 16, 2016 Visits Per Week: 10-15 Minutes/Day (M-F): 60-90 Minutes/Day (Sat/[place]): prn Time/GCodes Time In: 1440 Time Out: 1455 Total Billed Treatment Time: 15 Total Billed Treatment visit EX 15 JAVI LEONG PT Dec 01, 2016 15:39
--- NOTE | 2016-12-01 17:30 | Consultation ---
History of Present Illness History of Present Illness Patient Consulted On(froylan/time) 12/01/16 17:23 Date of Admission History of Present Illness patient had surgery for cervical stenosis. Patient has renal failure and is on dialysis. Patient had increased weakness in her arms due to cervical stenosis. Previous surgery right mastectomy. Partial hysterectomy and left one ovary. Many exploratory Allergies and Home Medications Allergies Coded Allergies: Nitrofurantoin Macrocrystal (Unverified Allergy, Unknown, 10/24/16) Sulfa (Sulfonamide Antibiotics) (Unverified Allergy, Unknown, 11/28/16) acetaminophen (Unverified Allergy, Unknown, 11/28/16) benzonatate (Unverified Allergy, Unknown, 10/24/16) codeine (Unverified Allergy, Unknown, 11/28/16) gabapentin (Unverified Allergy, Unknown, 10/24/16) lansoprazole (Unverified Allergy, Unknown, 10/24/16) methenamine (Unverified Allergy, Unknown, 10/24/16) naproxen (Unverified Allergy, Unknown, 10/24/16) nitrofurantoin (Unverified Allergy, Unknown, 10/24/16) pioglitazone HCl (Unverified Allergy, Unknown, 10/24/16) prednisone (Unverified Allergy, Unknown, 10/24/16) promethazine (Unverified Allergy, Unknown, 10/24/16) valdecoxib (Unverified Allergy, Unknown, 10/24/16) zolpidem tartrate (Unverified Allergy, Unknown, 10/24/16) levofloxacin (Unverified Adverse Reaction, Unknown, 10/24/16) tolterodine tartrate (Unverified Adverse Reaction, Unknown, 10/24/16) Uncoded Allergies: MELOLAZONE (Allergy, Unknown, 06/23/14) Home Medications Anastrozole 1 Mg Tablet, 1 MG PO DAILY, (Reported) Atorvastatin Calcium 10 Mg Tablet, 5 MG PO HS, (Reported) TAKES 1/2 (10MG) TABLET B2/Vit A,C & E/Lut/Zeaxanth/Mn 1 Each Tablet.er, 1 TAB PO BID, (Reported) Benzonatate 100 Mg Capsule, 100 MG PO TID PRN for COUGH, (Reported) Cinacalcet HCl 30 Mg Tablet, 30 MG PO HS, (Reported) Famotidine 20 Mg Tablet, 20 MG PO HS, (Reported) Hydrocodone/Acetaminophen 1 Each Tablet, 1 TAB PO Q4H PRN for PAIN-SEVERE, ( Reported) Metoprolol Succinate 50 Mg Tab.er.24h, 50 MG PO DAILY, (Reported) Ondansetron 4 Mg Tab.rapdis, 4 MG PO Q6H PRN for NAUSEA/VOMITING, (Reported) Pantoprazole Sodium 40 Mg Tablet.dr, 40 MG PO DAILY, (Reported) Polyethylene Glycol 3350 119 Gm Powder, 17 GM PO DAILY PRN for CONSTIPATION, ( Reported) Sevelamer Carbonate 800 Mg Tablet, 3,200 MG PO TIDWM, (Reported) TAKE 3 (800MG) TABS Sevelamer Carbonate 800 Mg Tablet, 1,600 MG PO BID WITH SNACKS, (Reported) Warfarin Sodium 5 Mg Tablet, 5 MG PO DAILY@1700, (Reported) Past [place]-Yoobtr-Oywdnb Hx Patient Social History Alcohol Use: Denies Use Recreational Drug Use: No Smoking Status: Former Smoker Type Used: Cigarettes 2nd Hand Smoke Exposure: No Recent Foreign Travel: No Contact w/Someone Who Travel: No Recent Infectious Disease Expo: No Recent Hopitalizations: Yes Physical Abuse Screen: No Sexual Abuse: No Immunizations Up To Date Tetanus Booster (TDap): Unknown Date of Pneumonia Vaccine: Oct 12, 2016 Date of Influenza Vaccine: May 14, 2014 Seasonal Allergies Seasonal Allergies: Yes Surgeries HX Surgeries: Yes (A&P repair, R mastectomy, SPLEEN;LUMBAR SURGERY; RIGHT AV FISTULA, ) Surgeries: Breast, Dialysis, Hysterectomy, Orthopedic, Vascular Surgery Respiratory Hx Respiratory Disorders: Yes (currently taking abx for possible pneumonia, ) Cardiovascular Hx Cardiac Disorders: Yes Cardiac Disorders: Atrial Fibrillation, High Cholesterol, Hypertension Neurological Hx Neurological Disorders: No 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 System : No Hx 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 Disorders: No 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 Genitourinary Hx Genitourinary Disorders: Yes (DIALYSIS MWF) Genitourinary Disorders: Renal Failure, Dialysis, UTI-Chronic Gastrointestinal Hx Gastrointestinal Disorders: Yes (hx of colon resections) Gastrointestinal Disorders: Diverticulosis Musculoskeletal Hx Musculoskeletal Disorders: Yes (CHRONIC NECK PAIN, not able to left arms up , hx right side rib fx) Musculoskeletal Disorders: Chronic Back Pain Endocrine Hx Endocrine Disorders: Yes (HYPERPARATHYROIDISM) Endocrine Disorders: Parathyroid Disease, Diabetes, Non-Insulin dep HEENT HX ENT Disorders: No HEENT Disorders: Cataract, Macular Degeneration Cancer Hx Cancer: Yes Cancer: Breast Psychosocial Hx Psychiatric Problems: Yes Behavioral Health Disorders: Anxiety, Bipolar, Depression Integumentary HX Skin/Integumentary Disorder: No Blood Transfusions Hx Blood Disorders: No Adverse Reaction to a Blood Tr: No Family Medical History Significant Family History: No Pertinent Family Hx Family Medial History: Patient reports no known family medical history. Review of Systems-General Constitutional: no symptoms reported EENTM: no symptoms reported Respiratory: no symptoms reported Cardiovascular: other (atrial fibrillation) Gastrointestinal: no symptoms reported Genitourinary: no symptoms reported Physical Exam-General Problems Physical Exam Vital Signs Vital Sign - Last 12Hours 11/30/16 11/30/16 06:00 06:02 Temp 97.4 Pulse 71 Resp 18 B/P (MAP) 175/73 Pulse Ox 93 O2 Delivery Room Air O2 Flow Rate 3.00 Capillary Refill : General Appearance: WD/WN, no apparent distress Eyes: Bilateral Eye Normal Inspection HEENT: normal ENT inspection Neck: full range of motion, normal inspection Respiratory: chest non-tender, lungs clear, normal breath sounds, no respiratory distress, no accessory muscle use Cardiovascular: irregularly irregular Gastrointestinal: non tender, soft Assessment/Plan Assessment/Plan Admission Diagnosis/Plan cervical stenosis. Debility. Renal failure. Hypertension. Hyperlipidemia Clinical Quality Measures DVT/VTE Risk/Contraindication: Risk Factor Score Per Nursin RFS Level Per Nursing on Admit: 4+=Very High AN PEREZ DO Dec 01, 2016 17:30
[2016-12-01] MEDS: warFARin 5 MG (COUMADIN) TAB PO SCH (17:50)
[2016-12-01 18:04] VITALS: BP 153/67
[2016-12-01] MEDS ORDERED: KCL 10 MEQ TAB (MICRO K) PO NR (19:15)
[2016-12-01] MEDS: CINACALCET 30 MG PO SCH (21:05)
[2016-12-01] MEDS: ATORVASTATIN 10 MG (LIPITOR) TABLET PO SCH (21:05)
[2016-12-01] MEDS: FAMOTIDINE 20 MG (PEPCID) TABLET PO SCH (21:05)
[2016-12-02 06:00] VITALS: BP 168/64
[2016-12-02] MEDS: PANTOPRAZOLE 40 MG (PROTONIX) TAB PO SCH (06:45)
[2016-12-02] MEDS: SEVELAMER CARBONATE 800 MG TAB (RENVELA) NON-FORMULARY PO SCH ×3 (07:26→18:55)
--- NOTE | 2016-12-02 08:24 | Progress Note (SOAP) ---
Subjective Subjective/Events-last exam lumbar stenosis. Patient doing physical therapy and slowly improving. Patient voices no complaints today except for the neck Objective Exam Vital Signs Date Time Temp Pulse Resp B/P (MAP) Pulse Ox O2 Delivery O2 Flow Rate FiO2 12/02/16 06:30 98 1.00 12/02/16 06:00 96.4 67 20 168/64 98 Room Air 12/02/16 02:36 98 1.00 12/01/16 22:19 96 1.00 12/01/16 20:30 Nasal Cannula 1.00 12/01/16 18:30 78 12/01/16 18:04 96.6 62 14 153/67 90 Room Air 12/01/16 15:06 100 1.00 12/01/16 10:05 100 2.00 I & O 12/02/16 07:00 Intake Total 850 ml Balance 850 ml Capillary Refill : General Appearance: No Apparent Distress, WD/WN HEENT: TMs Normal Neck: Non Tender Respiratory: Chest Non Tender, Normal Breath Sounds, No Accessory Muscle Use, No Respiratory Distress Cardiovascular: Irregularly Irregular Gastrointestinal: non tender, soft Results Lab Laboratory Tests 12/01/16 08:50 Laboratory Tests 12/01/16 08:50: White Blood Count 17.3H, Red Blood Count 3.30L, Hemoglobin 9.8L, Hematocrit 31L , Mean Corpuscular Volume 95, Mean Corpuscular Hemoglobin 30, Mean Corpuscular Hemoglobin Concent 31L, Red Cell Distribution Width 16.7H, Platelet Count 392, Mean Platelet Volume 11.9H, Neutrophils (%) (Auto) 61, Lymphocytes (%) (Auto) 22 , Monocytes (%) (Auto) 15H, Eosinophils (%) (Auto) 2, Basophils (%) (Auto) 0, Neutrophils # (Auto) 10.6H, Lymphocytes # (Auto) 3.9, Monocytes # (Auto) 2.5H, Eosinophils # (Auto) 0.3, Basophils # (Auto) 0.0, Prothrombin Time 20.0H, INR Comment 1.7H, Sodium Level 137, Potassium Level 3.4L, Chloride Level 92L, Carbon Dioxide Level 33H, Anion Gap 12, Blood Urea Nitrogen 26H, Creatinine 3.65H, Estimat Glomerular Filtration Rate 12, BUN/Creatinine Ratio 7, Glucose Level 133H, Calcium Level 9.3, Magnesium Level 2.0, Total Bilirubin 0.5, Aspartate Amino Transf (AST/SGOT) 67H, Alanine Aminotransferase (ALT/SGPT) < 6, Alkaline Phosphatase 453H, Total Protein 6.5, Albumin 3.4 Assessment/Plan Assessment/Plan Assess & Plan/Chief Complaint cervical stenosis. Debility. Renal failure. Hypertension. Hyperlipidemia Final Diagnosis cervical stenosis. Renal failure. Weakness. Debility Clinical Quality Measures DVT/VTE Risk/Contraindication: Risk Factor Score Per Nursin RFS Level Per Nursing on Admit: 4+=Very High AN PEREZ DO Dec 02, 2016 08:24
[2016-12-02] MEDS: meTOproloL SUCCINATE 50 MG (TOPROL XL) TAB PO SCH (08:44)
[2016-12-02 08:50] LABS: MEAN PLATELET VOLUME 11.4 FL (7.4-10.4); RED BLOOD COUNT 3.29 10^6/uL (4.35-5.85); RED CELL DISTRIBUTION WIDTH 16.5 % (10.0-14.5)
[2016-12-02 08:58] VITALS: BP 182/73
[2016-12-02 09:00] LABS: INR 2.5 (0.8-1.4); PROTHROMBIN TIME PATIENT 26.4 SEC (12.2-14.7)
--- NOTE | 2016-12-02 09:03 | Physical Therapy Daily Note ---
PT Daily Note-Current Subjective Pt. lethargic, agrees to Rx with encouragement. c/o pain in neck at 7/10. also discomfort in bottom with sitting. Invited pt to be up and about "off bottom" Pain Numeric Pain Scale: 7 Location: Posterior Location Body Site: Neck Pain Description: Ache Mental Status Patient Orientation: Normal For Age Attachments: Other-See Comments (sat monitor, cervical brace) Transfers Functional [place] Measure 0=Not Assessed/NA 4=Minimal Assistance 1=Total Assistance 5=Supervision or Setup 2=Maximal Assistance 6=Modified [place] 3=Moderate Assistance 7=Complete IndependenceIRFPAI Quality Coding Scale 6 Independent with activity with or without an assistive device 5 Patient requires set up or clean up by helper. Patient completes activity by themselves 4 Supervision or touching assist (CGA). [place] provide cues , steadying assist 3 The helper provides less than half the effort to complete the activity 2 The helper provides more than half the effort to complete the activity 1 Dependent. The helper does all the effort to complete an activity 7 Patient refused to complete or attempt activity 9 The patient did not perform the activity before the current illness or injury 88 Not attempted due to Medical conditions or safety concerns Transfers (B, C, W/C) (FIM): 4 Scootin Rollin Supine to/from Sit: 4 (needs support at her neck to rise supine to sit) Sit to/from Stand: 5 Bed to/from Chair: 5 Gait Training Does the Patient Walk?: Yes Gait (FIM): 4 Distance (FIM): 3=150 ft Gait Level of Assist: 4 Gait Persons Needed: 1 Gait Assistive Device: FWW assist for O2 at 1 L Exercises Supine Ex: Bridging, Ankle pumps, Quad Set, Rolling, Glut sets, Lower trunk rotation, Heel Slides, Short Arc Quads, Scooting, Straight leg raise, Hip abd/ add Supine Reps: 15 Seated Therapy Exercises: Ankle pumps, Sit to stand, Long arc quads, Hip flexion Seated Reps: 10 Assessment Current Status: Fair Progress pain limits Rx this date. Nursing alerted to pts. c/o pain PT Short Term Goals Short Term Goals Time Frame: Dec 07, 2016 Gait (FIM): 4 Distance (FIM): 3=150 ft Gait Assistive Device: FWW PT Longterm Goals Spudder Goals PT Spudder Goals Time Frame: December 16, 2016 Transfers (B,C,W/C) (FIM): 6 Sit to Lying (QC): 6 Lying-Sitting on Side/Bed(QC): 6 Sit to Stand (QC): 6 Roll Left to Right (QC): 6 Chair/Cke-vs-Mcmfh Xfer(QC): 6 Car Transfer (QC): 5 Does the Patient Walk: Yes Gait (FIM): 6 Gait distance (FIM): 3=150 ft Walk 10 feet (QC): 6 Walk 10ft-Uneven Surface(QC): 6 Walk 50ft with 2 Turns (QC): 6 Walk 150 ft (QC): 6 Gait Assistive Device: FWW Does the Pt use WC or Scooter?: No Stairs (FIM): 2 # of Steps: 4 1 Step (curb) (QC): 5 4 Steps (QC): 5 12 Steps (QC): 88 Picking up an Object (QC): 88 PT Plan Treatment/Plan Treatment Plan: Continue Plan of Care Treatment Plan: Bed Mobility, Education, Functional Activity Franco, Functional Strength, Group Therapy, Gait, Safety, Therapeutic Exercise, Transfers Treatment Duration: December 16, 2016 Visits Per Week: 10-15 Minutes/Day (M-F): 60-90 Minutes/Day (Sat/[place]): prn Safety Risks/Education Patient Education: Gait Training, Transfer Techniques, Issued Written HEP Teaching Methods: Demonstration, Discussion Response to Teaching: Verbalize Understanding, Return Demonstration, Reinforcement Needed Time/GCodes Time In: 800 Time Out: 900 Total Billed Treatment Time: 60 Total Billed Treatment 1,EX25m,FA15m,GT20m G Codes Necessary: MACK Miller [employer]ERS AND ACQUISITIONS MANAGER Dec 02, 2016 09:03
[2016-12-02 09:09] LABS: ALANINE AMINOTRANSFERASE < 6 U/L (0-55); ALBUMIN 3.3 G/DL (3.2-4.5); ANION GAP 15 MMOL/L (5-14); ASPARTATE AMINO TRANSFERASE 27 U/L (5-34); BILIRUBIN,TOTAL 0.4 MG/DL (0.1-1.0); BLOOD UREA NITROGEN 33 MG/DL (7-18); BUN/CREATININE RATIO 7; CALCIUM 9.2 MG/DL (8.5-10.1); CARBON DIOXIDE 29 MMOL/L (21-32); CHLORIDE 92 MMOL/L (98-107); CREATININE SERUM 4.85 MG/DL (0.60-1.30); GFR ESTIMATED 9; GLUCOSE 139 MG/DL (70-105); POTASSIUM 3.7 MMOL/L (3.6-5.0); SODIUM 136 MMOL/L (135-145); TOTAL PROTEIN 6.5 G/DL (6.4-8.2)
[2016-12-02] MEDS: HYDROcodone/APAP 7.5 MG/325 MG (LORTAB, LORCET PLUS) TABLET PO PRN ×2 (09:12→21:01)
--- NOTE | 2016-12-02 09:44 | Occupational Ther Daily Note ---
OT Current Status-Daily Note Subjective Pt sleeping in bed. Pt spoke to SZYMANSKI but continued to keep eyes closed. Pt stated that therapy wore her out yesterday. SZYMANSKI explained that pt needed to start getting ready due to dialysis was this morning. Pt agreed to therapy. Mental Status/Objective Patient Orientation: Person, Place, Time, Situation Functional [place] Measure 0=Not Assessed/NA 4=Minimal Assistance 1=Total Assistance 5=Supervision or Setup 2=Maximal Assistance 6=Modified [place] 3=Moderate Assistance 7=Complete [place] ADL-Treatment Mod A to go from supine to sitting EOB. Pt completed sponge bath EOB. Pt completed L side of upper body then stated that she couldn't reach over to do R side. Mod A to don shirt due to limited B UE AROM. Max A with donning/doffing pants, pt will attempt to pull pants up in front then gives up and asks for assistance. Max A to complete oral care and grooming. Pt will wash face with assist to lift arm to face. Pt states she cannot do it before she attempts to complete. Pt is able to bathe venancio area in standing then assist needed to bathe buttocks. Pt is able to hold onto eating utensil or cup then requires assist to raise to mouth. Pt has difficulty masticating food with dentures. Pt requested to lay back down prior to PT. Min A to go from sitting EOB to supine. Pt takes increased time to complete tasks due to decreased AROM and increased fatigue. Call light/phone in reach. All needs met in room. Functional [place] Measure 0=Not Assessed/NA 4=Minimal Assistance 1=Total Assistance 5=Supervision or Setup 2=Maximal Assistance 6=Modified [place] 3=Moderate Assistance 7=Complete IndependenceIRFPAI Quality Coding Scale 6 Independent with activity with or without an assistive device 5 Patient requires set up or clean up by helper. Patient completes activity by themselves 4 Supervision or touching assist (CGA). [place] provide cues , steadying assist 3 The helper provides less than half the effort to complete the activity 2 The helper provides more than half the effort to complete the activity 1 Dependent. The helper does all the effort to complete an activity 7 Patient refused to complete or attempt activity 9 The patient did not perform the activity before the current illness or injury 88 Not attempted due to Medical conditions or safety concerns Eating (FIM): 2 Grooming (FIM): 2 Bathing (FIM): 3 Bathing Location: L Arm, L Upper Leg, R Upper Leg, Chest, Perineal Area Upper Body (FIM): 3 Lower Body Dressing (FIM): 2 Transfers (B, C, W/C) (FIM): 4 OT Short Term Goals Short Term Goals Time Frame: Dec 07, 2016 Eating(FIM): 3 Grooming(FIM): 3 Upper Body Dressing(FIM): 3 Toileting(FIM): 2 Additional Short Term Goals: 1-Demonstrate ADL Tasks, 2-Verbalize Understanding , 3-ImproveStrength/Franco 1=Demonstrate adherence to instructed precautions during ADL tasks. 2=Patient will verbalize/demonstrate understanding of assistive devices/ modifications for ADL. 3=Patient will improve strength/tolerance for activity to enable patient to perform ADL's. OT Detention Goals [employer] Supervisor Goals Time Frame: December 21, 2016 Eating (FIM): 5 Eating (QC): 5 Groomin Oral Hygiene (QC): 5 Bathing(FIM): 4 Shower/Bathe Self (QC): 3 Upper Body Dressing(FIM): 4 Upper Body Dressing (QC): 3 Lower Body Dressing(FIM): 4 Lower Body Dressing (QC): 3 On/Off Footwear (QC): 3 Toileting(FIM): 4 Toileting Hygiene (QC): 3 Toilet/Commode Transfer(FIM): 6 Toilet/Commode Transfer (QC): 6 Shower Transfer(FIM): 5 Additional Goals: 1-Demonstrate ADL Tasks, 2-Verbalize Understanding, 3- ImproveStrength/Franco 1=Demonstrate adherence to instructed precautions during ADL tasks. 2=Patient will verbalize/demonstrate understanding of assistive devices/ modifications for ADL. 3=Patient will improve strength/tolerance for activity to enable patient to perform ADL's. OT Education/Plan Problem List/Assessment Pt to benefit from skilled OT intervention for ADL training, transfers, strengthening, and safety education to maximize level of function and allow return to assisted living facility. Discharge Recommendations Plan/Recommendations: Continue POC Treatment Plan/Plan of Care Patient would benefit from OT for education, treatment and training to promote independence in ADL's, mobility, safety and/or upper extremity function for ADL' s. Plan of Care: ADL Retraining, Functional Mobility, Group Exercise/Act as Ind, UE Funct Exercise/Act, UE Neuromus Re-Ed/Coord Treatment Duration: December 21, 2016 Visits Per Week: 10-12 Minutes/Day (M-F): 60-90 Minutes/Day (Sat/[place]): PRN Rehab Potential: Fair Time/GCodes Start Time: 06:55 Stop Time: 08:00 Total Time Billed (hr/min): 65 Billed Treatment Time 1 visit-ADL 4 (65 min) AJVI YOUNG Dec 02, 2016 09:44
--- NOTE | 2016-12-02 12:42 | Occupational Ther Daily Note ---
OT Current Status-Daily Note Subjective Pt sitting up in w/c. Nrsg present in room. Pt agreed to therapy. Pt c/o pain , nrsg in room. Mental Status/Objective Patient Orientation: Person, Place, Time, Situation Functional [place] Measure 0=Not Assessed/NA 4=Minimal Assistance 1=Total Assistance 5=Supervision or Setup 2=Maximal Assistance 6=Modified [place] 3=Moderate Assistance 7=Complete [place] Attachments: IV, Oxygen ADL-Treatment Functional [place] Measure 0=Not Assessed/NA 4=Minimal Assistance 1=Total Assistance 5=Supervision or Setup 2=Maximal Assistance 6=Modified [place] 3=Moderate Assistance 7=Complete IndependenceIRFPAI Quality Coding Scale 6 Independent with activity with or without an assistive device 5 Patient requires set up or clean up by helper. Patient completes activity by themselves 4 Supervision or touching assist (CGA). [address] provide cues , steadying assist 3 The helper provides less than half the effort to complete the activity 2 The helper provides more than half the effort to complete the activity 1 Dependent. The helper does all the effort to complete an activity 7 Patient refused to complete or attempt activity 9 The patient did not perform the activity before the current illness or injury 88 Not attempted due to Medical conditions or safety concerns Other Treatment Worked on pt's B shldr to decrease stiffness and pain prior to ROM. Completed PROM to B shldr while pt sitting in w/c. Pt did not c/o pain during ROM. Pt is able to raise R UE approximately 45* and L UE 30*. Pt demonstrates good ROM in B elbows and limited wrist flexion/extension. Pt has demonstrated ability to flex fingers and hold cups with liquid. Pt has demonstrated ability to reach to face though will ask for someone to wipe her nose. Pt worked on transfer into car. Pt was able to pivot transfer from w/c to back seat of car. Pt required assist to lift legs into car due to small space allowed for legs. After therapy, pt in car going to dialysis. O2 tank with pt to dialysis. OT Short Term Goals Short Term Goals Time Frame: Dec 07, 2016 Eating(FIM): 3 Grooming(FIM): 3 Upper Body Dressing(FIM): 3 Toileting(FIM): 2 Additional Short Term Goals: 1-Demonstrate ADL Tasks, 2-Verbalize Understanding , 3-ImproveStrength/Franco 1=Demonstrate adherence to instructed precautions during ADL tasks. 2=Patient will verbalize/demonstrate understanding of assistive devices/ modifications for ADL. 3=Patient will improve strength/tolerance for activity to enable patient to perform ADL's. OT [facility] Goals Mutual Funds Agent Goals Time Frame: December 21, 2016 Eating (FIM): 5 Eating (QC): 5 Groomin Oral Hygiene (QC): 5 Bathing(FIM): 4 Shower/Bathe Self (QC): 3 Upper Body Dressing(FIM): 4 Upper Body Dressing (QC): 3 Lower Body Dressing(FIM): 4 Lower Body Dressing (QC): 3 On/Off Footwear (QC): 3 Toileting(FIM): 4 Toileting Hygiene (QC): 3 Toilet/Commode Transfer(FIM): 6 Toilet/Commode Transfer (QC): 6 Shower Transfer(FIM): 5 Additional Goals: 1-Demonstrate ADL Tasks, 2-Verbalize Understanding, 3- ImproveStrength/Franco 1=Demonstrate adherence to instructed precautions during ADL tasks. 2=Patient will verbalize/demonstrate understanding of assistive devices/ modifications for ADL. 3=Patient will improve strength/tolerance for activity to enable patient to perform ADL's. OT Education/Plan Problem List/Assessment Pt to benefit from skilled OT intervention for ADL training, transfers, strengthening, and safety education to maximize level of function and allow return to assisted living facility. Discharge Recommendations Plan/Recommendations: Continue POC Treatment Plan/Plan of Care Patient would benefit from OT for education, treatment and training to promote independence in ADL's, mobility, safety and/or upper extremity function for ADL' s. Plan of Care: ADL Retraining, Functional Mobility, Group Exercise/Act as Ind, UE Funct Exercise/Act, UE Neuromus Re-Ed/Coord Treatment Duration: December 21, 2016 Visits Per Week: 10-12 Minutes/Day (M-F): 60-90 Minutes/Day (Sat/[place]): PRN Rehab Potential: Fair Time/GCodes Start Time: 09:00 Stop Time: 09:30 Total Time Billed (hr/min): 30 Billed Treatment Time 1 visit-FA 2 (30 min) JAVI YOUNG Dec 02, 2016 12:42
--- NOTE | 2016-12-02 15:08 | Physical Therapy Daily Note ---
PT Daily Note-Current Subjective Patient states she is cold. Pain Numeric Pain Scale: 5-Moderate Pain Location: Anterior Location Body Site: Neck Pain Description: Acute Mental Status Patient Orientation: Normal For Age Transfers Functional [place] Measure 0=Not Assessed/NA 4=Minimal Assistance 1=Total Assistance 5=Supervision or Setup 2=Maximal Assistance 6=Modified [place] 3=Moderate Assistance 7=Complete IndependenceIRFPAI Quality Coding Scale 6 Independent with activity with or without an assistive device 5 Patient requires set up or clean up by helper. Patient completes activity by themselves 4 Supervision or touching assist (CGA). [place] provide cues , steadying assist 3 The helper provides less than half the effort to complete the activity 2 The helper provides more than half the effort to complete the activity 1 Dependent. The helper does all the effort to complete an activity 7 Patient refused to complete or attempt activity 9 The patient did not perform the activity before the current illness or injury 88 Not attempted due to Medical conditions or safety concerns Transfers (B, C, W/C) (FIM): 4 Scootin Rollin Roll Left to Right (QC): 4 Supine to/from Sit: 4 Sit to/from Stand: 4 Sit to Lying (QC): 4 Sit to Stand (QC): 4 Chair/Vbc-yv-Wkkow Xfer(QC): 4 Bed to/from Chair: 4 Car Transfer (QC): 4 Patient is SBA with sit to stand from raised toilet and requires dependent assist to cleanse and pull up clothing Gait Training Does the Patient Walk?: Yes Gait (FIM): 1 Distance (FIM): 1=up to 49 ft Distance: 25' x 2 Walk 10 feet (QC): 4 Gait Level of Assist: 4 Gait Persons Needed: 1 Gait Assistive Device: FWW functional Assessment Patient is repositioned to side lying left with pillow behind back. Patient is very fatigued from dialysis. PT Short Term Goals Short Term Goals Time Frame: Dec 07, 2016 Gait (FIM): 4 Distance (FIM): 3=150 ft Gait Assistive Device: FWW PT Blood Donor Recruiter Supervisor Goals Blood Donor Recruiter Supervisor Goals PT Blood Donor Recruiter Supervisor Goals Time Frame: December 16, 2016 Transfers (B,C,W/C) (FIM): 6 Sit to Lying (QC): 6 Lying-Sitting on Side/Bed(QC): 6 Sit to Stand (QC): 6 Rollin Roll Left to Right (QC): 6 Chair/Yay-qk-Qdnrg Xfer(QC): 6 Car Transfer (QC): 5 Does the Patient Walk: Yes Gait (FIM): 6 Gait distance (FIM): 3=150 ft Walk 10 feet (QC): 6 Walk 10ft-Uneven Surface(QC): 6 Walk 50ft with 2 Turns (QC): 6 Walk 150 ft (QC): 6 Gait Assistive Device: FWW Does the Pt use WC or Scooter?: No Stairs (FIM): 2 # of Steps: 4 1 Step (curb) (QC): 5 4 Steps (QC): 5 12 Steps (QC): 88 Picking up an Object (QC): 88 PT Plan Treatment/Plan Treatment Plan: Continue Plan of Care Treatment Plan: Bed Mobility, Education, Functional Activity Franco, Functional Strength, Group Therapy, Gait, Safety, Therapeutic Exercise, Transfers Treatment Duration: December 16, 2016 Visits Per Week: 10-15 Minutes/Day (M-F): 60-90 Minutes/Day (Sat/[place]): prn Time/GCodes Time In: 1430 Time Out: 1500 Total Billed Treatment Time: 30 Total Billed Treatment 1 visit FA x 2 30 min HASMUKH CASTILLO PT Dec 02, 2016 15:08
[2016-12-02 18:11] VITALS: BP 172/51
[2016-12-02] MEDS: warFARin 5 MG (COUMADIN) TAB PO SCH (18:54)
[2016-12-02] MEDS: ATORVASTATIN 10 MG (LIPITOR) TABLET PO SCH (21:01)
[2016-12-02] MEDS: CINACALCET 30 MG PO SCH (21:02)
[2016-12-02] MEDS: FAMOTIDINE 20 MG (PEPCID) TABLET PO SCH (21:02)
--- NOTE | 2016-12-02 21:23 | PM & R (SOAP) Progress Note ---
Subjective Subjective/Events-last exam Patient was seen in her room this evening Case discussed with RN Patient tarain out to have light turned out in her room Patient sleeps in the nude covered only by shee Patient min assist for transfers remains on by [place] Roxana mckeon notes Review of Systems Pulmonary: Dyspnea Objective Exam Last Set of Vital Signs Vital Signs Date Time Temp Pulse Resp B/P (MAP) Pulse Ox O2 Delivery O2 Flow Rate FiO2 12/02/16 18:21 100 1.00 12/02/16 08:58 96.5 62 18 182/73 Nasal Cannula Capillary Refill : I&O Intake and Output 12/02/16 00:00 Intake Total 900 ml Output Total 0 ml Balance 900 ml Intake Oral 900 ml Output Urine Total 0 ml # Voids 4 General: Alert, Oriented X3, Cooperative, No Acute Distress, Other (mildly agiated at times) HEENT: Atraumatic, PERRLA, EOMI, Mucous Memb Moist/[place], Other (02 by N/C in place) Neck: Supple, No JVD Lungs: Clear to Auscultation Heart: Regular Rate Abdomen: Normal Bowel Sounds, Soft, No Tenderness Extremities: No Edema Skin: Other (incision site healing well) Neuro: Other (Generalized weakness) Psych/Mental Status: Other (restless at times) Results Lab Laboratory Tests 11/30/16 09:15: Prothrombin Time 19.5H, INR Comment 1.7H 12/01/16 08:50: Prothrombin Time 20.0H, INR Comment 1.7H, White Blood Count 17.3H, Red Blood Count 3.30L, Hemoglobin 9.8L, Hematocrit 31L, Mean Corpuscular Volume 95, Mean Corpuscular Hemoglobin 30, Mean Corpuscular Hemoglobin Concent 31L, Red Cell Distribution Width 16.7H, Platelet Count 392, Mean Platelet Volume 11.9H, Neutrophils (%) (Auto) 61, Lymphocytes (%) (Auto) 22, Monocytes (%) (Auto) 15H, Eosinophils (%) (Auto) 2, Basophils (%) (Auto) 0, Neutrophils # (Auto) 10.6H, Lymphocytes # (Auto) 3.9, Monocytes # (Auto) 2.5H, Eosinophils # (Auto) 0.3, Basophils # (Auto) 0.0, Sodium Level 137, Potassium Level 3.4L, Chloride Level 92L, Carbon Dioxide Level 33H, Anion Gap 12, Blood Urea Nitrogen 26H, Creatinine 3.65H, Estimat Glomerular Filtration Rate 12, BUN/Creatinine Ratio 7 , Glucose Level 133H, Calcium Level 9.3, Magnesium Level 2.0, Total Bilirubin 0.5, Aspartate Amino Transf (AST/SGOT) 67H, Alanine Aminotransferase (ALT/SGPT) < 6, Alkaline Phosphatase 453H, Total Protein 6.5, Albumin 3.4 12/02/16 08:40: Prothrombin Time 26.4H, INR Comment 2.5H, White Blood Count 17.0H, Red Blood Count 3.29L, Hemoglobin 10.0L, Hematocrit 32L, Mean Corpuscular Volume 96, Mean Corpuscular Hemoglobin 30, Mean Corpuscular Hemoglobin Concent 32, Red Cell Distribution Width 16.5H, Platelet Count 414H, Mean Platelet Volume 11.4H, Sodium Level 136, Potassium Level 3.7, Chloride Level 92L, Carbon Dioxide Level 29, Anion Gap 15H, Blood Urea Nitrogen 33H, Creatinine 4.85H, Estimat Glomerular Filtration Rate 9, BUN/Creatinine Ratio 7, Glucose Level 139H, Calcium Level 9.2, Total Bilirubin 0.4, Aspartate Amino Transf (AST/SGOT) 27, Alanine Aminotransferase (ALT/SGPT) < 6, Alkaline Phosphatase 413H, Total Protein 6.5, Albumin 3.3 Assessment/Plan Assessment C spine stenosis s/p decompression C3 thur C6 with anterior cervical discectomy and fusion DR Hand [facility] ESRD on dialysis TIW A FIB controlled with meds Chronic anticoagulation INR noted Postop anemia Plan Continue PT/OT F/U with DR [place] Trend INR and adjust Coumadin dose as needed THANG TONG MD Dec 02, 2016 21:23
--- NOTE | 2016-12-02 21:31 | Individualized Plan of Care ---
Individualized Plan of Care Rehab Nursing IPOC Order Admission Date Nov 30, 2016 at 06:05 Current Orders Orders Sodium 2g (2000 Mg) (12/02/16 Breakfast) Basic Metabolic Panel (12/03/16 06:00) Cbc No Diff (12/03/16 06:00) Patient Visit (12/02/16 ) Exercise Therap, Ea 15 Min (12/02/16 ) Functional Activities, Ea 15 (12/02/16 ) Gait Training, Ea 15 Min (12/02/16 ) Patient Visit (12/02/16 ) Functional Activities, Ea 15 (12/02/16 ) Toilet every (bladder): (hrs): 2 hours while awake PRN PT IPOC Problem List: Activity Tolerance, Functional Strength, Safety, Balance, Gait, Transfer, Bed Mobility Treatment Plan: Continue Plan of Care Bed Mobility, Education, Functional Activity Franco, Functional Strength, Group Therapy, Gait, Safety, Therapeutic Exercise, Transfers Treatment Duration: December 16, 2016 Visits Per Week: 10-15 Minutes/Day (M-F): 60-90 Minutes/Day (Sat/[place]): prn OT IPOC Problems: Decreased Activ Tolerance, Decreased UE Strength, Dependent Transfers , Impaired Coordination, Impaired Self-Care Skills OT Problems Pt to benefit from skilled OT intervention for ADL training, transfers, strengthening, and safety education to maximize level of function and allow return to assisted living facility. Plan of Care: ADL Retraining, Functional Mobility, Group Exercise/Act as Ind, UE Funct Exercise/Act, UE Neuromus Re-Ed/Coord Treatment Duration: December 21, 2016 Visits Per Week: 10-12 Minutes/Day (M-F): 60-90 Minutes/Day (Sat/[place]): PRN ST IPOC Speech Therapy Treatment Plan: Discontinue ST, Goals Met Treatment Duration: Dec 05, 2016 Visits Per Week: One to Three Minutes/Day (M-F): 30 Physician IPOC Medical Issues being managed closely and that require the 24 hour availability of a physician:A FIB anticoagulation with Coumadin and monitor INR ESRD on dialysis TIW Medical Issues: DVT Prophylaxis, Falls Precautions, Fluid/Electrolyte/ Nutrition Balance, Infection Protection, Pain Management, Swallowing Precautions , Wound Care, Other (List) (as per above) Brief Synthesis of Preadmission Screen, Post-Admission Evaluation, and Therapy Evaluations:81 yo female resident of [facility] who had been Modified Independent for ambulation with a walker who had a decline in functional [place] as a result of Cerivical Spinal stenosis.Had decompression with orthospine Referred to IRU with goal of return to PLOF which would facilitate her discharge back to [facility] Has some mild cognitive deficits which are baseline I believe and ST has signed off on her I Believe that she required some supervision for adls at [facility] due to this. PMH ESRD on dialysis 3 times a week for many years as well AFIB and chronic anticoagulation with coumadin INR being monitored with med adjusted as needed.Currently 02 dependent as well. Medical Prognosis: Good Anticipated Length of Stay: 12/16/16 Rehab Goals Return to PLOF as outlined above prior discharge back to [facility] Anticipated discharge destinat: [facility] with [facility] THANG TONG MD Dec 02, 2016 21:31
[2016-12-03] MEDS: HYDROcodone/APAP 7.5 MG/325 MG (LORTAB, LORCET PLUS) TABLET PO PRN ×2 (03:53→18:15)
[2016-12-03 05:40] VITALS: BP 169/73
[2016-12-03 05:55] LABS: MEAN PLATELET VOLUME 11.6 FL (7.4-10.4); RED BLOOD COUNT 2.97 10^6/uL (4.35-5.85); RED CELL DISTRIBUTION WIDTH 16.4 % (10.0-14.5); WHITE BLOOD COUNT 11.2 10^3/uL (4.3-11.0)
[2016-12-03] MEDS: SEVELAMER CARBONATE 800 MG TAB (RENVELA) NON-FORMULARY PO SCH ×3 (06:11→18:16)
[2016-12-03] MEDS: PANTOPRAZOLE 40 MG (PROTONIX) TAB PO SCH (06:11)
[2016-12-03 06:12] LABS: CALCIUM 8.3 MG/DL (8.5-10.1); CREATININE SERUM 3.14 MG/DL (0.60-1.30); POTASSIUM 3.4 MMOL/L (3.6-5.0)
[2016-12-03] MEDS: meTOproloL SUCCINATE 50 MG (TOPROL XL) TAB PO SCH (09:13)
--- NOTE | 2016-12-03 10:13 | Physical Therapy Daily Note ---
PT Daily Note-Current Subjective Patient agrees to PT. Pain Numeric Pain Scale: 5-Moderate Pain Location: Posterior, Anterior Location Body Site: Neck Pain Description: Acute Mental Status Patient Orientation: Normal For Age Transfers Functional [place] Measure 0=Not Assessed/NA 4=Minimal Assistance 1=Total Assistance 5=Supervision or Setup 2=Maximal Assistance 6=Modified [place] 3=Moderate Assistance 7=Complete IndependenceIRFPAI Quality Coding Scale 6 Independent with activity with or without an assistive device 5 Patient requires set up or clean up by helper. Patient completes activity by themselves 4 Supervision or touching assist (CGA). [place] provide cues , steadying assist 3 The helper provides less than half the effort to complete the activity 2 The helper provides more than half the effort to complete the activity 1 Dependent. The helper does all the effort to complete an activity 7 Patient refused to complete or attempt activity 9 The patient did not perform the activity before the current illness or injury 88 Not attempted due to Medical conditions or safety concerns Transfers (B, C, W/C) (FIM): 5 Scootin Rollin Roll Left to Right (QC): 5 Supine to/from Sit: 5 Sit to/from Stand: 5 Sit to Lying (QC): 5 Sit to Stand (QC): 5 Gait Training Does the Patient Walk?: Yes Gait (FIM): 5 Distance (FIM): 3=150 ft Distance: 150' Walk 10 feet (QC): 5 Walk 50 ft with 2 Turns(QC): 5 Walk 150 ft (QC): 5 Gait Level of Assist: 5 Gait Assistive Device: FWW functional gait sequence Assessment Patient is up in recliner with needs met. Patient adamantly declined cervical brace. Education with patient on importance of use, however, patient continued to declined use. PT Short Term Goals Short Term Goals Time Frame: Dec 07, 2016 Gait (FIM): 4 Distance (FIM): 3=150 ft Gait Assistive Device: FWW PT Check Out Cashier Goals Residential Goals PT Check Out Cashier Goals Time Frame: December 16, 2016 Transfers (B,C,W/C) (FIM): 6 Sit to Lying (QC): 6 Lying-Sitting on Side/Bed(QC): 6 Sit to Stand (QC): 6 Rollin Roll Left to Right (QC): 6 Chair/Kkf-rg-Ojmnh Xfer(QC): 6 Car Transfer (QC): 5 Does the Patient Walk: Yes Gait (FIM): 6 Gait distance (FIM): 3=150 ft Walk 10 feet (QC): 6 Walk 10ft-Uneven Surface(QC): 6 Walk 50ft with 2 Turns (QC): 6 Walk 150 ft (QC): 6 Gait Assistive Device: FWW Does the Pt use WC or Scooter?: No Stairs (FIM): 2 # of Steps: 4 1 Step (curb) (QC): 5 4 Steps (QC): 5 12 Steps (QC): 88 Picking up an Object (QC): 88 PT Plan Treatment/Plan Treatment Plan: Continue Plan of Care Treatment Plan: Bed Mobility, Education, Functional Activity Franco, Functional Strength, Group Therapy, Gait, Safety, Therapeutic Exercise, Transfers Treatment Duration: December 16, 2016 Visits Per Week: 10-15 Minutes/Day (M-F): 60-90 Minutes/Day (Sat/[place]): prn Time/GCodes Time In: 955 Time Out: 1010 Total Billed Treatment Time: 15 Total Billed Treatment 1 visit GT 15 min HASMUKH CASTILLO PT Dec 03, 2016 10:12
[2016-12-03 18:00] VITALS: BP 169/69
[2016-12-03] MEDS: warFARin 5 MG (COUMADIN) TAB PO SCH (18:14)
[2016-12-03] MEDS: ATORVASTATIN 10 MG (LIPITOR) TABLET PO SCH (20:39)
[2016-12-03] MEDS: FAMOTIDINE 20 MG (PEPCID) TABLET PO SCH (20:39)
[2016-12-03] MEDS: CINACALCET 30 MG PO SCH (20:39)
[2016-12-04] MEDS: HYDROcodone/APAP 7.5 MG/325 MG (LORTAB, LORCET PLUS) TABLET PO PRN ×2 (02:41→10:10)
[2016-12-04 04:11] VITALS: BP 167/70
[2016-12-04] MEDS: PANTOPRAZOLE 40 MG (PROTONIX) TAB PO SCH (06:19)
[2016-12-04] MEDS: meTOproloL SUCCINATE 50 MG (TOPROL XL) TAB PO SCH (09:48)
[2016-12-04] MEDS: SEVELAMER CARBONATE 800 MG TAB (RENVELA) NON-FORMULARY PO SCH ×3 (09:48→18:00)
[2016-12-04 17:44] VITALS: BP 162/60
[2016-12-04] MEDS: warFARin 5 MG (COUMADIN) TAB PO SCH ×2 (18:20→18:30)
[2016-12-04] MEDS: ATORVASTATIN 10 MG (LIPITOR) TABLET PO SCH (20:15)
[2016-12-04] MEDS: FAMOTIDINE 20 MG (PEPCID) TABLET PO SCH (20:15)
[2016-12-04] MEDS: CINACALCET 30 MG PO SCH (20:15)
[2016-12-05] MEDS: PANTOPRAZOLE 40 MG (PROTONIX) TAB PO SCH (06:18)
[2016-12-05 06:20] VITALS: BP 121/49
[2016-12-05 06:35] LABS: INR 4.8 (0.8-1.4)
[2016-12-05] MEDS: SEVELAMER CARBONATE 800 MG TAB (RENVELA) NON-FORMULARY PO SCH ×4 (07:53→19:01)
[2016-12-05] MEDS: HYDROcodone/APAP 7.5 MG/325 MG (LORTAB, LORCET PLUS) TABLET PO PRN (07:56)
--- NOTE | 2016-12-05 08:31 | Physical Therapy Daily Note ---
PT Daily Note-Current Subjective Agreeable to PT. Notes that she does have dialysis today. Throughout treatment , pt notes that her cervical collar is bothersome and makes it difficult to eat and to put her dentures in. She also complains of LBP> Pain Numeric Pain Scale: 5-Moderate Pain Location: Posterior Location Body Site: Back Pain Description: Ache Mental Status Patient Orientation: Person, Place, Time, Situation Attachments: Oxygen (insitu throughout treatment and post treatment) Transfers Functional [place] Measure 0=Not Assessed/NA 4=Minimal Assistance 1=Total Assistance 5=Supervision or Setup 2=Maximal Assistance 6=Modified [place] 3=Moderate Assistance 7=Complete IndependenceIRFPAI Quality Coding Scale 6 Independent with activity with or without an assistive device 5 Patient requires set up or clean up by helper. Patient completes activity by themselves 4 Supervision or touching assist (CGA). [place] provide cues , steadying assist 3 The helper provides less than half the effort to complete the activity 2 The helper provides more than half the effort to complete the activity 1 Dependent. The helper does all the effort to complete an activity 7 Patient refused to complete or attempt activity 9 The patient did not perform the activity before the current illness or injury 88 Not attempted due to Medical conditions or safety concerns Transfers (B, C, W/C) (FIM): 4 Scootin Rollin Roll Left to Right (QC): 4 Supine to/from Sit: 4 (CGA and skilled cues to sequence and to encourage to do for herself. ) Sit to/from Stand: 5 (SBA, leans forward and uses her legs only) Limited UE ROM makes bed mobility difficult. Sit to from supine x 2 reps during treatment; multiple sit to stand activities during treatment session. Gait Training Does the Patient Walk?: Yes Gait (FIM): 5 Gait Assistive Device: FWW Pt participated in several episodes of ambulation for 15 minutes of the treatment. She ambulated in her room and in and out of the bathroom with FWW with SBA. HEr distances varied from 30 ft to 150 ft. Pt has difficulty managing her walker on turns, but manages with use of cross bar in front of walker to turn it. Treatments PT treatment consisted of functional transfers and seated static/dynamic as well as standing static/dynamic balance activities as she participated in self care activities such as bathing herself with a bed bath at EOB requiring SBA for seated balance activities. Pt requires much assist to wash her body but participates as UE ROM allows. Shoulder flexion limited to 15-20 degrees. Multiple sit to from stand for venancio cleaning as well as to don pants. Pt stood at sink to wash hands, put in teeth and wash face, all with SB-CGA. Pt then sat at the table to eat breakfast. Working on pt opening her items on her tray and on feeding herself. Pt requires occas assist to lift right UE to get spoon to her mouth. She leans forward with her trunk to reach the spoon. During eating, short co treat with speech therapy (8-8:10). Pt had vocalized difficulty swallowing during breakfast, so ST addressed swallow whilst PT addressed feeding herself. Pt in room in bed post treatment with needs met. Assessment Current Status: Fair Progress Continues to need asssit with transfers and mobility. Requires frequent cuing to stay on task and do as much for herself as she can. UE ROM limits are a significant factor. Pt does well with sit to stand transfers and no noted LOB episodes with gait. PT Short Term Goals Short Term Goals Time Frame: Dec 07, 2016 Gait (FIM): 4 (met 12/05/16) Distance (FIM): 3=150 ft Gait Assistive Device: FWW PT Director Of District Office Goals Alf Goals PT Director Of District Office Goals Time Frame: December 16, 2016 Transfers (B,C,W/C) (FIM): 6 Sit to Lying (QC): 6 Lying-Sitting on Side/Bed(QC): 6 Sit to Stand (QC): 6 Rollin Roll Left to Right (QC): 6 Chair/Ilm-gj-Crewf Xfer(QC): 6 Car Transfer (QC): 5 Does the Patient Walk: Yes Gait (FIM): 6 Gait distance (FIM): 3=150 ft Walk 10 feet (QC): 6 Walk 10ft-Uneven Surface(QC): 6 Walk 50ft with 2 Turns (QC): 6 Walk 150 ft (QC): 6 Gait Assistive Device: FWW Does the Pt use WC or Scooter?: No Stairs (FIM): 2 # of Steps: 4 1 Step (curb) (QC): 5 4 Steps (QC): 5 12 Steps (QC): 88 Picking up an Object (QC): 88 PT Plan Problem List Problem List: Activity Tolerance, Functional Strength, Safety, Balance, Gait, Transfer, Bed Mobility Treatment/Plan Treatment Plan: Continue Plan of Care Treatment Plan: Bed Mobility, Education, Functional Activity Franco, Functional Strength, Group Therapy, Gait, Safety, Therapeutic Exercise, Transfers Treatment Duration: December 16, 2016 Visits Per Week: 10-15 Minutes/Day (M-F): 60-90 Minutes/Day (Sat/[place]): prn Safety Risks/Education Patient Education: Transfer Techniques, Safety Issues Teaching Recipient: Patient Teaching Methods: Demonstration, Discussion Response to Teaching: Reinforcement Needed Time/GCodes Time In: 705 Time Out: 830 Total Billed Treatment Time: 85 Total Billed Treatment visit GT 15 FA 55 Neuro 15 Co treat [phone] with JAVI GOODWIN PT Dec 05, 2016 08:31
--- NOTE | 2016-12-05 08:33 | Progress Note (SOAP) ---
Subjective Subjective/Events-last exam lumbar stenosis. Patient not happy today with her speech. INR prolonged to hold Coumadin Objective Exam Vital Signs Date Time Temp Pulse Resp B/P (MAP) Pulse Ox O2 Delivery O2 Flow Rate FiO2 12/05/16 06:20 96.5 62 18 121/49 96 Nasal Cannula 1.00 12/04/16 20:35 Nasal Cannula 2.00 12/04/16 17:44 97.9 66 18 162/60 96 Nasal Cannula 2.00 12/04/16 14:57 2.00 I & O 12/05/16 07:00 Intake Total 810 ml Balance 810 ml Capillary Refill : General Appearance: No Apparent Distress, WD/WN HEENT: Normal ENT Inspection Neck: Full Range of Motion, Non Tender Respiratory: Chest Non Tender, No Accessory Muscle Use, No Respiratory Distress Cardiovascular: Regular Rate, Rhythm, No Murmur Results Lab Laboratory Tests 12/05/16 05:27: Prothrombin Time 45.0H, INR Comment 4.8H Assessment/Plan Assessment/Plan Assess & Plan/Chief Complaint cervical stenosis. Debility. Renal failure. Hypertension. Hyperlipidemia. . Cervical stenosis. Debility. Renal failure. Hypertension. hyperlipidemia Clinical Quality Measures DVT/VTE Risk/Contraindication: Risk Factor Score Per Nursin RFS Level Per Nursing on Admit: 4+=Very High AN PEREZ DO Dec 05, 2016 08:33
[2016-12-05] MEDS: meTOproloL SUCCINATE 50 MG (TOPROL XL) TAB PO SCH (09:21)
--- NOTE | 2016-12-05 10:42 | Speech Therapy Daily Note ---
Speech Daily Progress Note Subjective Due to a colleagues concern regarding the patient's swallowing function, the speech pathologist co-treated with the physical therapist on this date. The speech pathologist assessed for signs/symptoms of aspiration with the patient's morning meal, while the physical therapist focused on upper extremity strength and coordination. Objective The patient's swallowing function was analyzed with her morning meal (biscuits and gravy, coffee, and morning medication). No signs/symptoms of aspiration were demonstrated with any consistency consumed on this date and the patient's vocal quality remained clear. The patient denied difficulty with pill administration (non-crushed with coffee). The clinician offered and discussed the advantages of crushing medication with the patient. The patient does not wish to crush medication at this time. If swallowing pills becomes bothersome in the future, crushing medication will continue to be an appropriate solution. Assessment Assessment Current Status: Good Progress Treatment Plan Discontinue ST, Goals Met Speech Short Term Goals Short Term Goals Short Term Goals 1. The patient will demonstrate swallowing strategies, independently, with 90% accuracy. Time Frame-STG: Two Days Speech Assisted Goals Zipper Setter Lockstitch Goals 1. The patient will tolerate the least restrictive diet without signs/symptoms of aspiration or laryngeal penetration. MET 12/01/16 Time Frame: Four Days Speech-Plan Treatment Plan Speech Therapy Treatment Plan: Discontinue ST, Goals Met Discontinue speech pathology as the patient continues to demonstrate safety with PO consumption. Treatment Duration: Dec 05, 2016 Rehab Potential: Fair Safety Risks/Education Teaching Recipient: Patient Teaching Methods: Discussion Response to Teaching: Verbalize Understanding Education Topics Provided: Results, Recommendations Time Speech Therapy Time In: 08:00 Speech Therapy Time Out: 08:10 Total Billed Time: 10 Billed Treatment Time 1, DYST: The speech pathologist co-treated with the physical therapist on this date. The speech pathologist assessed for signs/symptoms of aspiration with the patient's morning meal, while the physical therapist focused on upper extremity strength and coordination. ANSELMO PHILLIPS Dec 05, 2016 10:42
--- NOTE | 2016-12-05 15:07 | Occupational Ther Daily Note ---
OT Current Status-Daily Note Subjective Pt seen in room, in bed, reluctantly agreeable to OT. She c/o back pain but did not rate or describe it. Mental Status/Objective Functional [place] Measure 0=Not Assessed/NA 4=Minimal Assistance 1=Total Assistance 5=Supervision or Setup 2=Maximal Assistance 6=Modified [place] 3=Moderate Assistance 7=Complete [place] ADL-Treatment Functional [place] Measure 0=Not Assessed/NA 4=Minimal Assistance 1=Total Assistance 5=Supervision or Setup 2=Maximal Assistance 6=Modified [place] 3=Moderate Assistance 7=Complete IndependenceIRFPAI Quality Coding Scale 6 Independent with activity with or without an assistive device 5 Patient requires set up or clean up by helper. Patient completes activity by themselves 4 Supervision or touching assist (CGA). [place] provide cues , steadying assist 3 The helper provides less than half the effort to complete the activity 2 The helper provides more than half the effort to complete the activity 1 Dependent. The helper does all the effort to complete an activity 7 Patient refused to complete or attempt activity 9 The patient did not perform the activity before the current illness or injury 88 Not attempted due to Medical conditions or safety concerns Other Treatment Supine to sit EOB with min assist to help pt push herself up to sitting. She refused to put on her cervical collar and also refused to wear her oxygen. She walked with CGA for safety, FWW to w/c and was transported to gym per w/c. In the gym, she worked on bilat UE strengthening activities which would help her with supine to sit, transfers and ADLs. She di arc activity with no extension x 6 rings each arm. She needed a little bit of assistance to raise bilat arms enough to move the rings across the arc (for strengthening). She also worked with 1" pegs in removing and placing them, which worked on reaching at the shoulders. She was able to toss and release beanbags with R hand but needed some skilled cues and repetition to be able to let go of them with L hand. Pt was returned to her room and prepped for transportation to dialysis. Education OT Patient Education: Exercise program, Purpose of tx/functional activities, Transfer techniques Teaching Recipient: Patient Teaching Methods: Demonstration, Discussion Response to Teaching: Verbalize Understanding OT Short Term Goals Short Term Goals Time Frame: Dec 07, 2016 Eating(FIM): 3 Grooming(FIM): 3 Upper Body Dressing(FIM): 3 Toileting(FIM): 2 Additional Short Term Goals: 1-Demonstrate ADL Tasks, 2-Verbalize Understanding , 3-ImproveStrength/Franco 1=Demonstrate adherence to instructed precautions during ADL tasks. 2=Patient will verbalize/demonstrate understanding of assistive devices/ modifications for ADL. 3=Patient will improve strength/tolerance for activity to enable patient to perform ADL's. OT Director Of Cardiopulmonary Services Goals [facility] Goals Time Frame: December 21, 2016 Eating (FIM): 5 Eating (QC): 5 Groomin Oral Hygiene (QC): 5 Bathing(FIM): 4 Shower/Bathe Self (QC): 3 Upper Body Dressing(FIM): 4 Upper Body Dressing (QC): 3 Lower Body Dressing(FIM): 4 Lower Body Dressing (QC): 3 On/Off Footwear (QC): 3 Toileting(FIM): 4 Toileting Hygiene (QC): 3 Toilet/Commode Transfer(FIM): 6 Toilet/Commode Transfer (QC): 6 Shower Transfer(FIM): 5 Additional Goals: 1-Demonstrate ADL Tasks, 2-Verbalize Understanding, 3- ImproveStrength/Franco 1=Demonstrate adherence to instructed precautions during ADL tasks. 2=Patient will verbalize/demonstrate understanding of assistive devices/ modifications for ADL. 3=Patient will improve strength/tolerance for activity to enable patient to perform ADL's. OT Education/Plan Problem List/Assessment Pt to benefit from skilled OT intervention for ADL training, transfers, strengthening, and safety education to maximize level of function and allow return to assisted living facility. Discharge Recommendations Plan/Recommendations: Continue POC Treatment Plan/Plan of Care Patient would benefit from OT for education, treatment and training to promote independence in ADL's, mobility, safety and/or upper extremity function for ADL' s. Plan of Care: ADL Retraining, Functional Mobility, Group Exercise/Act as Ind, UE Funct Exercise/Act, UE Neuromus Re-Ed/Coord Treatment Duration: December 21, 2016 Visits Per Week: 10-12 Minutes/Day (M-F): 60-90 Minutes/Day (Sat/[place]): PRN Rehab Potential: Fair Time/GCodes Start Time: 08:30 Stop Time: 09:30 Total Time Billed (hr/min): 60 Billed Treatment Time visit, 60 minutes exercise MARIA C GOOD OT Dec 05, 2016 15:07
[2016-12-05 18:21] VITALS: BP 170/50
--- NOTE | 2016-12-05 18:48 | PM & R (SOAP) Progress Note ---
Subjective Subjective/Events-last exam Patient was seen in her room this evening Patient min assist for transfers Labs including elevated INR noted Patient c/o left shoulder pain Review of Systems Musculoskeletal: shoulder pain Objective Exam Last Set of Vital Signs Vital Signs Date Time Temp Pulse Resp B/P (MAP) Pulse Ox O2 Delivery O2 Flow Rate FiO2 12/05/16 09:00 Nasal Cannula 2.00 12/05/16 06:20 96.5 62 18 121/49 96 Capillary Refill : I&O Intake and Output 12/05/16 00:00 Intake Total 910 ml Balance 910 ml Intake Oral 910 ml # Bowel Movements 1 General: Alert, Oriented X3, Cooperative, No Acute Distress, Other (mildly agiated at times) HEENT: Atraumatic, PERRLA, EOMI, Mucous Memb Moist/[place], Other (02 by N/C in place) Neck: Supple, No JVD Lungs: Clear to Auscultation Heart: Regular Rate Abdomen: Normal Bowel Sounds, Soft, No Tenderness Extremities: No Edema, Other (left shoulder non tender to touch) Skin: Other (incision site healing well) Neuro: Other (Generalized weakness) Psych/Mental Status: Other (restless at times) Results Lab Laboratory Tests 12/03/16 05:30: White Blood Count 11.2H, Red Blood Count 2.97L, Hemoglobin 9.0L, Hematocrit 29L , Mean Corpuscular Volume 97, Mean Corpuscular Hemoglobin 30, Mean Corpuscular Hemoglobin Concent 31L, Red Cell Distribution Width 16.4H, Platelet Count 373, Mean Platelet Volume 11.6H, Sodium Level 140, Potassium Level 3.4L, Chloride Level 96L, Carbon Dioxide Level 31, Anion Gap 13, Blood Urea Nitrogen 15, Creatinine 3.14H, Estimat Glomerular Filtration Rate 14, BUN/Creatinine Ratio 5 , Glucose Level 105, Calcium Level 8.3L 12/05/16 05:27: Prothrombin Time 45.0H, INR Comment 4.8H Assessment/Plan Assessment C spine stenosis s/p decompression C3 thur C6 with anterior cervical discectomy and fusion DR Hand [facility] ESRD on dialysis TIW A FIB controlled with meds Chronic anticoagulation INR noted Postop anemia Hypokalemia Left shoulder pain Plan Continue PT/OT F/U with DR [place] Trend INR and adjust Coumadin dose as needed Voltaran gel for shoulder pain See orders Repeat labs TONG,THANG E MD Dec 05, 2016 18:48
[2016-12-05] MEDS: FAMOTIDINE 20 MG (PEPCID) TABLET PO SCH (20:29)
[2016-12-05] MEDS: BISACODYL 5 MG (DULCOLAX) TABLET PO PRN (20:29)
[2016-12-05] MEDS: ATORVASTATIN 10 MG (LIPITOR) TABLET PO SCH (20:30)
[2016-12-05] MEDS: CINACALCET 30 MG PO SCH (20:30)
[2016-12-05] MEDS: DICLOFENAC 1% GEL 100 GM (VOLTAREN) TUBE TOP SCH (20:30)
[2016-12-06 06:19] LABS: MEAN PLATELET VOLUME 10.8 FL (7.4-10.4); RED BLOOD COUNT 3.23 10^6/uL (4.35-5.85); RED CELL DISTRIBUTION WIDTH 16.6 % (10.0-14.5); WHITE BLOOD COUNT 14.5 10^3/uL (4.3-11.0)
[2016-12-06] MEDS: PANTOPRAZOLE 40 MG (PROTONIX) TAB PO SCH (06:19)
[2016-12-06 06:22] VITALS: BP 175/60
[2016-12-06 06:24] LABS: INR 3.5 (0.8-1.4); PROTHROMBIN TIME PATIENT 35.1 SEC (12.2-14.7)
[2016-12-06 06:36] LABS: CALCIUM 8.7 MG/DL (8.5-10.1); CREATININE SERUM 3.53 MG/DL (0.60-1.30); POTASSIUM 3.3 MMOL/L (3.6-5.0)
[2016-12-06] MEDS: HYDROcodone/APAP 7.5 MG/325 MG (LORTAB, LORCET PLUS) TABLET PO PRN ×3 (08:20→17:15)
[2016-12-06] MEDS: meTOproloL SUCCINATE 50 MG (TOPROL XL) TAB PO SCH (08:24)
--- NOTE | 2016-12-06 08:47 | Progress Note (SOAP) ---
Subjective Subjective/Events-last exam cervical stenosis. Renal failure. Patient just having nonspecific complaints Leukocytosis Objective Exam Vital Signs Date Time Temp Pulse Resp B/P (MAP) Pulse Ox O2 Delivery O2 Flow Rate FiO2 12/06/16 07:24 2.00 12/06/16 06:22 96.2 62 16 175/60 100 Nasal Cannula 1.50 12/05/16 18:21 97.5 66 14 170/50 98 Nasal Cannula 1.00 12/05/16 09:00 Nasal Cannula 2.00 I & O 12/06/16 07:00 Intake Total 420 ml Balance 420 ml Capillary Refill : General Appearance: No Apparent Distress, WD/WN Results Lab Laboratory Tests 12/06/16 06:00 Laboratory Tests 12/06/16 06:00: White Blood Count 14.5H, Red Blood Count 3.23L, Hemoglobin 9.7L, Hematocrit 31L , Mean Corpuscular Volume 96, Mean Corpuscular Hemoglobin 30, Mean Corpuscular Hemoglobin Concent 31L, Red Cell Distribution Width 16.6H, Platelet Count 424H, Mean Platelet Volume 10.8H, Prothrombin Time 35.1H, INR Comment 3.5H, Sodium Level 137, Potassium Level 3.3L, Chloride Level 95L, Carbon Dioxide Level 30, Anion Gap 12, Blood Urea Nitrogen 13, Creatinine 3.53H, Estimat Glomerular Filtration Rate 12, BUN/Creatinine Ratio 4, Glucose Level 103, Calcium Level 8.7 Assessment/Plan Assessment/Plan Assess & Plan/Chief Complaint cervical stenosis. Debility. Renal failure. Hypertension. Hyperlipidemia. . Cervical stenosis. Debility. Renal failure. Hypertension. hyperlipidemia. . . Cervical stenosis. Renal failure. Hypertension. Patient just doesn't feel good but doesn't know why Clinical Quality Measures DVT/VTE Risk/Contraindication: Risk Factor Score Per Nursin RFS Level Per Nursing on Admit: 4+=Very High AN PEREZ DO Dec 06, 2016 08:47
[2016-12-06] MEDS: DICLOFENAC 1% GEL 100 GM (VOLTAREN) TUBE TOP SCH ×4 (09:00→20:34)
--- NOTE | 2016-12-06 09:46 | Physical Therapy Daily Note ---
PT Daily Note-Current Subjective Reports she doesnt feel well. Unable to specify a location or what isnt right, just that "I dont feel well." "I thought therapy would make me better but it hasn't." Mental Status Patient Orientation: Person, Place, Time, Situation Transfers Functional [place] Measure 0=Not Assessed/NA 4=Minimal Assistance 1=Total Assistance 5=Supervision or Setup 2=Maximal Assistance 6=Modified [place] 3=Moderate Assistance 7=Complete IndependenceIRFPAI Quality Coding Scale 6 Independent with activity with or without an assistive device 5 Patient requires set up or clean up by helper. Patient completes activity by themselves 4 Supervision or touching assist (CGA). [place] provide cues , steadying assist 3 The helper provides less than half the effort to complete the activity 2 The helper provides more than half the effort to complete the activity 1 Dependent. The helper does all the effort to complete an activity 7 Patient refused to complete or attempt activity 9 The patient did not perform the activity before the current illness or injury 88 Not attempted due to Medical conditions or safety concerns Repositioned in bed to attempt to make more comfortable. SBA with rolling with skilled cues to sequence. Max assist scooting up in bed. Moved legs and arms and pillows to adjust for comfort. Assessment Current Status: Fair Progress Pt needs frequent cues to attend to herself and not ask staff to do it all for her. Needs encouragement to participate with therapy. PT Short Term Goals Short Term Goals Time Frame: Dec 07, 2016 Gait (FIM): 4 (met 12/05/16) Distance (FIM): 3=150 ft Gait Assistive Device: FWW PT Usp Goals Binder Sorter Goals PT Binder Sorter Goals Time Frame: December 16, 2016 Transfers (B,C,W/C) (FIM): 6 Sit to Lying (QC): 6 Lying-Sitting on Side/Bed(QC): 6 Sit to Stand (QC): 6 Rollin Roll Left to Right (QC): 6 Chair/Evt-wl-Ddijt Xfer(QC): 6 Car Transfer (QC): 5 Does the Patient Walk: Yes Gait (FIM): 6 Gait distance (FIM): 3=150 ft Walk 10 feet (QC): 6 Walk 10ft-Uneven Surface(QC): 6 Walk 50ft with 2 Turns (QC): 6 Walk 150 ft (QC): 6 Gait Assistive Device: FWW Does the Pt use WC or Scooter?: No Stairs (FIM): 2 # of Steps: 4 1 Step (curb) (QC): 5 4 Steps (QC): 5 12 Steps (QC): 88 Picking up an Object (QC): 88 PT Plan Problem List Problem List: Activity Tolerance, Functional Strength Treatment/Plan Treatment Plan: Continue Plan of Care Treatment Plan: Bed Mobility, Education, Functional Activity Franco, Functional Strength, Group Therapy, Gait, Safety, Therapeutic Exercise, Transfers Treatment Duration: December 16, 2016 Visits Per Week: 10-15 Minutes/Day (M-F): 60-90 Minutes/Day (Sat/[place]): prn Time/GCodes Time In: 800 Time Out: 815 Total Billed Treatment Time: 15 Total Billed Treatment visit FA 15 JAVI LEONG PT Dec 06, 2016 09:46
[2016-12-06] MEDS: SEVELAMER CARBONATE 800 MG TAB (RENVELA) NON-FORMULARY PO SCH ×3 (09:47→18:53)
--- NOTE | 2016-12-06 09:54 | Occupational Ther Daily Note ---
OT Current Status-Daily Note Subjective Pt. often will state that she can't do something. No pain reported. Appearance Pt. is in bed. Agrees to shower. Mental Status/Objective Patient Orientation: Person, Place, Time, Situation Functional [place] Measure 0=Not Assessed/NA 4=Minimal Assistance 1=Total Assistance 5=Supervision or Setup 2=Maximal Assistance 6=Modified [place] 3=Moderate Assistance 7=Complete [place] ADL-Treatment Functional [place] Measure 0=Not Assessed/NA 4=Minimal Assistance 1=Total Assistance 5=Supervision or Setup 2=Maximal Assistance 6=Modified [place] 3=Moderate Assistance 7=Complete IndependenceIRFPAI Quality Coding Scale 6 Independent with activity with or without an assistive device 5 Patient requires set up or clean up by helper. Patient completes activity by themselves 4 Supervision or touching assist (CGA). [place] provide cues , steadying assist 3 The helper provides less than half the effort to complete the activity 2 The helper provides more than half the effort to complete the activity 1 Dependent. The helper does all the effort to complete an activity 7 Patient refused to complete or attempt activity 9 The patient did not perform the activity before the current illness or injury 88 Not attempted due to Medical conditions or safety concerns Grooming (FIM): 2 (Pt. attempts to brush hair, but can't get hands up to head. Attempts to bend over, but pt. has cervical precautions. Requires max assistance. Mod assist to get teeth out. OT puts them into container to soak them. OT rinses them and pt. is able to put them in her mouth.) Oral Hygiene (QC): 3 Bathing (FIM): 2 (Pt. requires constant cues to try for herself. Pt. is able to wash top of legs, but has difficulty getting everything else. OT washes pt. hair continuously.) Shower/Bathe Self (QC): 2 Upper Body (FIM): 2 (Pt. is able to reach out arms somewhat while OT dons shirt over arms and head. Max assist needed for this.) Upper Body Dressing (QC): 2 Lower Body Dressing (FIM): 2 Lower Body Dressing (QC): 2 On/Off Footwear (QC): 1 Toileting (FIM): 2 (Pt. will not intitiate washing rear venancio area.) Toileting Hygiene (QC): 2 Transfers (B, C, W/C) (FIM): 4 Toilet/Commode Transfer (FIM): 4 Toilet Transfer (QC): 4 Shower Transfer(FIM): 4 Other Treatment OT/PT co-treated due to pt.'s inability to do for self, as well as fatigue level. Pt. required max assist to do for self. Pt. required multiple rest breaks. OT initiated ADL tasks and showering, while PT focused on transfer techniques, breathing, posture, and precautions. Pt. requested to remove oxygen during shower. 02 sats stayed at 96% during treatment. Pt. will often state that she can't do something, but at times can in fact do it with encouragement. Requested for OT to scratch her leg. When OT could not get the spot that she wanted, she reached down and scratched it herself. Stated, "I didn't know I could do that." Ambulated out to dining area to eat breakfast after treatment. OT provided ariana cup, built up handles for utensils, and hand sponge to squeeze to decrease swelling. All needs were met. Pt. was able to demonstrate ability to use ariana cup. All needs met up in chair. Education OT Patient Education: Correct positioning, Exercise program, Modified ADL techniques, Progress toward Goal/Update tx plan, Purpose of tx/functional activities, Reviewed precautions, Rehab process, Transfer techniques Teaching Recipient: Patient Teaching Methods: Demonstration, Discussion Response to Teaching: Verbalize Understanding, Return Demonstration OT Short Term Goals Short Term Goals Time Frame: Dec 07, 2016 Eating(FIM): 3 Grooming(FIM): 3 Upper Body Dressing(FIM): 3 Toileting(FIM): 2 Additional Short Term Goals: 1-Demonstrate ADL Tasks, 2-Verbalize Understanding , 3-ImproveStrength/Franco 1=Demonstrate adherence to instructed precautions during ADL tasks. 2=Patient will verbalize/demonstrate understanding of assistive devices/ modifications for ADL. 3=Patient will improve strength/tolerance for activity to enable patient to perform ADL's. OT Senior Living Goals Senior Living Goals Time Frame: December 21, 2016 Eating (FIM): 5 Eating (QC): 5 Groomin Oral Hygiene (QC): 5 Bathing(FIM): 4 Shower/Bathe Self (QC): 3 Upper Body Dressing(FIM): 4 Upper Body Dressing (QC): 3 Lower Body Dressing(FIM): 4 Lower Body Dressing (QC): 3 On/Off Footwear (QC): 3 Toileting(FIM): 4 Toileting Hygiene (QC): 3 Toilet/Commode Transfer(FIM): 6 Toilet/Commode Transfer (QC): 6 Shower Transfer(FIM): 5 Additional Goals: 1-Demonstrate ADL Tasks, 2-Verbalize Understanding, 3- ImproveStrength/Franco 1=Demonstrate adherence to instructed precautions during ADL tasks. 2=Patient will verbalize/demonstrate understanding of assistive devices/ modifications for ADL. 3=Patient will improve strength/tolerance for activity to enable patient to perform ADL's. OT Education/Plan Problem List/Assessment Assessment: Decreased Activ Tolerance, Decreased UE Strength, Dependent Transfers, Impaired Bed Mobility, Impaired Funct Balance, Impaired I ADL's, Impaired Self-Care Skills Pt to benefit from skilled OT intervention for ADL training, transfers, strengthening, and safety education to maximize level of function and allow return to assisted living facility. Discharge Recommendations Plan/Recommendations: Continue POC Therapy D/C Recommendations: 24 hr Supervision, Snf (TCU/NH) Barriers to Progress Pt. is somewhat self limiting. Target Placement Pt. at this time requires max assist for most tasks, and does not seem to have motivation to want to do for self. Treatment Plan/Plan of Care Treatment,Training & Education: Yes Patient would benefit from OT for education, treatment and training to promote independence in ADL's, mobility, safety and/or upper extremity function for ADL' s. Plan of Care: ADL Retraining, Functional Mobility, Group Exercise/Act as Ind, UE Funct Exercise/Act, UE Neuromus Re-Ed/Coord Treatment Duration: December 21, 2016 Visits Per Week: 10-12 Minutes/Day (M-F): 60-90 Minutes/Day (Sat/[place]): PRN Rehab Potential: Fair Time/GCodes Start Time: 08:30 Stop Time: 09:30 Total Time Billed (hr/min): 60 Billed Treatment Time 1, ADL x 4 co-treat with PT Please see above note to lisa designated roles. YARA DEL ANGEL OT Dec 06, 2016 09:54
--- NOTE | 2016-12-06 09:55 | Physical Therapy Daily Note ---
PT Daily Note-Current Subjective During treatment, therapists doing the bulk of the work for the patient and when asked if she thought the TOM would do all this for her she responded, "I don't think so." Pt mentioned that if she needed to go elsewhere, she thought about [facility]. Mental Status Patient Orientation: Person, Place, Time, Situation Transfers Functional [place] Measure 0=Not Assessed/NA 4=Minimal Assistance 1=Total Assistance 5=Supervision or Setup 2=Maximal Assistance 6=Modified [place] 3=Moderate Assistance 7=Complete IndependenceIRFPAI Quality Coding Scale 6 Independent with activity with or without an assistive device 5 Patient requires set up or clean up by helper. Patient completes activity by themselves 4 Supervision or touching assist (CGA). [place] provide cues , steadying assist 3 The helper provides less than half the effort to complete the activity 2 The helper provides more than half the effort to complete the activity 1 Dependent. The helper does all the effort to complete an activity 7 Patient refused to complete or attempt activity 9 The patient did not perform the activity before the current illness or injury 88 Not attempted due to Medical conditions or safety concerns Treatments Co treatment with OT due to extensive nature of needs. Pt to shower this date. OT addressed ADL's such as removing clothing, showering and dressing whilst PT addressed Functional transfers with multiple sit to from stand reps, seated static and dynamic balance as well as standing dynamic and static balance. Frequent reminders for safety and hand placment with cues for ways to do things in the easiest manner. Pt did transfer sup to sit EOB with min assist and HOB elevated. Sit to stand is CGA all attempts with skilled cues to sequence. Stood at sink to put in teeth with cGA. Pt ambulated in room distances with FWW with SB-CGA. Pt ambulated x 100 ft to solarium to eat breakfast. Pt left at table for her breakfast. Assessment Current Status: Fair Progress Transfers and gait are progressing but ability to perform self care limited. Pt requires extensive assist and cues to assist in participation for optimal self care participation. PT Short Term Goals Short Term Goals Time Frame: Dec 07, 2016 Gait (FIM): 4 (met 12/05/16) Distance (FIM): 3=150 ft Gait Assistive Device: FWW PT Custodial Goals Custodial Goals PT Keypuncher Goals Time Frame: December 16, 2016 Transfers (B,C,W/C) (FIM): 6 Sit to Lying (QC): 6 Lying-Sitting on Side/Bed(QC): 6 Sit to Stand (QC): 6 Rollin Roll Left to Right (QC): 6 Chair/Dnw-tv-Kwvpo Xfer(QC): 6 Car Transfer (QC): 5 Does the Patient Walk: Yes Gait (FIM): 6 Gait distance (FIM): 3=150 ft Walk 10 feet (QC): 6 Walk 10ft-Uneven Surface(QC): 6 Walk 50ft with 2 Turns (QC): 6 Walk 150 ft (QC): 6 Gait Assistive Device: FWW Does the Pt use WC or Scooter?: No Stairs (FIM): 2 # of Steps: 4 1 Step (curb) (QC): 5 4 Steps (QC): 5 12 Steps (QC): 88 Picking up an Object (QC): 88 PT Plan Problem List Problem List: Activity Tolerance, Functional Strength Treatment/Plan Treatment Plan: Continue Plan of Care Treatment Plan: Bed Mobility, Education, Functional Activity Franco, Functional Strength, Group Therapy, Gait, Safety, Therapeutic Exercise, Transfers Treatment Duration: December 16, 2016 Visits Per Week: 10-15 Minutes/Day (M-F): 60-90 Minutes/Day (Sat/[place]): prn Safety Risks/Education Patient Education: Transfer Techniques, Safety Issues Teaching Recipient: Patient Teaching Methods: Demonstration, Discussion Response to Teaching: Reinforcement Needed Time/GCodes Time In: 830 Time Out: 930 Total Billed Treatment Time: 60 Total Billed Treatment visit FA 60 Co treat with JAKE. JAVI LEONG PT Dec 06, 2016 09:55
[2016-12-06] MEDS ORDERED: KCL 20 MEQ TAB (K-DUR) PO NR (10:45)
--- NOTE | 2016-12-06 11:38 | Physical Therapy Daily Note ---
PT Daily Note-Current Subjective Wants to return to bed to lie down. Agrees to a short walk before going to bed. Transfers Functional [place] Measure 0=Not Assessed/NA 4=Minimal Assistance 1=Total Assistance 5=Supervision or Setup 2=Maximal Assistance 6=Modified [place] 3=Moderate Assistance 7=Complete IndependenceIRFPAI Quality Coding Scale 6 Independent with activity with or without an assistive device 5 Patient requires set up or clean up by helper. Patient completes activity by themselves 4 Supervision or touching assist (CGA). [place] provide cues , steadying assist 3 The helper provides less than half the effort to complete the activity 2 The helper provides more than half the effort to complete the activity 1 Dependent. The helper does all the effort to complete an activity 7 Patient refused to complete or attempt activity 9 The patient did not perform the activity before the current illness or injury 88 Not attempted due to Medical conditions or safety concerns Gait Training Does the Patient Walk?: Yes Gait (FIM): 4 Distance (FIM): 3=150 ft Walk 10 feet (QC): 5 Walk 50 ft with 2 Turns(QC): 4 Walk 150 ft (QC): 4 Gait Assistive Device: FWW Gait x 150 ft and 50 ft with FWW with CGA. Treatments Sit to supine with CGA for legs and skilled cues to sequence task. In bed post treatment with needs met and oxygen in situ. Assessment Pt fatigued. PT Short Term Goals Short Term Goals Time Frame: Dec 07, 2016 Gait (FIM): 4 (met 12/05/16) Distance (FIM): 3=150 ft Gait Assistive Device: FWW PT Half-Way Goals Half-Way Goals PT Half-Way Goals Time Frame: December 16, 2016 Transfers (B,C,W/C) (FIM): 6 Sit to Lying (QC): 6 Lying-Sitting on Side/Bed(QC): 6 Sit to Stand (QC): 6 Rollin Roll Left to Right (QC): 6 Chair/Skf-pn-Yylbg Xfer(QC): 6 Car Transfer (QC): 5 Does the Patient Walk: Yes Gait (FIM): 6 Gait distance (FIM): 3=150 ft Walk 10 feet (QC): 6 Walk 10ft-Uneven Surface(QC): 6 Walk 50ft with 2 Turns (QC): 6 Walk 150 ft (QC): 6 Gait Assistive Device: FWW Does the Pt use WC or Scooter?: No Stairs (FIM): 2 # of Steps: 4 1 Step (curb) (QC): 5 4 Steps (QC): 5 12 Steps (QC): 88 Picking up an Object (QC): 88 PT Plan Problem List Problem List: Activity Tolerance, Functional Strength, Safety, Gait, Transfer, Bed Mobility Treatment/Plan Treatment Plan: Continue Plan of Care Treatment Plan: Bed Mobility, Education, Functional Activity Franco, Functional Strength, Group Therapy, Gait, Safety, Therapeutic Exercise, Transfers Treatment Duration: December 16, 2016 Visits Per Week: 10-15 Minutes/Day (M-F): 60-90 Minutes/Day (Sat/[place]): prn Time/GCodes Time In: 945 Time Out: 1000 Total Billed Treatment Time: 15 Total Billed Treatment visit GT 15 JAVI LEONG PT Dec 06, 2016 11:38
[2016-12-06] MEDS: BISACODYL 5 MG (DULCOLAX) TABLET PO PRN (13:35)
--- NOTE | 2016-12-06 15:07 | Occupational Ther Daily Note ---
OT Current Status-Daily Note Subjective Pt. reports pain in lower abdomen, but does not state a pain level. Nursing gives her pain medication. Pt. states that it may be because she has not had a bowel movement. However, states that she doesn't know if she wants a stool softener. Pt. does finally agree to one. Nursing administers this. Appearance Pt. is in bed. Agrees to complete bilateral UE exercises. However, perseverates on lower abdominal pain. Pt. asks to stand at side of bed. This became the focus of the treatment. Mental Status/Objective Patient Orientation: Person Functional [place] Measure 0=Not Assessed/NA 4=Minimal Assistance 1=Total Assistance 5=Supervision or Setup 2=Maximal Assistance 6=Modified [place] 3=Moderate Assistance 7=Complete [place] ADL-Treatment Functional [place] Measure 0=Not Assessed/NA 4=Minimal Assistance 1=Total Assistance 5=Supervision or Setup 2=Maximal Assistance 6=Modified [place] 3=Moderate Assistance 7=Complete IndependenceIRFPAI Quality Coding Scale 6 Independent with activity with or without an assistive device 5 Patient requires set up or clean up by helper. Patient completes activity by themselves 4 Supervision or touching assist (CGA). [place] provide cues , steadying assist 3 The helper provides less than half the effort to complete the activity 2 The helper provides more than half the effort to complete the activity 1 Dependent. The helper does all the effort to complete an activity 7 Patient refused to complete or attempt activity 9 The patient did not perform the activity before the current illness or injury 88 Not attempted due to Medical conditions or safety concerns Pt. able to transfer to side of bed, supine-sit with min assist. Stood at side of bed approximately 10 minutes with CGA. Took several small side steps to HOB. Sat back down and requested to lay down. At this point, but declines to do much for self. Will not attempt to control the buttons on her bed to raise her head. OT hands pt. small hand sponge to work on hand strength. Pt. starts to squeeze, but then falls asleep. OT wakes her up. Pt. somewhat upset. Demands for OT to move pillow. Will not attempt to do for herself. All needs met in the bed. Education OT Patient Education: Exercise program, Modified ADL techniques, Progress toward Goal/Update tx plan, Purpose of tx/functional activities, Reviewed precautions, Rehab process, Transfer techniques Teaching Recipient: Patient Teaching Methods: Demonstration, Discussion Response to Teaching: Verbalize Understanding, Return Demonstration OT Short Term Goals Short Term Goals Time Frame: Dec 07, 2016 Eating(FIM): 3 Grooming(FIM): 3 Upper Body Dressing(FIM): 3 Toileting(FIM): 2 Additional Short Term Goals: 1-Demonstrate ADL Tasks, 2-Verbalize Understanding , 3-ImproveStrength/Franco 1=Demonstrate adherence to instructed precautions during ADL tasks. 2=Patient will verbalize/demonstrate understanding of assistive devices/ modifications for ADL. 3=Patient will improve strength/tolerance for activity to enable patient to perform ADL's. OT Tattoo And Body Artist Goals Fpc Goals Time Frame: December 21, 2016 Eating (FIM): 5 Eating (QC): 5 Groomin Oral Hygiene (QC): 5 Bathing(FIM): 4 Shower/Bathe Self (QC): 3 Upper Body Dressing(FIM): 4 Upper Body Dressing (QC): 3 Lower Body Dressing(FIM): 4 Lower Body Dressing (QC): 3 On/Off Footwear (QC): 3 Toileting(FIM): 4 Toileting Hygiene (QC): 3 Toilet/Commode Transfer(FIM): 6 Toilet/Commode Transfer (QC): 6 Shower Transfer(FIM): 5 Additional Goals: 1-Demonstrate ADL Tasks, 2-Verbalize Understanding, 3- ImproveStrength/Franco 1=Demonstrate adherence to instructed precautions during ADL tasks. 2=Patient will verbalize/demonstrate understanding of assistive devices/ modifications for ADL. 3=Patient will improve strength/tolerance for activity to enable patient to perform ADL's. OT Education/Plan Problem List/Assessment Assessment: Decreased Activ Tolerance, Decreased UE Strength, Dependent Transfers, Impaired Bed Mobility, Impaired Funct Balance, Impaired I ADL's, Impaired Self-Care Skills Pt to benefit from skilled OT intervention for ADL training, transfers, strengthening, and safety education to maximize level of function and allow return to assisted living facility. Discharge Recommendations Plan/Recommendations: Continue POC Therapy D/C Recommendations: 24 hr Supervision Treatment Plan/Plan of Care Treatment,Training & Education: Yes Patient would benefit from OT for education, treatment and training to promote independence in ADL's, mobility, safety and/or upper extremity function for ADL' s. Plan of Care: ADL Retraining, Functional Mobility, Group Exercise/Act as Ind, UE Funct Exercise/Act, UE Neuromus Re-Ed/Coord Treatment Duration: December 21, 2016 Visits Per Week: 10-12 Minutes/Day (M-F): 60-90 Minutes/Day (Sat/[place]): PRN Rehab Potential: Fair Time/GCodes Start Time: 13:30 Stop Time: 14:00 Total Time Billed (hr/min): 30 Billed Treatment Time 1, FA x 15minutes, EX x 15minutes YARA DEL ANGEL OT Dec 06, 2016 15:07
--- NOTE | 2016-12-06 16:07 | Occupational Ther Daily Note ---
OT Current Status-Daily Note Subjective Pt seen inroom, up in bed, agreeable to OT. pt reported some discomfort in her bottom, calling it hemorrhoids Mental Status/Objective Functional [place] Measure 0=Not Assessed/NA 4=Minimal Assistance 1=Total Assistance 5=Supervision or Setup 2=Maximal Assistance 6=Modified [place] 3=Moderate Assistance 7=Complete [place] ADL-Treatment All ADLS took longer than usual. Pt was able to move from supine to sit with just min assist to help her come up on L arm and cues for hand placement. She asked for help to put pants over feet but did help pull them up to her thighs. help for slipper socksShe stood with SBA, FWW and need a little help to pull pants up in back (she helped as well). She transferred to recliner with CGA, FWW , struggling a little to find good hand placement on FWW. Pt could not seem to get comfortable and asked to get back into bed. She transferred to EOB with FWW , CGA. Pt needed help to get slipper socks off and skilled cues to problem solve transitioning back to supine. She needed just a little help getting her feet into bed. Pt had difficulty scooting bottom over in bed. O2 nc throughout tx. Pt left up in bed, getting a drink from [employer] cup, all needs met, 4 rails up. Functional [place] Measure 0=Not Assessed/NA 4=Minimal Assistance 1=Total Assistance 5=Supervision or Setup 2=Maximal Assistance 6=Modified [place] 3=Moderate Assistance 7=Complete IndependenceIRFPAI Quality Coding Scale 6 Independent with activity with or without an assistive device 5 Patient requires set up or clean up by helper. Patient completes activity by themselves 4 Supervision or touching assist (CGA). [place] provide cues , steadying assist 3 The helper provides less than half the effort to complete the activity 2 The helper provides more than half the effort to complete the activity 1 Dependent. The helper does all the effort to complete an activity 7 Patient refused to complete or attempt activity 9 The patient did not perform the activity before the current illness or injury 88 Not attempted due to Medical conditions or safety concerns Education OT Patient Education: Progress toward Goal/Update tx plan, Purpose of tx/ functional activities, Transfer techniques Teaching Recipient: Patient Teaching Methods: Demonstration, Discussion Response to Teaching: Reinforcement Needed OT Short Term Goals Short Term Goals Time Frame: Dec 07, 2016 Eating(FIM): 3 Grooming(FIM): 3 Upper Body Dressing(FIM): 3 Toileting(FIM): 2 Additional Short Term Goals: 1-Demonstrate ADL Tasks, 2-Verbalize Understanding , 3-ImproveStrength/Franco 1=Demonstrate adherence to instructed precautions during ADL tasks. 2=Patient will verbalize/demonstrate understanding of assistive devices/ modifications for ADL. 3=Patient will improve strength/tolerance for activity to enable patient to perform ADL's. OT Cloth Beamer Goals Cloth Beamer Goals Time Frame: December 21, 2016 Eating (FIM): 5 Eating (QC): 5 Groomin Oral Hygiene (QC): 5 Bathing(FIM): 4 Shower/Bathe Self (QC): 3 Upper Body Dressing(FIM): 4 Upper Body Dressing (QC): 3 Lower Body Dressing(FIM): 4 Lower Body Dressing (QC): 3 On/Off Footwear (QC): 3 Toileting(FIM): 4 Toileting Hygiene (QC): 3 Toilet/Commode Transfer(FIM): 6 Toilet/Commode Transfer (QC): 6 Shower Transfer(FIM): 5 Additional Goals: 1-Demonstrate ADL Tasks, 2-Verbalize Understanding, 3- ImproveStrength/Franco 1=Demonstrate adherence to instructed precautions during ADL tasks. 2=Patient will verbalize/demonstrate understanding of assistive devices/ modifications for ADL. 3=Patient will improve strength/tolerance for activity to enable patient to perform ADL's. OT Education/Plan Problem List/Assessment Pt to benefit from skilled OT intervention for ADL training, transfers, strengthening, and safety education to maximize level of function and allow return to assisted living facility. Discharge Recommendations Plan/Recommendations: Continue POC Treatment Plan/Plan of Care Patient would benefit from OT for education, treatment and training to promote independence in ADL's, mobility, safety and/or upper extremity function for ADL' s. Plan of Care: ADL Retraining, Functional Mobility, Group Exercise/Act as Ind, UE Funct Exercise/Act, UE Neuromus Re-Ed/Coord Treatment Duration: December 21, 2016 Visits Per Week: 10-12 Minutes/Day (M-F): 60-90 Minutes/Day (Sat/[place]): PRN Rehab Potential: Fair Time/GCodes Start Time: 14:30 Stop Time: 14:55 Total Time Billed (hr/min): 25 Billed Treatment Time visit, 25 minutes ADL MARIA C GOOD OT Dec 06, 2016 16:07
--- NOTE | 2016-12-06 16:38 | Diagnostic Imaging Report ---
INDICATION: Abdominal and back pain. COMPARISON STUDY: Pelvis from 10/31/2016. FINDINGS: An AP view of the abdomen demonstrates post operative changes to the right upper quadrant and lumbar spine. Punctate calcifications are seen overlying the pancreas, consistent with chronic pancreatitis. The bowel gas pattern appears normal. Degenerative changes are seen in the sacroiliac joints. Healed pubic rami fractures are present. IMPRESSION: No acute findings are present. Degenerative changes are present. Calcifications are seen in the pancreas, consistent with calcific pancreatitis. Bilateral pleural effusions are present. Dictated by: Dictated on workstation # [id number]
--- NOTE | 2016-12-06 16:40 | Diagnostic Imaging Report ---
EXAMINATION: Two views of the lumbar spine. INDICATION: Abdominal pain. Back pain. FINDINGS: There is posterior fusion with transpedicular screws involving the L3 to L5 levels. There is mild anterior translation of L4 over L5. The vertebral body heights are preserved. The disc heights are relatively preserved except for disc height loss of a mild to moderate degree at the L5-S1 level with significant degenerative sclerosis. There is no acute compression fracture. Multilevel mild anterior osteophytes are seen. IMPRESSION: Post lower lumbar spine fusion changes with background degenerative changes and mild L4 over L5 spondylolisthesis. Dictated by: Dictated on workstation # [id number]
[2016-12-06] MEDS: BISACODYL 10 MG SUPP (DULCOLAX) PR PRN (17:19)
[2016-12-06 18:26] VITALS: BP 192/75
--- NOTE | 2016-12-06 19:11 | PM & R (SOAP) Progress Note ---
Subjective Subjective/Events-last exam Patient was seen in her room this AM Patient min assist for transfers Apprciate therapy notes and DR Kothari notes and current labs and orders Appreciate Xrays of Abdomen and lumbar spine Objective Exam Last Set of Vital Signs Vital Signs Date Time Temp Pulse Resp B/P (MAP) Pulse Ox O2 Delivery O2 Flow Rate FiO2 12/06/16 13:57 1.50 12/06/16 06:22 96.2 62 16 175/60 100 Nasal Cannula Capillary Refill : I&O Intake and Output 12/06/16 00:00 Intake Total 420 ml Balance 420 ml Intake Oral 420 ml # Voids 1 # Bowel Movements 2 General: Alert, Oriented X3, Cooperative, No Acute Distress, Other (mildly agiated at times) HEENT: Atraumatic, PERRLA, EOMI, Mucous Memb Moist/[place], Other (02 by N/C in place) Neck: Supple, No JVD Lungs: Clear to Auscultation Heart: Regular Rate Abdomen: Normal Bowel Sounds, Soft, No Tenderness Extremities: No Edema, Other (left shoulder non tender to touch) Skin: Other (incision site healing well) Neuro: Other (Generalized weakness) Psych/Mental Status: Other (restless at times) Results Lab Laboratory Tests 12/05/16 05:27: Prothrombin Time 45.0H, INR Comment 4.8H 12/06/16 06:00: Prothrombin Time 35.1H, INR Comment 3.5H, White Blood Count 14.5H, Red Blood Count 3.23L, Hemoglobin 9.7L, Hematocrit 31L, Mean Corpuscular Volume 96, Mean Corpuscular Hemoglobin 30, Mean Corpuscular Hemoglobin Concent 31L, Red Cell Distribution Width 16.6H, Platelet Count 424H, Mean Platelet Volume 10.8H, Sodium Level 137, Potassium Level 3.3L, Chloride Level 95L, Carbon Dioxide Level 30, Anion Gap 12, Blood Urea Nitrogen 13, Creatinine 3.53H, Estimat Glomerular Filtration Rate 12, BUN/Creatinine Ratio 4, Glucose Level 103, Calcium Level 8.7 Assessment/Plan Assessment C spine stenosis s/p decompression C3 thur C6 with anterior cervical discectomy and fusion DR Hand [facility] ESRD on dialysis TIW A FIB controlled with meds Chronic anticoagulation INR noted Postop anemia Hypokalemia-treated Left shoulder pain Back pain Bilateral pleural effusions Plan Continue PT/OT F/U with DR fairbanks Trend INR and adjust Coumadin dose as needed Voltaran gel for shoulder pain See orders Repeat labs Team Conference tomorrow F/U with DR fairbanks re imaging reports THANG TONG MD Dec 06, 2016 19:11
[2016-12-06 20:30] VITALS: BP 176/62
[2016-12-06] MEDS: FAMOTIDINE 20 MG (PEPCID) TABLET PO SCH (20:33)
[2016-12-06] MEDS: CINACALCET 30 MG PO SCH (20:33)
[2016-12-06] MEDS: ATORVASTATIN 10 MG (LIPITOR) TABLET PO SCH (20:33)
[2016-12-07 04:47] VITALS: BP 172/64
[2016-12-07] MEDS: PANTOPRAZOLE 40 MG (PROTONIX) TAB PO SCH (06:26)
[2016-12-07] MEDS: SEVELAMER CARBONATE 800 MG TAB (RENVELA) NON-FORMULARY PO SCH ×3 (06:27→17:31)
[2016-12-07 06:46] LABS: MEAN PLATELET VOLUME 11.1 FL (7.4-10.4); RED BLOOD COUNT 3.15 10^6/uL (4.35-5.85); RED CELL DISTRIBUTION WIDTH 16.6 % (10.0-14.5); WHITE BLOOD COUNT 16.1 10^3/uL (4.3-11.0)
[2016-12-07 06:49] LABS: INR 3.4 (0.8-1.4); PROTHROMBIN TIME PATIENT 34.2 SEC (12.2-14.7)
[2016-12-07 07:00] LABS: CALCIUM 9.2 MG/DL (8.5-10.1); CREATININE SERUM 4.77 MG/DL (0.60-1.30); POTASSIUM 3.5 MMOL/L (3.6-5.0)
[2016-12-07] MEDS: meTOproloL SUCCINATE 50 MG (TOPROL XL) TAB PO SCH (08:09)
[2016-12-07] MEDS: DICLOFENAC 1% GEL 100 GM (VOLTAREN) TUBE TOP SCH ×4 (08:09→20:36)
[2016-12-07] MEDS: HYDROcodone/APAP 7.5 MG/325 MG (LORTAB, LORCET PLUS) TABLET PO PRN (08:10)
--- NOTE | 2016-12-07 08:37 | Progress Note (SOAP) ---
Subjective Subjective/Events-last exam patient not feeling well today. Patient has some bleeding from the Hemorrhoids. Consult with surgeon. cervical stenosis Objective Exam Vital Signs Date Time Temp Pulse Resp B/P (MAP) Pulse Ox O2 Delivery O2 Flow Rate FiO2 12/07/16 04:47 97.1 64 16 172/64 96 Nasal Cannula 1.50 12/06/16 20:30 68 176/62 12/06/16 18:26 97.5 63 16 192/75 95 12/06/16 13:57 1.50 I & O 12/07/16 07:00 Intake Total 760 ml Balance 760 ml Capillary Refill : General Appearance: No Apparent Distress, WD/WN Respiratory: Lungs Clear, Normal Breath Sounds, No Accessory Muscle Use, No Respiratory Distress Results Lab Laboratory Tests 12/07/16 06:19 Laboratory Tests 12/07/16 06:19: White Blood Count 16.1H, Red Blood Count 3.15L, Hemoglobin 9.6L, Hematocrit 30L , Mean Corpuscular Volume 95, Mean Corpuscular Hemoglobin 31, Mean Corpuscular Hemoglobin Concent 32, Red Cell Distribution Width 16.6H, Platelet Count 433H, Mean Platelet Volume 11.1H, Prothrombin Time 34.2H, INR Comment 3.4H, Sodium Level 136, Potassium Level 3.5L, Chloride Level 93L, Carbon Dioxide Level 30, Anion Gap 13, Blood Urea Nitrogen 20H, Creatinine 4.77H, Estimat Glomerular Filtration Rate 9, BUN/Creatinine Ratio 4, Glucose Level 88, Calcium Level 9.2 Assessment/Plan Assessment/Plan Assess & Plan/Chief Complaint cervical stenosis. Debility. Renal failure. Hypertension. Hyperlipidemia. . Cervical stenosis. Debility. Renal failure. Hypertension. hyperlipidemia. . . Cervical stenosis. Renal failure. Hypertension. Patient just doesn't feel good but doesn't know why. . 12/07/16. Cervical stenosis. Renal failure . Leukocytosis. Blood in the stools has internal Hemorrhoids. Consult with surgeon Clinical Quality Measures DVT/VTE Risk/Contraindication: Risk Factor Score Per Nursin RFS Level Per Nursing on Admit: 4+=Very High AN PEREZ DO Dec 07, 2016 08:37
--- NOTE | 2016-12-07 09:11 | Physical Therapy Daily Note ---
PT Daily Note-Current Subjective Agrees to PT only after much encouragement. Reports she hurts "all over". unable to rate or describe. "I hurt over and under". "I just dont feel well." She is able to pinpoint what she feels is hemorrhoid pain. She does not rate it..."honey, I dont know a number"; FLACC 7/10. Mental Status Patient Orientation: Person, Place, Time, Situation Transfers Functional [place] Measure 0=Not Assessed/NA 4=Minimal Assistance 1=Total Assistance 5=Supervision or Setup 2=Maximal Assistance 6=Modified [place] 3=Moderate Assistance 7=Complete IndependenceIRFPAI Quality Coding Scale 6 Independent with activity with or without an assistive device 5 Patient requires set up or clean up by helper. Patient completes activity by themselves 4 Supervision or touching assist (CGA). [place] provide cues , steadying assist 3 The helper provides less than half the effort to complete the activity 2 The helper provides more than half the effort to complete the activity 1 Dependent. The helper does all the effort to complete an activity 7 Patient refused to complete or attempt activity 9 The patient did not perform the activity before the current illness or injury 88 Not attempted due to Medical conditions or safety concerns Transfers (B, C, W/C) (FIM): 4 Roll Left to Right (QC): 3 Supine to/from Sit: 4 Sit to/from Stand: 4 Sit to Lying (QC): 3 Sit to Stand (QC): 4 Chair/Dxq-sp-Cgnqe Xfer(QC): 4 Car Transfer (QC): 4 (per OT report; completed car transfer to go to dialysis) Pt requires min assist with sup to from sit to assist with her leg adjustment. She is able to transfer sit to stand with CGA and skilled cues for safety andhand placement. Pt tends to lean heavy forward with sit to stand and has hands placed on the walker. She transfers stand to sit without reaching back, despite constant cues to do so. Sup to from sit x 1 during treatment. Multiple sit to stand transfers from varied surface heights and surface textures. Gait Training Does the Patient Walk?: Yes Gait (FIM): 5 Distance (FIM): 3=150 ft Walk 10 feet (QC): 5 Walk 50 ft with 2 Turns(QC): 5 Walk 150 ft (QC): 5 Walking 10ft/uneven surface-QC: 88 Gait Assistive Device: FWW SBA with gait for supervision for safety. Pt tends to lean with 1 arm on the walker or she holds the walker at the center bar. Pt ambulated a multiple of gait distances that varied from 10-50 ft in her room, in/out of the bathroom with multiple turns with FWW with SBA. Pt ambulated in the montes requiring multiple turns as well. Pt ambulated varied distance while completing ADL's with OT and participating in self care activities. Pt does demonstrate decreased foot clearance with gait and short step length; often keeps her head down, despite cervical collar being in place. Stair Training Stairs (FIM): 1 (unsafe to attempt; limited foot clearance and not necessary for discharge home. ) 1 Step (curb) (QC): 88 4 Steps (QC): 88 12 Steps (QC): 88 Balance Picking up an Object (QC): 88 (unsafe to attempt) Treatments Attempted Nu step but pt unable to tolerate sitting on the seat. Partial co treat with OT; while OT addressed self care and dressing, pt worked on seated dynamic balance and safety as well as correct sequencing with sit to from stand transfers; also addressed safety with mobility in the room to completed ADL tasks. In addition, worked on positioning on the toilet while OT addressed pericare and positioning as well. Pt benefits from the treatment of 2 skilled clinicians simultaneously due to high need for cues and assist. Assessment Current Status: Fair Progress Constant cues to participate necessary. Pt frequently answers with "I can't" before trying. This writer technical publications does feel that the patient does have pain and discomfort but she is limited in tolerating functional activity with therapy services at this level of intensity. PT Short Term Goals Short Term Goals Time Frame: Dec 07, 2016 Gait (FIM): 4 (met 12/05/16) Distance (FIM): 3=150 ft Gait Assistive Device: FWW PT Global Cmo Goals Fpc Goals PT Fpc Goals Time Frame: December 16, 2016 Transfers (B,C,W/C) (FIM): 6 Sit to Lying (QC): 6 Lying-Sitting on Side/Bed(QC): 6 Sit to Stand (QC): 6 Rollin Roll Left to Right (QC): 6 Chair/Rqa-dv-Jdepi Xfer(QC): 6 Car Transfer (QC): 5 Does the Patient Walk: Yes Gait (FIM): 6 Gait distance (FIM): 3=150 ft Walk 10 feet (QC): 6 Walk 10ft-Uneven Surface(QC): 6 Walk 50ft with 2 Turns (QC): 6 Walk 150 ft (QC): 6 Gait Assistive Device: FWW Does the Pt use WC or Scooter?: No Stairs (FIM): 2 # of Steps: 4 1 Step (curb) (QC): 5 4 Steps (QC): 5 12 Steps (QC): 88 Picking up an Object (QC): 88 PT Plan Problem List Problem List: Activity Tolerance, Functional Strength, Safety, Balance, Gait, Transfer, Bed Mobility Treatment/Plan Treatment Plan: Continue Plan of Care Treatment Plan: Bed Mobility, Education, Functional Activity Franco, Functional Strength, Group Therapy, Gait, Safety, Therapeutic Exercise, Transfers Treatment Duration: December 16, 2016 Visits Per Week: 10-15 Minutes/Day (M-F): 60-90 Minutes/Day (Sat/[place]): prn Safety Risks/Education Patient Education: Transfer Techniques, Safety Issues Teaching Recipient: Patient Teaching Methods: Demonstration Response to Teaching: Reinforcement Needed Discussed with patient the importance of participation and pushing herself for optimal recovery and to maintain the possiblity of returning to her TOM. Time/GCodes Time In: 725 (755) Time Out: 755 (855) Total Billed Treatment Time: 90 Total Billed Treatment visit x 2 GT 45 FA 45 Co treat with OT [id number] JAVI LEONG PT Dec 07, 2016 09:11
--- NOTE | 2016-12-07 09:56 | Occupational Ther Daily Note ---
OT Current Status-Daily Note Subjective Pt. will state that she is hurting. Does not state a pain level, or a specific spot. Pt. has already had a pain pill. Appearance Pt. is sitting on side of bed when OT entered room. OT comes in during PT treatment, to assist with pt., as she is unable to tolerate full treatment. Mental Status/Objective Patient Orientation: Unable to Assess Functional [place] Measure 0=Not Assessed/NA 4=Minimal Assistance 1=Total Assistance 5=Supervision or Setup 2=Maximal Assistance 6=Modified [place] 3=Moderate Assistance 7=Complete [place] ADL-Treatment Functional [place] Measure 0=Not Assessed/NA 4=Minimal Assistance 1=Total Assistance 5=Supervision or Setup 2=Maximal Assistance 6=Modified [place] 3=Moderate Assistance 7=Complete IndependenceIRFPAI Quality Coding Scale 6 Independent with activity with or without an assistive device 5 Patient requires set up or clean up by helper. Patient completes activity by themselves 4 Supervision or touching assist (CGA). [place] provide cues , steadying assist 3 The helper provides less than half the effort to complete the activity 2 The helper provides more than half the effort to complete the activity 1 Dependent. The helper does all the effort to complete an activity 7 Patient refused to complete or attempt activity 9 The patient did not perform the activity before the current illness or injury 88 Not attempted due to Medical conditions or safety concerns Upper Body (FIM): 2 (Pt. requires dependent assistance with her neck brace. Max assist required to don shirt. Pt. is encouraged to do for self, and at least grasp shirt to help facilitate it over arms. Will often say that she cant , but when pressed, is able to help some.) Upper Body Dressing (QC): 2 Lower Body Dressing (FIM): 2 (Pt. is able to help with encouragement. Able to pull feet up to assist into holes. Then is able to pull some over hips. Requires encouragement throughout treatment. Does not want to do for self.) Lower Body Dressing (QC): 2 On/Off Footwear (QC): 1 Toileting (FIM): 2 (Max assist to doff pants over hips. Max assist to cleanse rear venancio area. Max assist to pull pants back up.) Transfers (B, C, W/C) (FIM): 4 (Min assist for supine-sit, and sit-stand.) Toilet/Commode Transfer (FIM): 4 Other Treatment OT/PT co-treated due to pt's fatigue level, and need for skilled assistance. PT facilitated balance on side of bed, appropriate posture, and gait. OT facilitated ADL skills, including dressing and toileting. Pt. requires frequent cues to do for self. Does not seem to understand that she can't go back to previous living situation if she can't take care of self. OT/PT took intermittent walks with walker onto elevator, and then into chapel. Pt would state that she needed to sit down, but then once sitting, would state that she needed to stand up. Pt. has difficulty articulating where she is hurting. States, "down and below." OT facilitated hand strengthening exercises with hand sponge to decrease swelling and increase overall strength. Pt. would squeeze a couple of times, and then fall asleep. Once awake would state that she was hurting, but then would fall asleep again. PT facilitated LE strengthening with sit-stands when pt. could tolerate it. OT finished treatment by assisting pt. into car/taxi with min assist needed. Pt. going to dialysis. Education OT Patient Education: Correct positioning, Exercise program, Modified ADL techniques, Progress toward Goal/Update tx plan, Purpose of tx/functional activities, Reviewed precautions, Rehab process, Transfer techniques Teaching Recipient: Patient Teaching Methods: Demonstration, Discussion Response to Teaching: Verbalize Understanding, Return Demonstration OT Short Term Goals Short Term Goals Time Frame: Dec 07, 2016 Eating(FIM): 3 Grooming(FIM): 3 Upper Body Dressing(FIM): 3 Toileting(FIM): 2 Additional Short Term Goals: 1-Demonstrate ADL Tasks, 2-Verbalize Understanding , 3-ImproveStrength/Franco 1=Demonstrate adherence to instructed precautions during ADL tasks. 2=Patient will verbalize/demonstrate understanding of assistive devices/ modifications for ADL. 3=Patient will improve strength/tolerance for activity to enable patient to perform ADL's. OT Penitentiary Goals Penitentiary Goals Time Frame: December 21, 2016 Eating (FIM): 5 Eating (QC): 5 Groomin Oral Hygiene (QC): 5 Bathing(FIM): 4 Shower/Bathe Self (QC): 3 Upper Body Dressing(FIM): 4 Upper Body Dressing (QC): 3 Lower Body Dressing(FIM): 4 Lower Body Dressing (QC): 3 On/Off Footwear (QC): 3 Toileting(FIM): 4 Toileting Hygiene (QC): 3 Toilet/Commode Transfer(FIM): 6 Toilet/Commode Transfer (QC): 6 Shower Transfer(FIM): 5 Additional Goals: 1-Demonstrate ADL Tasks, 2-Verbalize Understanding, 3- ImproveStrength/Franco 1=Demonstrate adherence to instructed precautions during ADL tasks. 2=Patient will verbalize/demonstrate understanding of assistive devices/ modifications for ADL. 3=Patient will improve strength/tolerance for activity to enable patient to perform ADL's. OT Education/Plan Problem List/Assessment Assessment: Decreased Activ Tolerance, Decreased Safety Aware, Decreased UE Strength, Dependent Transfers, Edema, Impaired Bed Mobility, Impaired Cognition , Impaired Coordination, Impaired Funct Balance, Impaired I ADL's, Impaired Self -Care Skills, Restricted Funct UE ROM Pt to benefit from skilled OT intervention for ADL training, transfers, strengthening, and safety education to maximize level of function and allow return to assisted living facility. Discharge Recommendations Plan/Recommendations: Continue POC Therapy D/C Recommendations: 24 hr Supervision Treatment Plan/Plan of Care Treatment,Training & Education: Yes Patient would benefit from OT for education, treatment and training to promote independence in ADL's, mobility, safety and/or upper extremity function for ADL' s. Plan of Care: ADL Retraining, Functional Mobility, Group Exercise/Act as Ind, UE Funct Exercise/Act, UE Neuromus Re-Ed/Coord Treatment Duration: December 21, 2016 Visits Per Week: 10-12 Minutes/Day (M-F): 60-90 Minutes/Day (Sat/[place]): PRN Rehab Potential: Fair Time/GCodes Start Time: 07:55 Stop Time: 09:25 Total Time Billed (hr/min): 90 Billed Treatment Time 1, ADL x 30minutes, FA x 60minutes YARA DEL ANGEL OT Dec 07, 2016 09:56
--- NOTE | 2016-12-07 15:58 | PM & R (SOAP) Progress Note ---
Subjective Subjective/Events-last exam Patient was seen in her room this AM Patient mod assist for transfers Has various complaints which limit her participation in therapies at times Her TOM has declined her to retrun to their facility SW has arranged for discaheg to a local MT for ongoing care Her WBC is rising and ABD xray showed bilateral Pleural effusion as well as prior Lumbar spine surgery Will F/U with Labs and CXR See orders. Objective Exam Last Set of Vital Signs Vital Signs Date Time Temp Pulse Resp B/P (MAP) Pulse Ox O2 Delivery O2 Flow Rate FiO2 12/07/16 08:00 96 1.50 12/07/16 04:47 97.1 64 16 172/64 Nasal Cannula Capillary Refill : I&O Intake and Output 12/07/16 00:00 Intake Total 600 ml Balance 600 ml Intake Oral 600 ml # Voids 1 # Bowel Movements 1 General: Alert, Oriented X3, Cooperative, No Acute Distress, Other (mildly agiated at times) HEENT: Atraumatic, PERRLA, EOMI, Mucous Memb Moist/[place], Other (02 by N/C in place) Neck: Supple, No JVD Lungs: Clear to Auscultation Heart: Regular Rate Abdomen: Normal Bowel Sounds, Soft, No Tenderness Extremities: No Edema, Other (left shoulder non tender to touch) Skin: Other (incision site healing well) Neuro: Other (Generalized weakness) Psych/Mental Status: Other (restless at times) Results Lab Laboratory Tests 12/05/16 05:27: Prothrombin Time 45.0H, INR Comment 4.8H 12/06/16 06:00: Prothrombin Time 35.1H, INR Comment 3.5H, White Blood Count 14.5H, Red Blood Count 3.23L, Hemoglobin 9.7L, Hematocrit 31L, Mean Corpuscular Volume 96, Mean Corpuscular Hemoglobin 30, Mean Corpuscular Hemoglobin Concent 31L, Red Cell Distribution Width 16.6H, Platelet Count 424H, Mean Platelet Volume 10.8H, Sodium Level 137, Potassium Level 3.3L, Chloride Level 95L, Carbon Dioxide Level 30, Anion Gap 12, Blood Urea Nitrogen 13, Creatinine 3.53H, Estimat Glomerular Filtration Rate 12, BUN/Creatinine Ratio 4, Glucose Level 103, Calcium Level 8.7 12/07/16 06:19: Prothrombin Time 34.2H, INR Comment 3.4H, White Blood Count 16.1H, Red Blood Count 3.15L, Hemoglobin 9.6L, Hematocrit 30L, Mean Corpuscular Volume 95, Mean Corpuscular Hemoglobin 31, Mean Corpuscular Hemoglobin Concent 32, Red Cell Distribution Width 16.6H, Platelet Count 433H, Mean Platelet Volume 11.1H, Sodium Level 136, Potassium Level 3.5L, Chloride Level 93L, Carbon Dioxide Level 30, Anion Gap 13, Blood Urea Nitrogen 20H, Creatinine 4.77H, Estimat Glomerular Filtration Rate 9, BUN/Creatinine Ratio 4, Glucose Level 88, Calcium Level 9.2 Assessment/Plan Assessment C spine stenosis s/p decompression C3 thur C6 with anterior cervical discectomy and fusion DR Hand [facility] ESRD on dialysis TIW A FIB controlled with meds Chronic anticoagulation INR noted Postop anemia Hypokalemia-treated Left shoulder pain Back pain Bilateral pleural effusions Plan Continue PT/OT F/U with DR fairbanks Trend INR and adjust Coumadin dose as needed Voltaran gel for shoulder pain See orders Repeat labs-as well as obtain U/A and CXR-See orders Team Conference held earlier today-See report for full functional update and POC Possible discharge tomorrow to [facility] if F/U tests OK and patient feeling better F/U with DR fairbanks re imaging reports THANG TONG MD Dec 07, 2016 15:58
[2016-12-07] MEDS ORDERED: FLEET ENEMA ADULT 1 EA BTL PR PRN (16:00)
--- NOTE | 2016-12-07 16:40 | Diagnostic Imaging Report ---
INDICATION: Shortness of breath. EXAMINATION: PA and lateral chest. FINDINGS: Heart size and pulmonary vascularity are within normal limits. There are small bilateral pleural effusions. There is no pneumothorax. IMPRESSION: Small bilateral pleural effusions. These appear to be new since comparison exam of 03/27/2017. Dictated by: Dictated on workstation # [id number]
[2016-12-07 18:15] VITALS: BP 177/80
[2016-12-07] MEDS: CINACALCET 30 MG PO SCH (20:37)
[2016-12-07] MEDS: ATORVASTATIN 10 MG (LIPITOR) TABLET PO SCH (20:37)
[2016-12-07] MEDS: FAMOTIDINE 20 MG (PEPCID) TABLET PO SCH (20:37)
[2016-12-08] MEDS: BISACODYL 10 MG SUPP (DULCOLAX) PR PRN (01:05)
[2016-12-08 05:46] VITALS: BP 153/70
[2016-12-08] MEDS: PANTOPRAZOLE 40 MG (PROTONIX) TAB PO SCH (06:25)
[2016-12-08] MEDS: BISACODYL 5 MG (DULCOLAX) TABLET PO PRN (07:04)
[2016-12-08] MEDS: meTOproloL SUCCINATE 50 MG (TOPROL XL) TAB PO SCH (07:57)
[2016-12-08] MEDS: DICLOFENAC 1% GEL 100 GM (VOLTAREN) TUBE TOP SCH ×4 (07:57→20:56)
--- NOTE | 2016-12-08 08:26 | Progress Note (SOAP) ---
Subjective Subjective/Events-last exam cervical stenosis. Patient has not had a bowel movement. Patient has soft stool in the rectum. Patient not a happy camper today Objective Exam Vital Signs Date Time Temp Pulse Resp B/P (MAP) Pulse Ox O2 Delivery O2 Flow Rate FiO2 12/08/16 05:46 98.2 81 20 153/70 95 Room Air 12/07/16 22:50 1.50 12/07/16 20:45 1.50 12/07/16 18:15 97.8 66 16 177/80 93 Room Air I & O 12/08/16 07:00 Intake Total 300 ml Balance 300 ml Capillary Refill : General Appearance: No Apparent Distress, WD/WN Neck: Normal Inspection Respiratory: No Accessory Muscle Use, No Respiratory Distress Gastrointestinal: non tender, soft Assessment/Plan Assessment/Plan Assess & Plan/Chief Complaint cervical stenosis. Debility. Renal failure. Hypertension. Hyperlipidemia. . Cervical stenosis. Debility. Renal failure. Hypertension. hyperlipidemia. . . Cervical stenosis. Renal failure. Hypertension. Patient just doesn't feel good but doesn't know why. . 12/07/16. Cervical stenosis. Renal failure . Leukocytosis. Blood in the stools has internal Hemorrhoids. Consult with surgeon. . Cervical stenosis. Debility. Renal failure. 12/08/16. Patient constipated to have fleets enema Clinical Quality Measures DVT/VTE Risk/Contraindication: Risk Factor Score Per Nursin RFS Level Per Nursing on Admit: 4+=Very High AN PEREZ DO Dec 08, 2016 08:26
--- NOTE | 2016-12-08 08:27 | PM & R (SOAP) Progress Note ---
Subjective Subjective/Events-last exam Patient was seen in her room this AM C/O aches all over Abdomen soft and nontender AM labs Pending Discussed case with DR Meier Will repeat CXR in AM to check on small pleural effusions Discharge on hold for today due to medical issues.Patient Min to Mod assist for transfers depending on her various complaints Objective Exam Last Set of Vital Signs Vital Signs Date Time Temp Pulse Resp B/P (MAP) Pulse Ox O2 Delivery O2 Flow Rate FiO2 12/08/16 05:46 98.2 81 20 153/70 95 Room Air 12/07/16 22:50 1.50 Capillary Refill : I&O Intake and Output 12/08/16 00:00 Intake Total 510 ml Balance 510 ml Intake Oral 510 ml # Voids 1 # Bowel Movements 1 General: Alert, Oriented X3, Cooperative, No Acute Distress, Other (mildly agiated at times) HEENT: Atraumatic, PERRLA, EOMI, Mucous Memb Moist/[place], Other (02 by N/C in place) Neck: Supple, No JVD Lungs: Clear to Auscultation Heart: Regular Rate Abdomen: Normal Bowel Sounds, Soft, No Tenderness Extremities: No Edema, Other (left shoulder non tender to touch) Skin: Other (incision site healing well) Neuro: Other (Generalized weakness) Psych/Mental Status: Other (restless at times) Results Lab Laboratory Tests 12/06/16 06:00: White Blood Count 14.5H, Red Blood Count 3.23L, Hemoglobin 9.7L, Hematocrit 31L , Mean Corpuscular Volume 96, Mean Corpuscular Hemoglobin 30, Mean Corpuscular Hemoglobin Concent 31L, Red Cell Distribution Width 16.6H, Platelet Count 424H, Mean Platelet Volume 10.8H, Prothrombin Time 35.1H, INR Comment 3.5H, Sodium Level 137, Potassium Level 3.3L, Chloride Level 95L, Carbon Dioxide Level 30, Anion Gap 12, Blood Urea Nitrogen 13, Creatinine 3.53H, Estimat Glomerular Filtration Rate 12, BUN/Creatinine Ratio 4, Glucose Level 103, Calcium Level 8.7 12/07/16 06:19: White Blood Count 16.1H, Red Blood Count 3.15L, Hemoglobin 9.6L, Hematocrit 30L , Mean Corpuscular Volume 95, Mean Corpuscular Hemoglobin 31, Mean Corpuscular Hemoglobin Concent 32, Red Cell Distribution Width 16.6H, Platelet Count 433H, Mean Platelet Volume 11.1H, Prothrombin Time 34.2H, INR Comment 3.4H, Sodium Level 136, Potassium Level 3.5L, Chloride Level 93L, Carbon Dioxide Level 30, Anion Gap 13, Blood Urea Nitrogen 20H, Creatinine 4.77H, Estimat Glomerular Filtration Rate 9, BUN/Creatinine Ratio 4, Glucose Level 88, Calcium Level 9.2 Assessment/Plan Assessment C spine stenosis s/p decompression C3 thur C6 with anterior cervical discectomy and fusion DR Hand [facility] ESRD on dialysis TIW A FIB controlled with meds Chronic anticoagulation INR noted Postop anemia Hypokalemia-treated Left shoulder pain Back pain Bilateral pleural effusions Plan Continue PT/OT as tolerated F/U with DR meier Trend INR and adjust Coumadin dose as needed Voltaran gel for shoulder pain See orders Repeat labs-as well as obtain U/A and CXR-See orders-done Will repeat CXR Team Conference held earlier yesterday--See report for full functional update and POC F/U with DR meier re imaging reports Discharge on hold for now due to above issues THANG TONG MD Dec 08, 2016 08:27
[2016-12-08] MEDS: SEVELAMER CARBONATE 800 MG TAB (RENVELA) NON-FORMULARY PO SCH ×4 (08:46→17:50)
[2016-12-08 09:44] LABS: BASOPHILS % (AUTO) 0 % (0-10); EOSINOPHILS % (AUTO) 0 % (0-10); LYMPHOCYTES # (AUTO) 2.2 X 10^3 (1.0-4.0); LYMPHOCYTES % (AUTO) 13 % (12-44); MEAN CORPUSCULAR HEMOGLOBIN 30 PG (25-34); MEAN CORPUSCULAR HGB CONC 32 G/DL (32-36); MEAN CORPUSCULAR VOLUME 95 FL (80-99); MONOCYTES # (AUTO) 2.1 X 10^3 (0.0-1.0); MONOCYTES % (AUTO) 13 % (0-12); NEUTROPHILS # (AUTO) 12.3 X 10^3 (1.8-7.8); NEUTROPHILS % (AUTO) 74 % (42-75); PLATELET COUNT 434 10^3/uL (130-400); RED BLOOD COUNT 3.29 10^6/uL (4.35-5.85); RED CELL DISTRIBUTION WIDTH 16.8 % (10.0-14.5); WHITE BLOOD COUNT 16.5 10^3/uL (4.3-11.0)
[2016-12-08 09:59] LABS: ANISOCYTOSIS SLIGHT; BAND NEUTROPHILS 0 %; BASOPHILS % (MANUAL) 0 %; EOSINOPHILS % (MANUAL) 0 %; HYPOCHROMASIA SLIGHT; LYMPHOCYTES % (MANUAL) 16 %; NEUTROPHILS % (MANUAL) 80 %; POIKILOCYTOSIS SLIGHT; TARGET CELLS SLIGHT
[2016-12-08 10:00] LABS: HOWELL-JOLLY BODIES SLIGHT
[2016-12-08 10:02] LABS: BILIRUBIN,TOTAL 0.5 MG/DL (0.1-1.0); CALCIUM 9.2 MG/DL (8.5-10.1); CREATININE SERUM 3.47 MG/DL (0.60-1.30); POTASSIUM 3.4 MMOL/L (3.6-5.0); TOTAL PROTEIN 5.8 G/DL (6.4-8.2)
--- NOTE | 2016-12-08 11:17 | Occ Therapy Progress Note ---
Therapy Progress Note Pt. on hold this date for severe constipation. Pt. had enema earlier. Was supposed to transfer to [facility] today. Will continue to monitor pt. 1100 YARA DEL ANGEL OT Dec 08, 2016 11:17
[2016-12-08 18:24] VITALS: BP 190/72
[2016-12-08] MEDS: ATORVASTATIN 10 MG (LIPITOR) TABLET PO SCH (20:55)
[2016-12-08] MEDS: FAMOTIDINE 20 MG (PEPCID) TABLET PO SCH (20:55)
[2016-12-08] MEDS: CINACALCET 30 MG PO SCH (20:55)
[2016-12-09 05:30] VITALS: BP 176/70
[2016-12-09] MEDS: PANTOPRAZOLE 40 MG (PROTONIX) TAB PO SCH (06:45)
[2016-12-09] MEDS: SEVELAMER CARBONATE 800 MG TAB (RENVELA) NON-FORMULARY PO SCH ×2 (06:46→11:52)
--- NOTE | 2016-12-09 08:37 | Progress Note (SOAP) ---
Subjective Subjective/Events-last exam patient feeling better today. Patient had been bowel movement yesterday. Plan to discharge today Objective Exam Vital Signs Date Time Temp Pulse Resp B/P (MAP) Pulse Ox O2 Delivery O2 Flow Rate FiO2 12/09/16 05:30 97.7 70 20 176/70 92 Room Air 12/08/16 20:10 1.50 12/08/16 18:24 98.7 66 14 190/72 92 I & O 12/09/16 07:00 Intake Total 450 ml Balance 450 ml Capillary Refill : General Appearance: No Apparent Distress, WD/WN HEENT: Normal ENT Inspection Neck: Normal Inspection Respiratory: Chest Non Tender, No Accessory Muscle Use, No Respiratory Distress Results Lab Laboratory Tests 12/08/16 09:24: White Blood Count 16.5H, Red Blood Count 3.29L, Hemoglobin 10.0L, Hematocrit 31L , Mean Corpuscular Volume 95, Mean Corpuscular Hemoglobin 30, Mean Corpuscular Hemoglobin Concent 32, Red Cell Distribution Width 16.8H, Platelet Count 434H, Mean Platelet Volume 11.0H, Neutrophils (%) (Auto) 74, Lymphocytes (%) (Auto) 13 , Monocytes (%) (Auto) 13H, Eosinophils (%) (Auto) 0, Basophils (%) (Auto) 0, Neutrophils # (Auto) 12.3H, Lymphocytes # (Auto) 2.2, Monocytes # (Auto) 2.1H, Eosinophils # (Auto) 0.0, Basophils # (Auto) 0.0, Neutrophils % (Manual) 80, Lymphocytes % (Manual) 16, Monocytes % (Manual) 4, Eosinophils % (Manual) 0, Basophils % (Manual) 0, Band Neutrophils 0, Hypochromasia SLIGHT, Poikilocytosis SLIGHT, Anisocytosis SLIGHT, Target Cells SLIGHT, Be-[place] Bodies SLIGHT, Sodium Level 139, Potassium Level 3.4L, Chloride Level 94L, Carbon Dioxide Level 30, Anion Gap 15H, Blood Urea Nitrogen 12, Creatinine 3.47H , Estimat Glomerular Filtration Rate 13, BUN/Creatinine Ratio 3, Glucose Level 117H, Calcium Level 9.2, Total Bilirubin 0.5, Aspartate Amino Transf (AST/SGOT) 21, Alanine Aminotransferase (ALT/SGPT) 6, Alkaline Phosphatase 316H, Total Protein 5.8L, Albumin 3.0L Assessment/Plan Assessment/Plan Assess & Plan/Chief Complaint cervical stenosis. Debility. Renal failure. Hypertension. Hyperlipidemia. . Cervical stenosis. Debility. Renal failure. Hypertension. hyperlipidemia. . . Cervical stenosis. Renal failure. Hypertension. Patient just doesn't feel good but doesn't know why. . 12/07/16. Cervical stenosis. Renal failure . Leukocytosis. Blood in the stools has internal Hemorrhoids. Consult with surgeon. . Cervical stenosis. Debility. Renal failure. 12/08/16. Patient constipated to have fleets enema. . 12/09/16. Cervical stenosis. Debility. Renal failure. Hypertension.. Patient feeling better today. Enema work and patient has been bowel movement Clinical Quality Measures DVT/VTE Risk/Contraindication: Risk Factor Score Per Nursin RFS Level Per Nursing on Admit: 4+=Very High AN PEREZ DO Dec 09, 2016 08:37
--- NOTE | 2016-12-09 09:11 | Diagnostic Imaging Report ---
INDICATION: Pleural effusions. TECHNIQUE: Two view chest at 9:05 AM. CORRELATION STUDY: 12/07/2016. FINDINGS: The heart size and mediastinum are stable. The vasculature is perhaps slightly diminished from the prior study. Moderate bilateral pleural effusions are overall generally stable. Likely associated atelectasis or infiltrate is noted at the lung bases. The interstitial markings appear slightly less congested. There are surgical changes with clips over the left chest. Old healed right-sided rib fractures are present. IMPRESSION: Bilateral pleural effusions, moderate in size and generally stable. Likely associated atelectasis or infiltrate at the lung bases. The vasculature overall appears less congested from prior imaging. Dictated by: Dictated on workstation # [id number]
--- NOTE | 2016-12-09 09:12 | Physical Therapy Daily Note ---
PT Daily Note-Current Subjective Agrees to get OOB and walk. Transfers Functional [place] Measure 0=Not Assessed/NA 4=Minimal Assistance 1=Total Assistance 5=Supervision or Setup 2=Maximal Assistance 6=Modified [place] 3=Moderate Assistance 7=Complete IndependenceIRFPAI Quality Coding Scale 6 Independent with activity with or without an assistive device 5 Patient requires set up or clean up by helper. Patient completes activity by themselves 4 Supervision or touching assist (CGA). [place] provide cues , steadying assist 3 The helper provides less than half the effort to complete the activity 2 The helper provides more than half the effort to complete the activity 1 Dependent. The helper does all the effort to complete an activity 7 Patient refused to complete or attempt activity 9 The patient did not perform the activity before the current illness or injury 88 Not attempted due to Medical conditions or safety concerns Transfers (B, C, W/C) (FIM): 4 Scootin Rollin Roll Left to Right (QC): 4 Supine to/from Sit: 4 (min assist to lift trunk) Sit to/from Stand: 5 (SBA) Sit to Lying (QC): 4 (min assist with legs) Sit to Stand (QC): 5 Chair/Lte-xg-Pnoal Xfer(QC): 5 Gait Training Does the Patient Walk?: Yes Gait (FIM): 5 Distance (FIM): 3=150 ft Walk 10 feet (QC): 5 Walk 50 ft with 2 Turns(QC): 5 Walk 150 ft (QC): 5 Walking 10ft/uneven surface-QC: 4 Gait Assistive Device: FWW slow gait with head down; decreased step length and foot clearance, but is able to clear. Some difficulty managing turns with walker but does so if given time. Stair Training Stair Training: Handrails/: uses walker Stairs (FIM): 2 #of Steps: 1 1 Step (curb) (QC): 4 (min assist for safety and assist with walker) 4 Steps (QC): 9 12 Steps (QC): 9 Stairs: Pattern: Step to Balance Picking up an Object (QC): 9 (unsafe to attempt) Exercises NuStep Minutes: 5 (workload 1) Assessment Current Status: Fair Progress Functional transfers, gait and nu step PT Short Term Goals Short Term Goals Time Frame: Dec 07, 2016 Gait (FIM): 4 (met 12/05/16) Distance (FIM): 3=150 ft Gait Assistive Device: FWW PT Patient Safety Tech Goals Shelter Goals PT Shelter Goals Time Frame: December 16, 2016 Transfers (B,C,W/C) (FIM): 6 Sit to Lying (QC): 6 Lying-Sitting on Side/Bed(QC): 6 Sit to Stand (QC): 6 Rollin Roll Left to Right (QC): 6 Chair/Eno-gv-Sxgwl Xfer(QC): 6 Car Transfer (QC): 5 Does the Patient Walk: Yes Gait (FIM): 6 Gait distance (FIM): 3=150 ft Walk 10 feet (QC): 6 Walk 10ft-Uneven Surface(QC): 6 Walk 50ft with 2 Turns (QC): 6 Walk 150 ft (QC): 6 Gait Assistive Device: FWW Does the Pt use WC or Scooter?: No Stairs (FIM): 2 # of Steps: 4 1 Step (curb) (QC): 5 4 Steps (QC): 5 12 Steps (QC): 88 Picking up an Object (QC): 88 PT Plan Problem List Problem List: Activity Tolerance, Functional Strength, Safety Treatment/Plan Treatment Plan: Continue Plan of Care Treatment Plan: Bed Mobility, Education, Functional Activity Franco, Functional Strength, Group Therapy, Gait, Safety, Therapeutic Exercise, Transfers Treatment Duration: December 16, 2016 Visits Per Week: 10-15 Minutes/Day (M-F): 60-90 Minutes/Day (Sat/[place]): prn Safety Risks/Education Patient Education: Transfer Techniques, Safety Issues Teaching Recipient: Patient Teaching Methods: Discussion Response to Teaching: Reinforcement Needed Time/GCodes Time In: 730 Time Out: 800 Total Billed Treatment Time: 30 Total Billed Treatment visit GT 20 FA 10 JAVI LEONG PT Dec 09, 2016 09:12
--- NOTE | 2016-12-09 09:17 | Physical Therapy Daily Note ---
PT Daily Note-Current Subjective Agrees to work with PT./OT to shower and dress. Mental Status Patient Orientation: Person, Place, Time, Situation Transfers Functional [place] Measure 0=Not Assessed/NA 4=Minimal Assistance 1=Total Assistance 5=Supervision or Setup 2=Maximal Assistance 6=Modified [place] 3=Moderate Assistance 7=Complete IndependenceIRFPAI Quality Coding Scale 6 Independent with activity with or without an assistive device 5 Patient requires set up or clean up by helper. Patient completes activity by themselves 4 Supervision or touching assist (CGA). [place] provide cues , steadying assist 3 The helper provides less than half the effort to complete the activity 2 The helper provides more than half the effort to complete the activity 1 Dependent. The helper does all the effort to complete an activity 7 Patient refused to complete or attempt activity 9 The patient did not perform the activity before the current illness or injury 88 Not attempted due to Medical conditions or safety concerns Car Transfer (QC): 4 Treatments Co treat with OT due to necessity for multiple disciplines to effectively complete task. Pt undressed, showered and re dressed. OT addressed use of UE and self care tasks, whilst PT addressed functional and safe sit to stand transfers, multiple times, walking short distances in room and making multiple turns safely, standing safely at sink as well as sit to stand transfers in shower. PT addressed functional balance in sitting and standing as well as static and dynamic while pt completed self care and multiple different positions. Pt also had short bouts of walking in the [place] to move from surface to surface to prepare for OT activies. Assessment Current Status: Fair Progress Pt needs nearly constant cues to try to do for herself. Pt Does seem to feel better since last seen by this therapist, but still often need cues to participate. Functional mobility is at or near her max potential at this time. PT Short Term Goals Short Term Goals Time Frame: Dec 07, 2016 Gait (FIM): 4 (met 12/05/16) Distance (FIM): 3=150 ft Gait Assistive Device: FWW PT Mcc Goals Aircraft Engine Specialist Goals PT Aircraft Engine Specialist Goals Time Frame: December 16, 2016 Transfers (B,C,W/C) (FIM): 6 Sit to Lying (QC): 6 Lying-Sitting on Side/Bed(QC): 6 Sit to Stand (QC): 6 Rollin Roll Left to Right (QC): 6 Chair/Eyy-iq-Nklfu Xfer(QC): 6 Car Transfer (QC): 5 Does the Patient Walk: Yes Gait (FIM): 6 Gait distance (FIM): 3=150 ft Walk 10 feet (QC): 6 Walk 10ft-Uneven Surface(QC): 6 Walk 50ft with 2 Turns (QC): 6 Walk 150 ft (QC): 6 Gait Assistive Device: FWW Does the Pt use WC or Scooter?: No Stairs (FIM): 2 (met able to go up/down 1 step with min assist) # of Steps: 4 1 Step (curb) (QC): 5 4 Steps (QC): 5 12 Steps (QC): 88 Picking up an Object (QC): 88 At this time, no goals have been met. PT Plan Problem List Problem List: Activity Tolerance, Functional Strength Treatment/Plan Treatment Plan: Continue Plan of Care (vs discharge to [facility] this date) Treatment Plan: Bed Mobility, Education, Functional Activity Franco, Functional Strength, Group Therapy, Gait, Safety, Therapeutic Exercise, Transfers Treatment Duration: December 16, 2016 Visits Per Week: 10-15 Minutes/Day (M-F): 60-90 Minutes/Day (Sat/[place]): prn Discharge Recommendations Plan Possible discharge to [facility] today; pending lab results. Therapy D/C Recommendations: [place] (TCU/NH) (f/u PT) Time/GCodes Time In: 800 Time Out: 900 Total Billed Treatment Time: 60 Total Billed Treatment Co treat with OT visit FA 30 Neuro 30 JAVI LEONG PT Dec 09, 2016 09:17
[2016-12-09] MEDS: meTOproloL SUCCINATE 50 MG (TOPROL XL) TAB PO SCH (09:20)
[2016-12-09] MEDS: DICLOFENAC 1% GEL 100 GM (VOLTAREN) TUBE TOP SCH ×2 (09:20→13:08)
--- NOTE | 2016-12-09 10:15 | PM & R (SOAP) Progress Note ---
Subjective Subjective/Events-last exam Patient was seen in her room this AM Feeling better after BM and CXR stable for pleural effusions Patient to dialysis today and they they can f/u re fluid management,CBC pending due to difficult stick.Discussed with RN Local [facility] willing to accept patient today after Dialysis concludes this afternoon Appreciate Therapy notes and DR Kothari notes,Patient Min assist for transfers. Objective Exam Last Set of Vital Signs Vital Signs Date Time Temp Pulse Resp B/P (MAP) Pulse Ox O2 Delivery O2 Flow Rate FiO2 12/09/16 05:30 97.7 70 20 176/70 92 Room Air 12/08/16 20:10 1.50 Capillary Refill : I&O Intake and Output 12/09/16 00:00 Intake Total 400 ml Balance 400 ml Intake Oral 400 ml # Voids 2 # Bowel Movements 1 General: Alert, Oriented X3, Cooperative, No Acute Distress, Other (mildly agiated at times) HEENT: Atraumatic, PERRLA, EOMI, Mucous Memb Moist/[place], Other (02 by N/C in place) Neck: Supple, No JVD Lungs: Clear to Auscultation Heart: Regular Rate Abdomen: Normal Bowel Sounds, Soft, No Tenderness Extremities: No Edema, Other (left shoulder non tender to touch) Skin: Other (incision site healing well) Neuro: Other (Generalized weakness) Psych/Mental Status: Other (restless at times) Results Lab Laboratory Tests 12/07/16 06:19: White Blood Count 16.1H, Red Blood Count 3.15L, Hemoglobin 9.6L, Hematocrit 30L , Mean Corpuscular Volume 95, Mean Corpuscular Hemoglobin 31, Mean Corpuscular Hemoglobin Concent 32, Red Cell Distribution Width 16.6H, Platelet Count 433H, Mean Platelet Volume 11.1H, Prothrombin Time 34.2H, INR Comment 3.4H, Sodium Level 136, Potassium Level 3.5L, Chloride Level 93L, Carbon Dioxide Level 30, Anion Gap 13, Blood Urea Nitrogen 20H, Creatinine 4.77H, Estimat Glomerular Filtration Rate 9, BUN/Creatinine Ratio 4, Glucose Level 88, Calcium Level 9.2 12/08/16 09:24: White Blood Count 16.5H, Red Blood Count 3.29L, Hemoglobin 10.0L, Hematocrit 31L , Mean Corpuscular Volume 95, Mean Corpuscular Hemoglobin 30, Mean Corpuscular Hemoglobin Concent 32, Red Cell Distribution Width 16.8H, Platelet Count 434H, Mean Platelet Volume 11.0H, Sodium Level 139, Potassium Level 3.4L, Chloride Level 94L, Carbon Dioxide Level 30, Anion Gap 15H, Blood Urea Nitrogen 12, Creatinine 3.47H, Estimat Glomerular Filtration Rate 13, BUN/Creatinine Ratio 3 , Glucose Level 117H, Calcium Level 9.2, Neutrophils (%) (Auto) 74, Lymphocytes (%) (Auto) 13, Monocytes (%) (Auto) 13H, Eosinophils (%) (Auto) 0, Basophils (% ) (Auto) 0, Neutrophils # (Auto) 12.3H, Lymphocytes # (Auto) 2.2, Monocytes # ( Auto) 2.1H, Eosinophils # (Auto) 0.0, Basophils # (Auto) 0.0, Neutrophils % ( Manual) 80, Lymphocytes % (Manual) 16, Monocytes % (Manual) 4, Eosinophils % ( Manual) 0, Basophils % (Manual) 0, Band Neutrophils 0, Hypochromasia SLIGHT, Poikilocytosis SLIGHT, Anisocytosis SLIGHT, Target Cells SLIGHT, Be-[place] Bodies SLIGHT, Total Bilirubin 0.5, Aspartate Amino Transf (AST/SGOT) 21, Alanine Aminotransferase (ALT/SGPT) 6, Alkaline Phosphatase 316H, Total Protein 5.8L, Albumin 3.0L Assessment/Plan Assessment C spine stenosis s/p decompression C3 thur C6 with anterior cervical discectomy and fusion DR Hand [facility] ESRD on dialysis TIW A FIB controlled with meds Chronic anticoagulation INR noted Postop anemia Hypokalemia-treated Left shoulder pain Back pain Bilateral pleural effusions Leukocytosis Plan Continue PT/OT as tolerated F/U with DR fairbanks Trend INR and adjust Coumadin dose as needed Voltaran gel for shoulder pain See orders Repeat labs-as well as obtain U/A and CXR-See orders-done Will repeat CXR-done stable Team Conference held 12/07/16--See report for full functional update and POC Discharge reset for today to [facility] today after todays dialysis session F/U with PCP or [facility] Physician and Renal Physician THANG TONG MD Dec 09, 2016 10:15
[2016-12-09] MEDS ORDERED: BISA5TAB8 PO (10:44)
[2016-12-09] MEDS ORDERED: HYDR-3816 PO (10:44)
--- NOTE | 2016-12-09 11:50 | Occupational Ther Daily Note ---
OT Current Status-Daily Note Subjective Pt agrees to treatment this am and to shower. Mental Status/Objective Functional [place] Measure 0=Not Assessed/NA 4=Minimal Assistance 1=Total Assistance 5=Supervision or Setup 2=Maximal Assistance 6=Modified [place] 3=Moderate Assistance 7=Complete [place] ADL-Treatment Co-treat with PT this am. OT addressing ADL completion, UE management during transfers and functional tasks, and safety. PT addressing transfers, balance, mobility, and safety. Pt completed toilet transfer with CGA. Does not void at this time. Pt transferred to walk in shower with CGA with skilled cues for safety. Pt able to wash bilateral upper legs and attempts to wash abdomen and UE with much encouragement, but is unable to effectively complete task. Assist required for all other areas. Pt able to initiate threading bilateral UE into sleeves, but requires assist to parts puller head and pull shirt down. Max assist to don pants. Stood with CGA for balance during pant hike. Pt requires total assist to don socks. Pt removed teeth with increased time. Assist was given to complete denture care. Pt performed multiple transfers during session. Pt often requests assist with ADL tasks before even attempting task. Pt donned jacket with maximal assistance. Transferred to w/c with SBA using FWW. Pt assisted to car for dialysis with minimal assistance after session. Functional [place] Measure 0=Not Assessed/NA 4=Minimal Assistance 1=Total Assistance 5=Supervision or Setup 2=Maximal Assistance 6=Modified [place] 3=Moderate Assistance 7=Complete IndependenceIRFPAI Quality Coding Scale 6 Independent with activity with or without an assistive device 5 Patient requires set up or clean up by helper. Patient completes activity by themselves 4 Supervision or touching assist (CGA). [place] provide cues , steadying assist 3 The helper provides less than half the effort to complete the activity 2 The helper provides more than half the effort to complete the activity 1 Dependent. The helper does all the effort to complete an activity 7 Patient refused to complete or attempt activity 9 The patient did not perform the activity before the current illness or injury 88 Not attempted due to Medical conditions or safety concerns Eating (FIM): 2 (per nursing report) Eating (QC): 2 Grooming (FIM): 2 Oral Hygiene (QC): 3 Bathing (FIM): 2 Shower/Bathe Self (QC): 2 Upper Body (FIM): 2 Upper Body Dressing (QC): 2 Lower Body Dressing (FIM): 2 Lower Body Dressing (QC): 2 On/Off Footwear (QC): 1 Toilet/Commode Transfer (FIM): 4 (CGA) Toilet Transfer (QC): 4 Shower Transfer(FIM): 4 (CGA) OT Short Term Goals Short Term Goals Time Frame: Dec 07, 2016 Eating(FIM): 3 Grooming(FIM): 3 Upper Body Dressing(FIM): 3 Toileting(FIM): 2 Additional Short Term Goals: 1-Demonstrate ADL Tasks, 2-Verbalize Understanding , 3-ImproveStrength/Franco 1=Demonstrate adherence to instructed precautions during ADL tasks. 2=Patient will verbalize/demonstrate understanding of assistive devices/ modifications for ADL. 3=Patient will improve strength/tolerance for activity to enable patient to perform ADL's. OT [facility] Goals Per Diem Nurse Goals Time Frame: December 21, 2016 Eating (FIM): 5 (not met) Eating (QC): 5 (2-not met) Groomin (not met) Oral Hygiene (QC): 5 (3-not met) Bathing(FIM): 4 (not met) Shower/Bathe Self (QC): 3 (2-not met) Upper Body Dressing(FIM): 4 (not met) Upper Body Dressing (QC): 3 (2-not met) Lower Body Dressing(FIM): 4 (not met) Lower Body Dressing (QC): 3 (2-not met) On/Off Footwear (QC): 3 (1-not met) Toileting(FIM): 4 Toileting Hygiene (QC): 3 Toilet/Commode Transfer(FIM): 6 (not met ) Toilet/Commode Transfer (QC): 6 (4-not met) Shower Transfer(FIM): 5 (not met) Additional Goals: 1-Demonstrate ADL Tasks, 2-Verbalize Understanding, 3- ImproveStrength/Franco 1=Demonstrate adherence to instructed precautions during ADL tasks. 2=Patient will verbalize/demonstrate understanding of assistive devices/ modifications for ADL. 3=Patient will improve strength/tolerance for activity to enable patient to perform ADL's. OT Education/Plan Problem List/Assessment Pt to benefit from skilled OT intervention for ADL training, transfers, strengthening, and safety education to maximize level of function and allow return to assisted living facility. Discharge Recommendations Plan/Recommendations: Continue POC Treatment Plan/Plan of Care Patient would benefit from OT for education, treatment and training to promote independence in ADL's, mobility, safety and/or upper extremity function for ADL' s. Plan of Care: ADL Retraining, Functional Mobility, Group Exercise/Act as Ind, UE Funct Exercise/Act, UE Neuromus Re-Ed/Coord Treatment Duration: December 21, 2016 Visits Per Week: 10-12 Minutes/Day (M-F): 60-90 Minutes/Day (Sat/[place]): PRN Rehab Potential: Fair Time/GCodes Start Time: 08:00 Stop Time: 09:30 Total Time Billed (hr/min): 90 Billed Treatment Time 1 visit, ADLx4(60minutes) Co-treat with PT [id number] FAx2(30minutes) ANGELY LONDON OT Dec 09, 2016 11:49
[2016-12-09 16:30] VITALS: BP 135/68
--- NOTE | 2016-12-10 10:29 | Therapy Team Discharge Summary ---
Therapy Discharge Summary Discharge Recommendations Date of Discharge Dec 09, 2016 at 16:33 Therapy D/C Recommendations: [facility] (TCU/NH) (f/u PT) Physical Therapy Patient came to rehab following cervical spinal surgery. Upon admission patient min to mod assist for bed mobility and transfers, ambulated 40' with a rolling walker with CGA/[place], and was unable to safely perform stairs. Patient has been performing bed mobility and transfer training, balance and endurance training, functional strengthening, gait training, and education. Patient has made fair progress but has not met any of her usp goals. Now, patient performs bed mobility with CGA/[place], transfers with SBA, ambulates 150' with SBA using a rolling walker (including 50' with at least 2 turns of 90 degrees, 10 over uneven surfaces with [place]/CGA), and up and down 1 step using a rolling walker with min assist. Patient was discharged from this facility and will be discharged from PT at this time. PT Bottom Cementer Goals Bottom Cementer Goals PT Bottom Cementer Goals Time Frame: December 16, 2016 Transfers (B,C,W/C) (FIM): 6 Roll Left to Right (QC): 6 Sit to Lying (QC): 6 Lying-Sitting on Side/Bed(QC): 6 Sit to Stand (QC): 6 Chair/Mis-ne-Ruitz Xfer(QC): 6 Car Transfer (QC): 5 Does the Patient Walk: Yes Gait (FIM): 6 Gait distance (FIM): 3=150 ft Walk 10 feet (QC): 6 Walk 10ft-Uneven Surface(QC): 6 Walk 50ft with 2 Turns (QC): 6 Walk 150 ft (QC): 6 Gait Assistive Device: FWW Does the Pt use WC or Scooter?: No Stairs (FIM): 2 (met able to go up/down 1 step with min assist) # of Steps: 4 1 Step (curb) (QC): 5 4 Steps (QC): 5 12 Steps (QC): 88 Picking up an Object (QC): 88 OT [facility] Goals [facility] Goals Time Frame: December 21, 2016 Eating (FIM): 5 (not met) Eating (QC): 5 (2-not met) Oral Hygiene (QC): 5 (3-not met) Grooming(FIM): 5 (not met) Bathing(FIM): 4 (not met) Shower/Bathe Self (QC): 3 (2-not met) Upper Body Dressing(FIM): 4 (not met) Upper Body Dressing (QC): 3 (2-not met) Lower Body Dressing(FIM): 4 (not met) Lower Body Dressing (QC): 3 (2-not met) On/Off Footwear (QC): 3 (1-not met) Toileting(FIM): 4 Toileting Hygiene (QC): 3 Toilet/Commode Transfer(FIM): 6 (not met ) Toilet/Commode Transfer (QC): 6 (4-not met) Shower Transfer(FIM): 5 (not met) Additional Goals: 1-Demonstrate ADL Tasks, 2-Verbalize Understanding, 3- ImproveStrength/Franco 1=Demonstrate adherence to instructed precautions during ADL tasks. 2=Patient will verbalize/demonstrate understanding of assistive devices/ modifications for ADL. 3=Patient will improve strength/tolerance for activity to enable patient to perform ADL's. Speech Bottom Cementer Goals [facility] Goals 1. The patient will tolerate the least restrictive diet without signs/symptoms of aspiration or laryngeal penetration. MET 12/01/16 Time Frame: Four Days MOLINA RIZVI PT Dec 10, 2016 10:29
--- NOTE | 2016-12-12 13:08 | Therapy Team Discharge Summary ---
Therapy Discharge Summary Discharge Recommendations Date of Discharge Dec 09, 2016 at 16:33 Therapy D/C Recommendations: Assisted (TCU/NH) (f/u PT) Occupational Therapy Pt admitted to ARU following cervical spine surgery. On admission to required maximal assistance for ADLs and minimal assistance for toilet transfer. Skilled OT intervention focused on ADL training, transfers, and UE ROM/strengthening. At d/c pt is requiring max assist for ADLs and CGA for toilet transfer. Pt did not meet any OT LTG. Pt discharged to [facility] for continued care. D/C ARU OT at this time. PT Operations Support Representative Goals Fdc Goals PT Operations Support Representative Goals Time Frame: December 16, 2016 Transfers (B,C,W/C) (FIM): 6 Roll Left to Right (QC): 6 Sit to Lying (QC): 6 Lying-Sitting on Side/Bed(QC): 6 Sit to Stand (QC): 6 Chair/Mzd-[id number] Xfer(QC): 6 Car Transfer (QC): 5 Does the Patient Walk: Yes Gait (FIM): 6 Gait distance (FIM): 3=150 ft Walk 10 feet (QC): 6 Walk 10ft-Uneven Surface(QC): 6 Walk 50ft with 2 Turns (QC): 6 Walk 150 ft (QC): 6 Gait Assistive Device: FWW Does the Pt use WC or Scooter?: No Stairs (FIM): 2 (met able to go up/down 1 step with min assist) # of Steps: 4 1 Step (curb) (QC): 5 4 Steps (QC): 5 12 Steps (QC): 88 Picking up an Object (QC): 88 OT Fdc Goals Operations Support Representative Goals Time Frame: December 21, 2016 Eating (FIM): 5 (not met) Eating (QC): 5 (2-not met) Oral Hygiene (QC): 5 (3-not met) Grooming(FIM): 5 (not met) Bathing(FIM): 4 (not met) Shower/Bathe Self (QC): 3 (2-not met) Upper Body Dressing(FIM): 4 (not met) Upper Body Dressing (QC): 3 (2-not met) Lower Body Dressing(FIM): 4 (not met) Lower Body Dressing (QC): 3 (2-not met) On/Off Footwear (QC): 3 (1-not met) Toileting(FIM): 4 Toileting Hygiene (QC): 3 Toilet/Commode Transfer(FIM): 6 (not met ) Toilet/Commode Transfer (QC): 6 (4-not met) Shower Transfer(FIM): 5 (not met) Additional Goals: 1-Demonstrate ADL Tasks, 2-Verbalize Understanding, 3- ImproveStrength/Franco 1=Demonstrate adherence to instructed precautions during ADL tasks. 2=Patient will verbalize/demonstrate understanding of assistive devices/ modifications for ADL. 3=Patient will improve strength/tolerance for activity to enable patient to perform ADL's. Speech Operations Support Representative Goals Fdc Goals 1. The patient will tolerate the least restrictive diet without signs/symptoms of aspiration or laryngeal penetration. MET 12/01/16 Time Frame: Four Days ANGELY LONDON OT December 12, 2016 13:08
== END 2016-12-09 16:33 | DRG 559 ==
LOC: ENPENDDIS 12-09 15:00
PROVIDERS: ADMIT Physical Medicine & Rehabilitation; ATTEND Physical Medicine & Rehabilitation
DX: Z47.89 Encounter for other orthopedic aftercare (principal); Z98.1 Arthrodesis status; I12.0 Hypertensive chronic kidney disease with stage 5 chronic kidney disease or end stage renal disease; N18.6 End stage renal disease; I48.91 Unspecified atrial fibrillation; J90 Pleural effusion, not elsewhere classified; K59.00 Constipation, unspecified; D64.9 Anemia, unspecified; E87.6 Hypokalemia; E78.5 Hyperlipidemia, unspecified; M25.512 Pain in left shoulder
CPT/HCPCS: 36415; 71020; 72100; 74000; 80048; 80053; 83735; 85007; 85025; 85027; 85610; 94640; 94760